=== PATIENT | female | born 1960 | race Caucasian/White ===

== ENCOUNTER 2017-10-09 10:52 | Inpatient (IN) | payer OTHER ==
[~2017-10-09] VITALS: Ht 165.1 cm; Wt 45.9 kg
[~2017-10-09 10:52] MED LIST: CHLO1CAP56 PO; DIAZ10TA4 PO; ESCI10TA PO; ESOM40CA PO; HYDR2TAB36 PO; ONDA4TAB35 PO; OXYC40TA26 PO; SUCR1TAB27 PO
[2017-10-09] MEDS: D5W-0.45 NACL + KCL 20 MEQ 1,000 ML IV SCH ×3 (13:36→23:56)
[2017-10-09] MEDS: HYDROmorphONE 1 MG/ML SYG IV PRN ×3 (13:44→21:00)
[2017-10-09 13:49] LABS: BASOPHILS % 0.4 % (0.0-2.0); HEMATOCRIT 26.7 % (37.0-47.0); HEMOGLOBIN 7.8 g/dl (12.0-16.0); LYMPHOCYTES # 0.9 10^3/ul (0.8-2.9); LYMPHOCYTES % 7.8 % (15.0-51.0); MEAN CORPUSCULAR HEMOGLOBIN 20.1 pg (29.0-33.0); MEAN CORPUSCULAR HGB CONC 29.2 g/dl (32.0-37.0); MEAN CORPUSCULAR VOLUME 68.6 fl (82.0-101.0); MEAN PLATELET VOLUME 9.1 fl (7.4-10.4); MONOCYTE # 0.5 10^3/ul (0.3-0.9); MONOCYTES % 4.7 % (0.0-11.0); NEUTROPHIL # 9.7 10^3/ul (1.6-7.5); NEUTROPHILS % 86.5 % (39.0-77.0); PLATELET COUNT 540 10^3/UL (140-415); RED BLOOD COUNT 3.89 10^6/ul (4.20-5.40); RED CELL DISTRIBUTION WIDTH 19.7 % (11.5-14.5); WHITE BLOOD COUNT 11.2 10^3/ul (4.8-10.8)
[2017-10-09 14:00] VITALS: Ht 165.1 cm; Wt 45.9 kg
[2017-10-09 14:08] LABS: ALBUMIN 4.8 g/dl (3.3-4.9); ALBUMIN/GLOBULIN RATIO 1.5; BILIRUBIN,INDIRECT 0.2 mg/dl (0-1.1); BILIRUBIN,TOTAL 0.2 mg/dl (0.2-1.3); CALCIUM 9.5 mg/dl (8.4-10.2); CREATININE 0.74 mg/dl (0.44-1.00); MAGNESIUM 1.9 mg/dl (1.7-2.5); POTASSIUM 4.1 mmol/L (3.5-5.1)
[2017-10-09] MEDS ORDERED: BARIUM SULF 2% 450 ML BTL (BERRY SMOOTHIE) PO ONE (15:00)
[2017-10-09] MEDS: ONDANSETRON 4 MG INJ IV PRN ×2 (15:24→23:53)
[2017-10-09] MEDS ORDERED: IOHEXOL 300MG/ML 150 ML BTL ONE (15:49)
[2017-10-09] MEDS ORDERED: SOD CHLORIDE 0.9% 100 ML ONE (15:49)
--- NOTE | 2017-10-09 16:17 | RADRPT ---
PROCEDURE: CT abdomen and pelvis with contrast. CLINICAL INDICATION: Severe abdominal pain. Nausea and vomiting. TECHNIQUE: CT scan of the abdomen and pelvis with contrast was performed after the uneventful intrav enous administration of 90 cc of Omnipaque-300. Coronal and sagittal reformatted images were obtaine d from the axial source images. The total exam CTDI equals 5.27 mGy and the total exam DLP equals 26 3.19 mGy-cm. One or more of the following dose reduction techniques were used: - Automated exposure control. - Adjustment of the mA and/or kV according to patient size. - Use of iterative reconstruction technique. COMPARISON: CT dated 09/06/2015. FINDINGS: Visualized lower thorax: The visualized lung bases are clear. The visualized heart is unremarkable. Bilateral breast implants are partially visualized. Hepatobiliary system and spleen: There sub-centimeter hypodensities scattered throughout the liver that are too small to further characterize. There is no intra or extrahepatic biliary ductal dilatat ion. The gallbladder is unremarkable. The spleen is unremarkable. The pancreas is unremarkable. Adrenal glands and genitourinary system: The adrenal glands are unremarkable. There sub-centimeter hypodensities in both kidneys are too small to further characterize. There is no hydronephrosis. The urinary bladder is unremarkable. The uterus is surgically absent. There are no adnexal masses. Gastrointestinal system: There is no bowel wall thickening or evidence of obstruction. The appendix is not identified, but there is no focal inflammatory process in the right lower quadrant. Peritoneum, vascular system, lymphatics: There is no free intraperitoneal air or free fluid. There is no mesenteric or retroperitoneal adenopathy. There are atherosclerotic changes of the aorta, whic h is nonaneurysmal. Musculoskeletal system and soft tissues: There is a moderate compression deformity of the T12 verte bral body, new when compared the prior, but age indeterminate, with associated 6 mm of retropulsion of the fracture fragments into the spinal canal. There is mild lumbar levoscoliosis and moderate to severe degenerative enthesopathy at L4-5, progressed when compared the prior. There are no concernin g osseous lesions. The soft tissues are unremarkable. IMPRESSION: 1. No acute abnormality or findings to suggest a source of the patient's symptoms. 2. Moderate compression deformity of the T12 vertebral body with associated 6 mm of retropulsion of fracture fragments into the spinal canal, new when compared with the exam from 09/06/2015, but age indeterminate. 3. Vascular calcifications consistent with atherosclerosis. RPTAT: HLBP .Carloz Méndez MD, MD Date Time Electronically viewed and signed by .Carloz Méndez MD, MD on 10/09/2017 16:17 .P/
[2017-10-09 17:17] VITALS: BP 186/91
[2017-10-09] MEDS: PANTOPRAZOLE 40 MG INJ IV SCH (17:17)
[2017-10-09 18:10] VITALS: BP 129/78
[2017-10-09 18:25] LABS: IRON 16 ug/dl (35-150)
[2017-10-09 18:35] LABS: TOTAL IRON BINDING CAPACITY 522 ug/dl (241-421)
[2017-10-09 20:25] VITALS: BP 123/79; RESP 21
[2017-10-09] MEDS: DIAZEPAM 5 MG TAB PO PRN (22:18)
--- NOTE | 2017-10-09 22:43 | CONS ---
DATE OF ADMISSION: 10/09/2017 DATE OF CONSULTATION: 10/09/2017 GASTROENTEROLOGY CONSULTATION Thank you for having me see this patient. HISTORY OF PRESENT ILLNESS: As you know, she is a 57-year-old woman who was admitted to the [facility] because of various complaints. She tells me she has had abdominal pain for 1 month. Apparently, she went to see Dr. Grimm today and was found to have high blood pressure and because of that, was a dmitted. Nonetheless, she describes epigastric burning abdominal pain, continually present for the past month. She denies any palliative or provocative factors. Tries with Pepcid and Prevacid have been unsuccessful. She does use Aleve alternate days for back pain. She has noted a heating pad he lps her abdominal pain. There is no history of peptic ulcer disease. Her last endoscopy in [address] Campuzano there was erosive gastritis and esophagitis. Nonetheless, she has not had any rectal bleeding, melena, fever or chills. She does use oxycodone on a routine basis for back pain. In add ition to these complaints, She also has had problems with vomiting. She states she has been unable to eat for 5 days. She also has had intermittent diarrhea. Monday she has normal bowel movements a nd other days she has vaibhav watery stools. PAST MEDICAL HISTORY: Significant for hospitalization for childbirth and ovarian cancer which led t o a hysterectomy at age 31. ADULT ILLNESSES: Significant for kidney stones and back pain. She denies any heart disease, hypert ension, tuberculosis, diabetes or hepatitis. CHILDHOOD: Denies rheumatic fever or scarlet fever. ALLERGIES: TORADOL CAUSED MILD SWELLING. INJURIES: None. MEDICATIONS: Currently include: 1. Pantoprazole. 2. Clonidine. 3. Zofran. 4. Dilaudid 5. Tylenol 6. Valium. SOCIAL HISTORY: The patient is on disability because of back pain. She smokes cigarettes, approxim ately 1 pack weekly. She does not drink alcohol. FAMILY HISTORY: Noncontributory. REVIEW OF SYSTEMS: Negative except as noted above. PHYSICAL EXAMINATION: GENERAL: Shows in general, the patient is a well-developed, thin white female who looks much older than her stated age. VITAL SIGNS: Blood pressure 186/91. Remainder of vital signs, as per nursing records. SKIN: Clear. HEENT: Negative. LUNGS: Clear to percussion and auscultation. CARDIAC: No murmurs, rubs or gallops. ABDOMEN: Soft, nontender, liver 8 cm, spleen not palpable, no masses, normal bowel sounds. RECTAL: Brown stool. LABORATORY DATA: Remarkable for white count of 11.2, hemoglobin 7.8, hematocrit 26.7, MCV 68.6, bridger telets 540. Chemistry showing normal liver tests except for an alkaline phosphatase of 124, amylase 86, lipase 63. CAT scan has been performed and shows no acute abnormality or findings in the abdom en. IMPRESSION: It is unclear as to the etiology of the patient's epigastric abdominal pain associated with vomiting. Certainly, given her Aleve usage, we may need to consider peptic ulcer disease. Giv en the severity of her symptoms, we will try to arrange for endoscopy. In terms of her diarrhea, I have obtained stool studies. In the interim, we will begin her on a course of proton pump inhibitor s. Further recommendations to follow above in clinical course. Thank you for having me see this patient. Dictated By: IRIS THOMAS/GLORIA Conf#: [id number] DID#: [id number] CC: PRICILA GRIMM MD;*EndCC*
[2017-10-10] VITALS (11 sets, daily range): BP systolic 106–204; BP diastolic 63–118; PULSE 76–98; RESP 16–28
[2017-10-10] MEDS: HYDROmorphONE 1 MG/ML SYG IV PRN ×7 (00:01→21:25)
--- NOTE | 2017-10-10 00:41 | HP ---
DATE OF ADMISSION: 10/09/2017 ADMITTING DIAGNOSES: Abdominal pain, nausea and vomiting. HISTORY OF PRESENT ILLNESS: The patient is a 57-year-old female with chronic back pain, h istory of gastritis, esophagitis, who presents to my office today with 1-week history of nausea, vom iting, abdominal pain and diarrhea. Patient was in her usual state of chronic pain last week when s he started to develop nausea, vomiting and abdominal pain. This was also in conjunction with freque nt loose bowel movements. The patient's daughter came back from [place] with an upper respiratory infe ction, but not a GI infection, and the patient thought she might have been exposed to this. Patient has been unable to tolerate much in the order of oral intake including liquids and food. The patie nt has been having some ice chips and water with some tolerability, but barely anything to eat. The patient denies any hematemesis. The patient reports that her emesis appears to be bilious without any blood or coffee-ground look to it. The patient also denies any black stool, but has had darkish stool, but no vaibhav blood noted. Patient has been having ongoing low back pain, as usual, but more so since she has not been able to tolerate as much of her oral pain medications during the past wee k. REVIEW OF SYSTEMS: Otherwise, unremarkable except for occasional palpitations and weakness. PAST MEDICAL HISTORY: Post-laminectomy syndrome, failed back surgery with lumbar radiculitis, chron ic osteoporosis, vertebral compression fractures, gastritis, esophagitis, history of uterine cancer, depression, and anxiety. PAST SURGICAL HISTORY: Lumbar laminectomy status post kyphoplasty to T7, radical hysterectomy with some chemotherapy. FAMILY HISTORY: Mother of a massive stroke. Mother also had a history of atrial fibrillation, hypertension and dermatomyositis. Sister with hypertension and diverticulitis. ALLERGIES: NONE. MEDICATIONS: 1. OxyContin 40 mg b.i.d. 2. Percocet 7.5/325 p.r.n. 3. Dilaudid 2 mg p.r.n. 4. Diazepam 10 mg at bedtime. 5. Lexapro 10 mg daily. SOCIAL HISTORY: The patient is a , currently on disability due to her back. No tobacco, no al cohol use. She is currently living with her daughter. PHYSICAL EXAMINATION: VITAL SIGNS: Afebrile, pulse 88 and regular, respirations 16, afebrile, blood pressure 129/78; the highest was 186/91. GENERAL: Cachectic female, ill appearing, lying in bed. SKIN: No rashes. There is moderate tenting with decreased turgor. HEENT: EOMI, PERRLA. Oropharynx with decreased mucous pooling. NECK: No jugular venous distention. Decreased range of motion in all directions, 2+ carotid upstro ke, no lymphadenopathy, no thyromegaly. CHEST: Clear to auscultation bilaterally. HEART: Regular rate and rhythm. No murmurs, gallops or rubs noted. ABDOMEN: Nondistended, soft, moderate to severe epigastric and upper abdominal tenderness to palpat ion. No masses noted. No hepatosplenomegaly noted. RECTAL: Deferred to gastroenterology. EXTREMITIES: No cyanosis, clubbing or edema. NEUROLOGIC: There is mild diffuse skeletal muscle atrophy left lower extremity greater than right l ower extremity with decreased pinprick, fine touch, and temperature in the left greater than right l ower extremity. Otherwise, nonfocal. LABORATORY EXAMINATION: White blood cell count 11.2, hematocrit of 26.7, hemoglobin of 7.8, platele t count 540. Sodium 139, potassium 4.1, chloride 100, bicarbonate 25, BUN of 13, creatinine 0.74. Blood glucose of 118, calcium 9.5, magnesium 1.9. Iron 16, TIBC 522, percent saturation 3. Ferriti n 6.1. Alkaline phosphatase 124, ALT of 25, AST of 22, total bilirubin 0.2, amylase 86, lipase of 6 3, albumin 4.8. Abdominal pelvic CT scan with contrast shows no acute abnormality. There is modera te compression deformity of T12 with associated 6 mm of retropulsion of fragments into the spinal ca nal, vascular calcifications consistent with atherosclerosis. IMPRESSION: 1. The patient is a 57-year-old female with history of gastritis, esophagitis, post-avery ectomy syndrome with chronic back pain who was admitted to med/surg for severe abdominal pain, nause a and vomiting. 2. Abdominal pain, nausea and vomiting. The patient with 1-week history of current symptoms. Fide ent with history of gastritis and esophagitis in the past. We will place the patient on clear liqui d diet. Will give IV Protonix. Will give p.r.n. Marvin. We will hydrate the patient with IV D5 n ormal saline. Appreciate Dr. Harding's input into this case. The patient is to undergo upper endoscop y tomorrow for further evaluation and treatment. The patient has iron deficiency anemia consistent with possible bleed. Will continue to monitor this and the patient will likely need transfusion onc e she is hydrated and a dilutional effect is apparent. 3. Post-laminectomy syndrome/lumbar radiculitis. The patient has chronic low back pain related to her failed back surgery. We will continue with Dilaudid p.r.n. with 1 mg every 3 hours as patient c annot tolerate oral medications and cannot receive her OxyContin at this time. 4. Anxiety, depression. We will continue the patient's Lexapro. 5. Iron deficiency anemia. As above, the patient has iron deficiency anemia and is likely related to possible upper intestinal bleed. We will follow her hematocrit and transfuse if necessary as nya l likely be happening tomorrow once the dilutional effect of her hydration it is apparent Dictated By: PRICILA BRONSON MD SR/NTS Conf#: [id number] DID#: [id number]
[2017-10-10] MEDS: ONDANSETRON 4 MG INJ IV PRN ×4 (04:36→22:22)
[2017-10-10] MEDS: PANTOPRAZOLE 40 MG INJ IV SCH ×2 (05:13→18:24)
[2017-10-10 06:26] LABS: ABNORMAL IP MESSAGE 1; BASOPHILS % 0.2 % (0.0-2.0); EOSINOPHILS % 0.1 % (0.0-7.0); HEMATOCRIT 22.3 % (37.0-47.0); LYMPHOCYTES # 2.5 10^3/ul (0.8-2.9); LYMPHOCYTES % 27.3 % (15.0-51.0); MEAN CORPUSCULAR HEMOGLOBIN 20.4 pg (29.0-33.0); MEAN CORPUSCULAR HGB CONC 29.1 g/dl (32.0-37.0); MEAN CORPUSCULAR VOLUME 69.9 fl (82.0-101.0); MEAN PLATELET VOLUME 9.2 fl (7.4-10.4); MONOCYTE # 0.7 10^3/ul (0.3-0.9); MONOCYTES % 7.2 % (0.0-11.0); NEUTROPHIL # 5.9 10^3/ul (1.6-7.5); NEUTROPHILS % 64.9 % (39.0-77.0); PLATELET COUNT 438 10^3/UL (140-415); RED BLOOD COUNT 3.19 10^6/ul (4.20-5.40); RED CELL DISTRIBUTION WIDTH 19.9 % (11.5-14.5)
[2017-10-10 06:49] LABS: POSITIVE DIFF @See below
[2017-10-10 06:51] LABS: HEMOGLOBIN 6.5 g/dl (12.0-16.0)
[2017-10-10 06:52] LABS: PATH REVIEW? YES
[2017-10-10 07:09] LABS: CALCIUM 8.7 mg/dl (8.4-10.2); CREATININE 0.76 mg/dl (0.44-1.00); MAGNESIUM 1.9 mg/dl (1.7-2.5); POTASSIUM 4.1 mmol/L (3.5-5.1)
[2017-10-10] MEDS ORDERED: ACETAMINOPHEN 325 MG TAB PO ONE (08:00)
[2017-10-10] MEDS ORDERED: DIPHENHYDRAMINE 50 MG INJ IV ONE (08:00)
[2017-10-10] MEDS: ESCITALOPRAM 10 MG TAB PO SCH (08:07)
[2017-10-10] MEDS: D5W-0.45 NACL + KCL 20 MEQ 1,000 ML IV SCH ×3 (08:10→20:19)
--- NOTE | 2017-10-10 08:22 | PN ---
DATE: 10/10/2017 SUBJECTIVE: The patient is feeling a little bit better, with less nausea, has not vomited since yes terday. The patient continues to have 8/10 back and abdominal pain as well as a headache. OBJECTIVE: VITAL SIGNS: Temperature 98.2, pulse 65, respirations 21, blood pressure 106/63, oxygen saturation 98% on room air. GENERAL: Well-developed, thin female in no acute distress, lying in bed. LUNGS: Clear to auscultation bilaterally. HEART: Regular rate and rhythm. ABDOMEN: Moderate epigastric tenderness to mild palpation, soft, nondistended, normoactive bowel so unds. LABORATORY DATA: Sodium 138, potassium 4.1, chloride 103, bicarbonate 26, BUN of 8, creatinine 0.76 , glucose 100, calcium 8.7, magnesium 1.9, hemoglobin of 6.5, hematocrit of 22.3, platelets of 438 w josue blood cell count 9.0. ASSESSMENT AND PLAN: 1. Abdominal pain, stable, but persists. Patient with probable acute gastritis with bleed. Patien t is to undergo endoscopy later today. Continue with intravenous Protonix, clear liquids and p.r.n. analgesics. 2. Anemia. The patient now with a hemoglobin of 6.5. Will type and cross 2 units of packed red bl ood cells and transfused 2 units. Will premedicate the first unit with Tylenol and Benadryl. We wi ll continue to follow the hematocrit. 3. Lumbar radiculopathy/back pain, stable, but persistent. Patient with probable new T12 compressi on fracture based on recent CAT scan results. We will continue with analgesia. Patient may need an MRI in the near future as an outpatient to evaluate this further, as there is a 6 mm retropulsion w ith a fragment. 4. Depression, anxiety. We will continue the patient's medication. Dictated By: PRICILA BRONSON MD SR/GLORIA Conf#: [id number] DID#: [id number]
[2017-10-10] MEDS ORDERED: PHENYLephrine (100 MCG/ML) 5ML SYG ONE (15:50)
[2017-10-10] MEDS ORDERED: LIDOCAINE 2% (SDV) 5 ML INJ ONE (15:50)
[2017-10-10] MEDS ORDERED: PROPOFOL 40 ML ONE (15:50)
[2017-10-10] MEDS ORDERED: hydrALAzine 20 MG INJ IV PRN (16:00)
[2017-10-10] MEDS ORDERED: OXYCODONE/ACETAMINOPHEN (5/325) TAB PO PRN ×2 (16:00)
[2017-10-10] MEDS ORDERED: morphine (1 MG/ML) 10ML SYRINGE IV PRN ×2 (16:00)
[2017-10-10] MEDS ORDERED: ONDANSETRON 4 MG INJ IV PRN (16:00)
[2017-10-10] MEDS ORDERED: EPHEDrine SULFATE 50 MG/5 ML SYG IV PRN (16:00)
[2017-10-10] MEDS ORDERED: TRIMETHOBENZAMIDE 100 MG/ML VIAL IM PRN (16:00)
[2017-10-10] MEDS ORDERED: METOCLOPRAMIDE 10 MG INJ IV PRN (16:00)
--- NOTE | 2017-10-10 16:32 | OPPN ---
Date/Time of Note Date/Time of Note DATE: 10/10/17 TIME: 16:26 Proc Note GI Procedure Date 10/10/17 Indication: diagnostic Pre-procedure Diagnosis anemia, pain, nausea and vomiting Post-procedure Diagnosis Diffuse Gastritis Procedure Performed: Endoscopy Surgeon see signature line Supervisor [place] none Anesthesia Type: MAC Tourniquet Time none EBL none Transfusion required none Biopsy 1: gastric Biopsy 2: duodenum Biopsy 3: ge Grafts/Implants none Tubes/Drains none Complication(s) none Procedure Description After informed consent, the patient was placed in left lateral position and sedated per anesthesia. The Olympus video endoscope was easily passed into the patient's esophagus. The instrument advanced to the stomach. The pylorus was seen. The duodenal bulb and second portion of the duodenum were examined. The duodenal bulb appeared normal. The second portion of duodenum appeared normal and vaccine customer representative biopsies were performed. There was no untoward bleeding sites. The instrument was removed the patient's stomach which was carefully examined including turnaround procedure. Diffuse gastric atrophy and erythema was noted. Ice Skating Coach biopsies were performed histologic examination. There is no intra-bleeding from any sites. The instrument was removed to the gastroesophageal junction were irregular Z line was noted. This was biopsied. There is no intra-bleeding from the site. Instrument was removed the proximal esophagus where an inlet patch was noted. The instrument removed and the canal prepared childbirth well. Complications: None Impression: 1. Diffuse gastritis 2. Irregular Z line 3. Inlet patch Plan: 1. Await biopsy results 2. Continue PPI therapy 3. Proceed with gastric emptying study 4. Will need colonoscopy when she is able to tolerate preparation for that. IRIS CHAMBERS MD Oct 10, 2017 16:32
[2017-10-10] MEDS: morphine (1 MG/ML) 10ML SYRINGE IV PRN ×2 (17:09→17:22)
[2017-10-10] MEDS: ACETAMINOPHEN 325 MG TAB PO PRN (20:20)
[2017-10-10] MEDS: DIAZEPAM 5 MG TAB PO PRN (22:20)
[2017-10-11] MEDS: HYDROmorphONE 1 MG/ML SYG IV PRN ×8 (00:25→23:16)
[2017-10-11 02:27] VITALS: BP 131/68; RESP 18
[2017-10-11] MEDS: D5W-0.45 NACL + KCL 20 MEQ 1,000 ML IV SCH ×4 (03:34→23:28)
[2017-10-11 06:18] LABS: BASOPHIL # 0.1 10^3/ul (0.0-0.1); BASOPHILS % 0.5 % (0.0-2.0); EOSINOPHILS # 0.1 10^3/ul (0.0-0.5); EOSINOPHILS % 0.6 % (0.0-7.0); HEMATOCRIT 32.2 % (37.0-47.0); HEMOGLOBIN 9.9 g/dl (12.0-16.0); LYMPHOCYTES # 1.8 10^3/ul (0.8-2.9); LYMPHOCYTES % 17.5 % (15.0-51.0); MEAN CORPUSCULAR HEMOGLOBIN 22.6 pg (29.0-33.0); MEAN CORPUSCULAR HGB CONC 30.7 g/dl (32.0-37.0); MEAN CORPUSCULAR VOLUME 73.3 fl (82.0-101.0); MEAN PLATELET VOLUME 9.2 fl (7.4-10.4); MONOCYTE # 0.7 10^3/ul (0.3-0.9); MONOCYTES % 6.5 % (0.0-11.0); NEUTROPHIL # 7.5 10^3/ul (1.6-7.5); NEUTROPHILS % 74.6 % (39.0-77.0); PLATELET COUNT 395 10^3/UL (140-415); RED BLOOD COUNT 4.39 10^6/ul (4.20-5.40); WHITE BLOOD COUNT 10.1 10^3/ul (4.8-10.8)
[2017-10-11] MEDS: PANTOPRAZOLE 40 MG INJ IV SCH (06:31)
[2017-10-11 06:46] LABS: CALCIUM 9.1 mg/dl (8.4-10.2); CREATININE 0.8 mg/dl (0.44-1.00); MAGNESIUM 1.8 mg/dl (1.7-2.5); POTASSIUM 4.1 mmol/L (3.5-5.1)
[2017-10-11 07:35] VITALS: BP 140/82; RESP 15
[2017-10-11] MEDS: ESCITALOPRAM 10 MG TAB PO SCH (08:10)
--- NOTE | 2017-10-11 09:18 | PN ---
DATE: 10/11/2017 SUBJECTIVE: Patient is feeling about the same; has significant abdominal pain, actually worse since yesterday. The patient also with headaches seems to get worse after Zofran. The patient continues to be nauseated. OBJECTIVE: VITAL SIGNS: Temperature 98.5, pulse of 75, respirations 18, blood pressure 131/68, oxygen saturati on 97% on room air. LUNGS: Clear to auscultation bilaterally. HEART: Regular rate and rhythm. ABDOMEN: Moderate to severe tenderness to mild palpation in the epigastric area, soft, nondistended . Decreased bowel sounds. EXTREMITIES: No cyanosis, clubbing or edema. LABORATORY DATA: Sodium 139, potassium 4.1, chloride 106, bicarbonate 28, BUN of 5, creatinine 0.8, blood sugar 104, calcium 9.1, magnesium 1.8. Hemoglobin of 9.9, hematocrit 32.2, platelets 395, wh ite blood cell count 10.1. ASSESSMENT AND PLAN: 1. Abdominal pain, nausea, vomiting. Patient remained stable. The patient had upper endoscopy yes terday showing a diffuse gastritis and some irregular Z-line and biopsies were obtained from the eso phagus and the stomach. The patient is on schedule for a gastric emptying study today. We will con tinue with current medications with proton pump inhibitor and antiemetics. After the gastric emptyi ng study, we will change patient over to Reglan to see if this improves her nausea and reduce headac he. 2. Anemia, improved after transfusion. We will continue to monitor. 3. Lumbar radiculopathy, post-laminectomy syndrome, stable, but persistent. We will continue with p.r.n. analgesics. Dictated By: PRICILA BRONSON MD, SR/NTS Conf#: [id number] DID#: [id number]
--- NOTE | 2017-10-11 12:50 | CONS ---
Date/Time of Note Date/Time of Note DATE: 10/11/17 TIME: 12:45 Consult Date/Type/Reason Admit Date/Time Oct 09, 2017 at 11:49 Initial Consult Date Type of Consultation: GI Subjective Still complains of abdominal pain and nausea No vomiting noted Only 1 bm recorded since admission Objective Vital Signs Date Time Temp Pulse Resp B/P Pulse Ox O2 Delivery O2 Flow Rate FiO2 10/11/17 07:35 98.6 75 15 140/82 97 10/10/17 17:16 Nasal Cannula 2.0 Abdomen: soft, non tender, + bs Intake and Output 10/10/17 10/10/17 10/11/17 15:00 23:00 07:00 Intake Total 375 ml 200 ml 1600 ml Output Total 1500 ml Balance 375 ml 200 ml 100 ml Results/Medications Result Diagram: 10/11/1751910/11/17 0520 Results 24 hrs Laboratory Tests Test 10/11/17 05:20 10/11/17 05:38 White Blood Count 10.1 Red Blood Count 4.39 # Hemoglobin 9.9 #L Hematocrit 32.2 #L Mean Corpuscular Volume 73.3 L Mean Corpuscular Hemoglobin 22.6 L Mean Corpuscular Hemoglobin Concent 30.7 L Red Cell Distribution Width 21.0 H Platelet Count 395 Mean Platelet Volume 9.2 Neutrophils % 74.6 Lymphocytes % 17.5 Monocytes % 6.5 Eosinophils % 0.6 Basophils % 0.5 Nucleated Red Blood Cells % 0.0 Neutrophils # 7.5 Lymphocytes # 1.8 Monocytes # 0.7 Eosinophils # 0.1 Basophils # 0.1 Nucleated Red Blood Cells # 0.0 Sodium Level 139 Potassium Level 4.1 Chloride Level 106 Carbon Dioxide Level 28 Anion Gap 9 Blood Urea Nitrogen 5 L Creatinine 0.80 Glucose Level 104 Calcium Level 9.1 Magnesium Level 1.8 Lab Scanned Report BLOOD TRANSFUSION Medications Current Medications Potassium Chloride/Dextrose/ Sod Cl (D5-1/2ns + KCl 20 Meq) 1,000 ml @ 125 mls/ hr Q8H IV Last administered on 10/11/17 12:31; Admin Dose 125 MLS/HR; Start 10/09/17 at 13:00 Pantoprazole (Protonix Iv) 40 mg BID@06,18 IV Last administered on 10/11/17 06:31; Admin Dose 40 MG; Start 10/09/17 at 18:00 Ondansetron HCl (Zofran Inj) 4 mg Q4H PRN IV NAUSEA AND/OR VOMITING Last administered on 10/10/17 22:22; Admin Dose 4 MG; Start 10/09/17 at 13:00 Acetaminophen (Tylenol Tab) 650 mg Q6H PRN PO PAIN AND OR ELEVATED TEMP Last administered on 10/10/17 20:20; Admin Dose 650 MG; Start 10/09/17 at 13:00 Diazepam (Valium) 10 mg HS PRN PO insomnia Last administered on 10/10/17 22: 20; Admin Dose 10 MG; Start 10/09/17 at 13:00 Clonidine (Catapres) 0.1 mg Q6H PRN PO ELEVATED BLOOD PRESSURE Last administered on 10/09/17 15:27; Admin Dose 0.1 MG; Start 10/09/17 at 15:30 Hydromorphone HCl (Dilaudid) 1 mg Q3H PRN IV PAIN LEVEL 6-10 Last administered on 10/11/17 12:32; Admin Dose 1 MG; Start 10/09/17 at 21:00 Escitalopram Oxalate (Lexapro) 10 mg DAILY PO ; Start 10/10/17 at 09:00 Metoclopramide HCl (Reglan) 5 mg Q6H PRN IV NAUSEA; Start 10/11/17 at 08:00 Assessment/Plan Chief Complaint/Hosp Course Impression: 1. Abdominal pain and nausea - suspect this may be related to narcotic usage, ? component of delayed gastric emptying from narcotics 2. Barretts Esophagus on bx of GE junction - short segment 3. Iron Deficiency anemia Plan: 1. Await gastric emptying study 2. Advance diet pending above 3. Continue ppi but switch to po 4. Will need elective colonoscopy re iron deficiency anemia 5. FU EGD for Barretts in 1 year Problems: IRIS CHAMBERS MD Oct 11, 2017 12:50
[2017-10-11 14:00] VITALS: BP 161/83; RESP 20
--- NOTE | 2017-10-11 16:50 | RADRPT ---
PROCEDURE: Gastric emptying scan CLINICAL INDICATION: 57 -year-old patient with abdominal pain, nausea and vomiting. TECHNIQUE: Following the oral administration of 1.0 mCi of Tc-99m sulfur colloid, labeled to a day id meal, gastric emptying study was obtained. COMPARISON: No prior studies. FINDINGS: The stomach is well visualized. The small intestines are identified. There is evidence of upper level normal gastric emptying rate from the start of the study with calcu lated T1/2 time of 90 minutes (normal range is 30 - 90 minutes). There is no evidence of increased activity in the chest to suggest the presence of gastroesophageal reflux. IMPRESSION: Upper level normal gastric emptying rate . RPTAT: HH .Andreea Coyne MD, Date Time Electronically viewed and signed by .Andreea Coyne MD, MD on 10/11/2017 16:50 .L/
[2017-10-11] MEDS: METOCLOPRAMIDE 10 MG INJ IV PRN (16:53)
[2017-10-11] MEDS: PANTOPRAZOLE (EC) 40 MG TAB PO SCH (17:30)
[2017-10-11] MEDS: DIAZEPAM 5 MG TAB PO PRN (21:02)
[2017-10-11 21:37] VITALS: BP 135/93; RESP 18
[2017-10-12] VITALS (7 sets, daily range): BP systolic 142–189; BP diastolic 81–97; PULSE 58–72; RESP 16–19
[2017-10-12] MEDS: HYDROmorphONE 1 MG/ML SYG IV PRN ×8 (02:14→22:34)
[2017-10-12] MEDS: PANTOPRAZOLE (EC) 40 MG TAB PO SCH ×2 (05:06→17:14)
[2017-10-12] MEDS: METOCLOPRAMIDE 10 MG INJ IV PRN ×3 (05:11→17:59)
[2017-10-12 05:38] LABS: BASOPHILS % 0.3 % (0.0-2.0); EOSINOPHILS % 0.4 % (0.0-7.0); HEMATOCRIT 31.7 % (37.0-47.0); HEMOGLOBIN 9.8 g/dl (12.0-16.0); LYMPHOCYTES # 2.3 10^3/ul (0.8-2.9); LYMPHOCYTES % 21.7 % (15.0-51.0); MEAN CORPUSCULAR HGB CONC 30.9 g/dl (32.0-37.0); MEAN CORPUSCULAR VOLUME 74.4 fl (82.0-101.0); MEAN PLATELET VOLUME 9.6 fl (7.4-10.4); MONOCYTE # 0.8 10^3/ul (0.3-0.9); MONOCYTES % 7.8 % (0.0-11.0); NEUTROPHIL # 7.5 10^3/ul (1.6-7.5); NEUTROPHILS % 69.3 % (39.0-77.0); PLATELET COUNT 413 10^3/UL (140-415); RED BLOOD COUNT 4.26 10^6/ul (4.20-5.40); RED CELL DISTRIBUTION WIDTH 21.4 % (11.5-14.5); WHITE BLOOD COUNT 10.8 10^3/ul (4.8-10.8)
[2017-10-12] MEDS: D5W-0.45 NACL + KCL 20 MEQ 1,000 ML IV SCH ×2 (06:11→17:54)
[2017-10-12] MEDS: ACETAMINOPHEN 325 MG TAB PO PRN (06:11)
[2017-10-12 06:43] LABS: CALCIUM 9.2 mg/dl (8.4-10.2); CREATININE 0.68 mg/dl (0.44-1.00); MAGNESIUM 1.7 mg/dl (1.7-2.5); POTASSIUM 3.6 mmol/L (3.5-5.1)
[2017-10-12] MEDS: SUCRALFATE 1 GM TAB PO SCH ×3 (08:10→17:14)
[2017-10-12] MEDS: ONDANSETRON 4 MG INJ IV PRN ×3 (08:10→20:13)
[2017-10-12] MEDS: ESCITALOPRAM 10 MG TAB PO SCH (08:10)
--- NOTE | 2017-10-12 08:15 | CONS ---
Date/Time of Note Date/Time of Note DATE: 10/12/17 TIME: 08:10 Consult Date/Type/Reason Admit Date/Time Oct 09, 2017 at 11:49 Type of Consultation: GI Subjective Still complaining of pain all over, back, abdomen Tolerating clear liquids No bm whatsoever Emptying study normal Objective Vital Signs Date Time Temp Pulse Resp B/P Pulse Ox O2 Delivery O2 Flow Rate FiO2 10/12/17 07:25 98.0 51 16 175/91 96 10/10/17 17:16 Nasal Cannula 2.0 Abdomen: soft, non tender Intake and Output 10/11/17 10/11/17 10/12/17 15:00 23:00 07:00 Intake Total 1000 ml 0 ml 2275 ml Balance 1000 ml 0 ml 2275 ml Results/Medications Result Diagram: 10/12/17 0440 10/12/17 0439 Results 24 hrs Laboratory Tests Test 10/12/17 04:39 10/12/17 04:40 Sodium Level 140 Potassium Level 3.6 Chloride Level 104 Carbon Dioxide Level 29 Anion Gap 11 Blood Urea Nitrogen 4 L Creatinine 0.68 Glucose Level 81 Calcium Level 9.2 Magnesium Level 1.7 White Blood Count 10.8 Red Blood Count 4.26 Hemoglobin 9.8 L Hematocrit 31.7 L Mean Corpuscular Volume 74.4 L Mean Corpuscular Hemoglobin 23.0 L Mean Corpuscular Hemoglobin Concent 30.9 L Red Cell Distribution Width 21.4 H Platelet Count 413 Mean Platelet Volume 9.6 Neutrophils % 69.3 Lymphocytes % 21.7 Monocytes % 7.8 Eosinophils % 0.4 Basophils % 0.3 Nucleated Red Blood Cells % 0.0 Neutrophils # 7.5 Lymphocytes # 2.3 Monocytes # 0.8 Eosinophils # 0.0 Basophils # 0.0 Nucleated Red Blood Cells # 0.0 Medications Current Medications Potassium Chloride/Dextrose/ Sod Cl (D5-1/2ns + KCl 20 Meq) 1,000 ml @ 125 mls/ hr Q8H IV Last administered on 10/12/17 06:11; Admin Dose 125 MLS/HR; Start 10/09/17 at 13:00 Ondansetron HCl (Zofran Inj) 4 mg Q4H PRN IV NAUSEA AND/OR VOMITING Last administered on 10/10/17 22:22; Admin Dose 4 MG; Start 10/09/17 at 13:00 Acetaminophen (Tylenol Tab) 650 mg Q6H PRN PO PAIN AND OR ELEVATED TEMP Last administered on 10/12/17 06:11; Admin Dose 650 MG; Start 10/09/17 at 13:00 Diazepam (Valium) 10 mg HS PRN PO insomnia Last administered on 10/11/17 21: 02; Admin Dose 10 MG; Start 10/09/17 at 13:00 Clonidine (Catapres) 0.1 mg Q6H PRN PO ELEVATED BLOOD PRESSURE Last administered on 10/12/17 05:07; Admin Dose 0.1 MG; Start 10/09/17 at 15:30 Hydromorphone HCl (Dilaudid) 1 mg Q3H PRN IV PAIN LEVEL 6-10 Last administered on 10/12/17 05:10; Admin Dose 1 MG; Start 10/09/17 at 21:00 Escitalopram Oxalate (Lexapro) 10 mg DAILY PO ; Start 10/10/17 at 09:00 Metoclopramide HCl (Reglan) 5 mg Q6H PRN IV NAUSEA Last administered on 05:11; Admin Dose 5 MG; Start 10/11/17 at 08:00 Pantoprazole 40 mg 40 mg BID@06,18 PO Last administered on 10/12/17 05:06; Admin Dose 40 MG; Start 10/11/17 at 18:00 Magnesium Sulfate (Magnesium Sulfate 2 Gm/50 ml) 50 ml @ 25 mls/hr ONCE ONCE IVPB ; Start 10/12/17 at 09:00; Stop 10/12/17 at 10:59 Sucralfate (Carafate) 1 gm QID PO ; Start 10/12/17 at 09:00 Assessment/Plan Chief Complaint/Hosp Course Impression: 1. Abdominal pain and nausea - no evidence of gastroparesis - suspect symptoms related to narcotics usage 2. Barretts Esophagus on bx of GE junction - short segment - need fu EGD in 1 year 3. Iron Deficiency anemia - will try to arrange colonoscopy for tomorrow Plan: Discussed colonoscopy including risk/benefit in depth with patient. Have tentatively scheduled for 730 am pending availability of anesthesia in as much it would be difficult to adequately sedate given her chronic narcotic usage Problems: IRIS CHAMBERS MD Oct 12, 2017 08:15
--- NOTE | 2017-10-12 08:25 | PN ---
DATE: 10/12/2017 SUBJECTIVE: The patient continues to have significant abdominal pain as well as back pain. The pat ient's nausea is a little bit better and patient has had no more vomiting and no diarrhea. PHYSICAL EXAMINATION VITAL SIGNS: Blood pressure maximum was 182/84 and 142/81, pulse of 58, temperature 98.6, oxygen sa turation 95% on room air. GENERAL: Well-developed, thin female in mild distress, lying in bed. LUNGS: Clear to auscultation bilaterally. HEART: Regular rate and rhythm. ABDOMEN: Moderate to severe tenderness to minimal palpation of the abdomen. It is soft, nondistend ed. Decreased bowel sounds. LABORATORY DATA: Sodium 140, potassium 3.6, chloride 104, bicarbonate 29, BUN 4, creatinine 0.68, b lood glucose 81, calcium 9.2, magnesium 1.7, hemoglobin 9.8, hematocrit 31.7, white blood cell count 10.8, platelets 413. Biopsy results shows Guajardo esophagus and moderate chronic gastritis with mo derate active inflammation, negative for celiac. Gastric emptying study was normal. ASSESSMENT AND PLAN: 1. Abdominal pain. The patient continues to have moderate to severe abdominal pain requiring signi ficant medications. We will continue with current medications, diet and add Carafate to patient's r egimen. Patient will need a colonoscopy and we will discuss with Dr. Harding whether or not this can b e done during this admission. This patient does have iron deficiency anemia and may not be fully ex plained by her gastritis. 2. Anemia, stable after receiving 2 units of packed red blood cells. We will continue to monitor. 3. Hypomagnesemia. Will give 2 grams of IV magnesium sulfate today. 4. Post-laminectomy syndrome, low back pain, stable but persistent. Continue with medications. Dictated By: PRICILA BRONSON MD SR/NTS Conf#: [id number] DID#: [id number]
[2017-10-12] MEDS ORDERED: MAGNESIUM SULFATE 2 GM/50 ML 50 ML IVPB ONE (09:00)
[2017-10-12] MEDS ORDERED: BISACODYL (EC) 5 MG TAB PO ONE ×2 (10:00→17:00)
[2017-10-12] MEDS ORDERED: MAGNESIUM CITRATE 300 ML BTL PO ONE (12:00)
[2017-10-12] MEDS ORDERED: POLYETHYLENE GLYCOL 3350 119 GM POWDER PO ONE ×2 (16:00→20:00)
--- NOTE | 2017-10-12 16:59 | RADRPT ---
PROCEDURE: Chest x-ray CLINICAL INDICATION: Abdominal pain TECHNIQUE: Chest single view COMPARISON: 09/07/2015 FINDINGS: The heart is normal in size. The pulmonary vessels are normal in caliber. The lungs are clear. Th e costophrenic angles are sharp. There post kyphoplasty changes in the thoracic spine. Bones are ost eopenic. IMPRESSION: No acute cardiopulmonary disease. No interval change RPTAT: HH .Antoine Albert MD, MD Date Time Electronically viewed and signed by .Antoine Albert MD, on 10/12/2017 16:58 .W/
[2017-10-12] MEDS: DIAZEPAM 5 MG TAB PO PRN (23:45)
[2017-10-13] VITALS (10 sets, daily range): BP systolic 128–162; BP diastolic 65–89; PULSE 55–83; RESP 16–19
[2017-10-13] MEDS: ONDANSETRON 4 MG INJ IV PRN ×5 (00:46→18:36)
[2017-10-13] MEDS: HYDROmorphONE 1 MG/ML SYG IV PRN ×11 (00:46→23:38)
[2017-10-13] MEDS: METOCLOPRAMIDE 10 MG INJ IV PRN ×4 (02:06→23:56)
[2017-10-13] MEDS: D5W-0.45 NACL + KCL 20 MEQ 1,000 ML IV SCH ×4 (03:22→23:57)
[2017-10-13] MEDS: PANTOPRAZOLE (EC) 40 MG TAB PO SCH ×3 (05:20→18:12)
[2017-10-13 05:59] LABS: ABNORMAL IP MESSAGE 1; BASOPHILS % 0.3 % (0.0-2.0); EOSINOPHILS # 0.1 10^3/ul (0.0-0.5); EOSINOPHILS % 0.9 % (0.0-7.0); HEMATOCRIT 33.3 % (37.0-47.0); HEMOGLOBIN 10.1 g/dl (12.0-16.0); LYMPHOCYTES # 2.7 10^3/ul (0.8-2.9); LYMPHOCYTES % 22.4 % (15.0-51.0); MEAN CORPUSCULAR HEMOGLOBIN 22.4 pg (29.0-33.0); MEAN CORPUSCULAR HGB CONC 30.3 g/dl (32.0-37.0); MEAN PLATELET VOLUME 9.4 fl (7.4-10.4); MONOCYTE # 0.9 10^3/ul (0.3-0.9); MONOCYTES % 7.5 % (0.0-11.0); NEUTROPHIL # 8.2 10^3/ul (1.6-7.5); NEUTROPHILS % 68.5 % (39.0-77.0); PLATELET COUNT 414 10^3/UL (140-415); RED CELL DISTRIBUTION WIDTH 22.6 % (11.5-14.5)
[2017-10-13 06:19] LABS: INR 1.03; PROTIME 13.5 Sec (12.2-14.2); PT RATIO 1.1
[2017-10-13 06:20] LABS: PARTIAL THROMBOPLASTIN TIME 27.2 Sec (25.0-35.0)
[2017-10-13 06:28] LABS: CALCIUM 9.5 mg/dl (8.4-10.2); CREATININE 0.68 mg/dl (0.44-1.00); MAGNESIUM 2.1 mg/dl (1.7-2.5); POTASSIUM 4.5 mmol/L (3.5-5.1)
[2017-10-13] MEDS ORDERED: PROPOFOL 60 ML ONE (06:56)
[2017-10-13] MEDS ORDERED: LIDOCAINE 2% (SDV) 5 ML INJ ONE (06:56)
[2017-10-13 06:59] LABS: POSITIVE DIFF @See below
--- NOTE | 2017-10-13 07:42 | OPPN ---
Date/Time of Note Date/Time of Note DATE: 10/13/17 TIME: 07:32 Proc Note GI Procedure Date 10/13/17 Indication: diagnostic Pre-procedure Diagnosis Iron Deficiency Anemia Post-procedure Diagnosis Colon Polyps, Diverticulosis Procedure Performed: Colonoscopy Surgeon see signature line Relief Driller none Anesthesia Type: MAC Anesthesiologist: SARY CONCEPCION MD Tourniquet Time none EBL none Transfusion required none Biopsy 1: R Colon Biopsy 2: L Colon Grafts/Implants none Tubes/Drains none Complication(s) none Disposition: PACU Procedure Description After informed consent, the patient was placed in the left lateral position and sedated per anesthesia. The Olympus video pediatric colonoscope was easily passed into the patient's rectum. The anus was advanced to the sigmoid descending transverse and descending colon to the cecum. The appendiceal orifice and ileocecal valve were identified. Ileocecal valve was traversed. Normal ileum was encountered. Attention was then removed to the cecum and ascending colon. Within the ascending colon an 8 mm sessile polypoid lesion was seen and removed in toto with cold snare technique. The instrument was then removed the remainder of the ascending colon were number of diverticuli were noted. The instrument was removed to the transverse colon which appeared normal. In the descending and sigmoid colon there was a 6 mm sessile polypoid lesion seen removed in toto with cold snare. In addition there were 3 polypoid lesions ranging from 2-4 mm removed in toto with cold biopsy technique. There was no untoward bleeding from any of the polypectomy or biopsy sites. The instrument was removed the patient's rectum. Turnaround procedure was within normal limits. Complications: None Withdrawal time: 15 minutes Preparation: Good Impression: 1. Multiple colon polyps removed by biopsy and snare technique 2. Diverticulosis 3. Above findings do not explain iron deficiency anemia which may very well be due to her previously diagnosed gastritis Plan: 1. Await biopsy results 2. I will sign off for now and leave further management to Dr. Grimm regarding discharge planning. I will be happy to see again at your request 3. Continue ppi and avoid nsaids 4. OP fu Dr Grimm re stools OB, Fe,IBC,Ferritin,CBC. IRIS CHAMBERS MD Oct 13, 2017 07:42
[2017-10-13] MEDS: ESCITALOPRAM 10 MG TAB PO SCH (08:27)
--- NOTE | 2017-10-13 09:17 | PN ---
DATE: 10/13/2017 SUBJECTIVE: Patient continues to have significant abdominal pain, no more vomiting, no diarrhea. OBJECTIVE: VITAL SIGNS: Blood pressure 162/86, pulse 55, respirations 18, temperature 97.2, oxygen saturation 99% on room air. GENERAL: Well-developed, thin female in no acute distress, lying in bed. CHEST: Clear to auscultation. HEART: Regular rhythm but bradycardic. ABDOMEN: Soft, nondistended, there is significant upper abdominal tenderness to mild palpation. No masses noted. EXTREMITIES: No cyanosis, clubbing or edema. LABORATORY DATA: Hemoglobin of 10.1, hematocrit of 33.3, white blood cell count 12.0, platelets of 414. Sodium 142, potassium 4.5, chloride 106, bicarbonate 27, BUN of 3, creatinine 0.68. Magnesium 2.1, calcium 9.5, glucose 96 colonoscopy multiple polyps, 5 removed, with some diverticula present, otherwise no active bleeding. ASSESSMENT AND PLAN: 1. Abdominal pain. Patient continues to have moderate to severe abdominal pain, unclear etiology. The patient does have gastritis, esophagitis and this is being treated. We will continue with prot on pump inhibitors as well as the Carafate, diet. The patient will remain here and will try some be tter pain control, but will adjust medications. 2. Anemia, remains stable after transfusion, no active bleeding per colonoscopy and upper endoscopy , but gastritis is the likely source for iron deficiency. 3. Back pain/post laminectomy, syndrome/compression fracture. This may be in part related to her a bdominal pain as she does have a T12 compression fracture which may be giving radicular pain radiati ng across the belly. We will refer patient for pain management after discharge to assist with pain control 4. Hypomagnesemia, improved after replacement. Will continue to monitor. Dictated By: PRICILA BRONSON MD, SR/GLORIA Conf#: [id number] DID#: [id number]
--- NOTE | 2017-10-13 13:19 | RADRPT ---
Vent Rate: 49 bpm RR Interval: 0 msec LA Interval: 138 msec QRS Duration: 86 msec QT Interval: 470 msec QTC Interval: 424 msec P-R-T [place]: 72 - 82 - 78 degrees Marked sinus bradycardia with premature atrial complexes Abnormal ECG Electronically Signed By: Kunal Burton [id number]
[2017-10-13] MEDS: DIAZEPAM 5 MG TAB PO PRN (21:45)
[2017-10-14] MEDS: HYDROmorphONE 1 MG/ML SYG IV PRN ×10 (01:40→22:01)
[2017-10-14] MEDS: ONDANSETRON 4 MG INJ IV PRN ×4 (01:43→19:53)
[2017-10-14 02:00] VITALS: BP 139/73; RESP 18
[2017-10-14] MEDS: D5W-0.45 NACL + KCL 20 MEQ 1,000 ML IV SCH ×3 (05:00→16:57)
[2017-10-14 05:16] LABS: ABNORMAL IP MESSAGE 1; BASOPHIL # 0.1 10^3/ul (0.0-0.1); BASOPHILS % 0.6 % (0.0-2.0); EOSINOPHILS # 0.1 10^3/ul (0.0-0.5); EOSINOPHILS % 1.4 % (0.0-7.0); HEMOGLOBIN 10.1 g/dl (12.0-16.0); LYMPHOCYTES # 2.8 10^3/ul (0.8-2.9); LYMPHOCYTES % 29.6 % (15.0-51.0); MEAN CORPUSCULAR HEMOGLOBIN 22.9 pg (29.0-33.0); MEAN CORPUSCULAR HGB CONC 30.6 g/dl (32.0-37.0); MEAN CORPUSCULAR VOLUME 74.7 fl (82.0-101.0); MONOCYTE # 0.8 10^3/ul (0.3-0.9); MONOCYTES % 8.2 % (0.0-11.0); NEUTROPHIL # 5.6 10^3/ul (1.6-7.5); NEUTROPHILS % 59.8 % (39.0-77.0); PLATELET COUNT 407 10^3/UL (140-415); RED BLOOD COUNT 4.42 10^6/ul (4.20-5.40); WHITE BLOOD COUNT 9.4 10^3/ul (4.8-10.8)
[2017-10-14 05:34] LABS: CALCIUM 9.5 mg/dl (8.4-10.2); CREATININE 0.85 mg/dl (0.44-1.00); MAGNESIUM 1.8 mg/dl (1.7-2.5); POTASSIUM 4.5 mmol/L (3.5-5.1)
[2017-10-14] MEDS: PANTOPRAZOLE (EC) 40 MG TAB PO SCH ×2 (05:37→17:00)
[2017-10-14 06:55] LABS: POSITIVE DIFF @See below
[2017-10-14] MEDS: METOCLOPRAMIDE 10 MG INJ IV PRN ×3 (07:03→22:58)
[2017-10-14 08:30] VITALS: BP 144/85; RESP 17
[2017-10-14] MEDS: ESCITALOPRAM 10 MG TAB PO SCH (08:31)
[2017-10-14 14:00] VITALS: BP_SYST 144; BP_SYST 150; BP_DIAS 85; RESP 17
[2017-10-14 21:04] VITALS: BP 121/87; RESP 18
[2017-10-14] MEDS: DIAZEPAM 5 MG TAB PO PRN (22:58)
--- NOTE | 2017-10-14 23:29 | PN ---
DATE: 10/14/2017 SUBJECTIVE: The patient continues to have significant abdominal pain, back pain and nausea. The pa ashli feels slightly worse after yesterday's procedure. OBJECTIVE: VITAL SIGNS: Temperature 99.0, pulse 80, respirations 18, blood pressure 121/87, oxygen saturation 98% on room air. GENERAL: Well-developed, thin female in no acute distress, lying in bed. CHEST: Clear to auscultation bilaterally. HEART: Regular rate and rhythm. ABDOMEN: Moderate tenderness to minimal palpation in the upper abdominal area. No rebound. Positi ve bowel sounds. Abdomen is soft, nondistended. LABORATORY DATA: White blood cell count 9.4, hemoglobin 10.1, hematocrit 33.0, platelets 407. Sodi um 142, potassium 4.5, chloride 101, bicarbonate 30, BUN of 4, creatinine 0.85, magnesium 1.8, calci um 9.5, glucose 97. ASSESSMENT AND PLAN: 1. Abdominal pain. Patient is status post upper endoscopy and findings of reflux esophagitis and c hronic gastritis with normal gastric emptying. The patient continues to have significant abdominal pain, nausea and decreased oral intake. We will continue with current medications and advance diet. 2. Post-laminectomy syndrome, vertebral compression fracture. Back pain is stable, but persistent. If the patient is able to tolerate p.o. better tomorrow, we will restart her OxyContin, which may improve her overall pain control. 3. Hypomagnesemia, improved. We will continue to monitor, especially in light of patient's poor ap petite and diet. 4. Anemia. Stable. Continue to monitor. Dictated By: PRICILA BRONSON MD, SR/GLORIA Conf#: [id number] DID#: [id number]
[2017-10-15] MEDS: HYDROmorphONE 1 MG/ML SYG IV PRN ×11 (00:43→21:55)
[2017-10-15] MEDS: ONDANSETRON 4 MG INJ IV PRN ×5 (00:47→23:21)
[2017-10-15] MEDS: D5W-0.45 NACL + KCL 20 MEQ 1,000 ML IV SCH ×3 (00:48→18:34)
[2017-10-15 03:04] VITALS: BP 136/71; RESP 16
[2017-10-15] MEDS: PANTOPRAZOLE (EC) 40 MG TAB PO SCH ×2 (07:01→17:31)
[2017-10-15] MEDS: METOCLOPRAMIDE 10 MG INJ IV PRN ×3 (07:07→19:37)
[2017-10-15 08:00] VITALS: BP 130/78; RESP 17
[2017-10-15] MEDS: ESCITALOPRAM 10 MG TAB PO SCH (09:21)
[2017-10-15 14:00] VITALS: BP 144/88; RESP 19
[2017-10-15 20:31] VITALS: BP 153/89; RESP 18
[2017-10-15] MEDS: DIAZEPAM 5 MG TAB PO PRN (21:18)
--- NOTE | 2017-10-16 00:18 | PN ---
DATE: 10/15/2017 MEDICAL PROGRESS NOTE SUBJECTIVE: The patient complains of significant nausea, vomiting and abdominal pain and no improve ment since yesterday. OBJECTIVE: VITAL SIGNS: Temperature 99.2 max, blood pressure 153/89, respirations 18, pulse is 84. Oxygen sat uration 97% on room air. LUNGS: Clear to auscultation bilaterally. HEART: Regular rate and rhythm. ABDOMEN: Soft, nondistended, moderate tenderness to mild palpation, especially in the epigastrium a nd upper abdominal area. EXTREMITIES: No cyanosis, clubbing or edema. ASSESSMENT AND PLAN: 1. Abdominal pain. Patient seems to be worse compared to yesterday with more nausea and vomiting a s compared to yesterday. We will change around the Reglan to q.a.c. and bedtime on a regular schedu led basis to see if this improves the patient's symptoms, and then we can advance her diet. We will continue with proton pump inhibitor as well as the Carafate. 2. Post-laminectomy, syndrome/vertebral compression fracture/back pain, stable, but persistent. Co ntinue with p.r.n. Dilaudid and hopefully tomorrow can restart her OxyContin. 3. Hypomagnesemia, stable. We will recheck in the morning and replace as needed. 4. Anemia. Stable. We will recheck in the morning to see if patient needs any further transfusion . Dictated By: PRICILA BRONSON MD, SR/GLORIA Conf#: [id number] DID#: [id number]
[2017-10-16] MEDS: HYDROmorphONE 1 MG/ML SYG IV PRN ×11 (02:21→22:58)
[2017-10-16] MEDS: METOCLOPRAMIDE 10 MG INJ IV PRN (02:21)
[2017-10-16] MEDS: D5W-0.45 NACL + KCL 20 MEQ 1,000 ML IV SCH ×3 (02:24→17:05)
[2017-10-16 02:39] VITALS: BP 132/78; RESP 16
[2017-10-16] MEDS: ONDANSETRON 4 MG INJ IV PRN ×2 (06:10→14:17)
[2017-10-16] MEDS: PANTOPRAZOLE (EC) 40 MG TAB PO SCH ×2 (06:29→17:05)
[2017-10-16 06:48] LABS: ABNORMAL IP MESSAGE 1; BASOPHILS % 0.4 % (0.0-2.0); EOSINOPHILS # 0.2 10^3/ul (0.0-0.5); EOSINOPHILS % 3.1 % (0.0-7.0); HEMATOCRIT 36.4 % (37.0-47.0); HEMOGLOBIN 10.9 g/dl (12.0-16.0); LYMPHOCYTES # 2.2 10^3/ul (0.8-2.9); LYMPHOCYTES % 30.7 % (15.0-51.0); MEAN CORPUSCULAR HGB CONC 29.9 g/dl (32.0-37.0); MEAN PLATELET VOLUME 9.4 fl (7.4-10.4); MONOCYTE # 0.7 10^3/ul (0.3-0.9); MONOCYTES % 9.8 % (0.0-11.0); NEUTROPHIL # 3.9 10^3/ul (1.6-7.5); NEUTROPHILS % 55.7 % (39.0-77.0); PLATELET COUNT 388 10^3/UL (140-415); RED BLOOD COUNT 4.73 10^6/ul (4.20-5.40); RED CELL DISTRIBUTION WIDTH 23.2 % (11.5-14.5)
[2017-10-16 06:57] LABS: POSITIVE DIFF @See below
[2017-10-16 07:32] VITALS: BP 113/70; RESP 18
[2017-10-16 08:04] LABS: CALCIUM 9.9 mg/dl (8.4-10.2); CREATININE 0.98 mg/dl (0.44-1.00); MAGNESIUM 1.8 mg/dl (1.7-2.5); POTASSIUM 5.2 mmol/L (3.5-5.1)
--- NOTE | 2017-10-16 08:10 | PN ---
DATE: 10/16/2017 SUBJECTIVE: The patient complains of moderate to severe abdominal pain as well as back pain with so me nausea this morning. The patient was vomiting small amounts over the last couple hours. OBJECTIVE: VITAL SIGNS: Temperature 98.4, blood pressure 113/70, respirations 18, pulse of 80, oxygen saturati on 99% on room air. GENERAL: Well-developed, thin female in no acute distress, lying in bed. CHEST: Clear to auscultation bilaterally. HEART: Regular rate and rhythm. ABDOMEN: Soft, nondistended, positive bowel sounds. Moderate tenderness in the upper abdomen to mi nimal palpation. EXTREMITIES: No cyanosis, clubbing or edema. NEUROLOGIC: Nonfocal. LABORATORY DATA: Chemistry is pending. Hemoglobin of 10.9, hematocrit of 36.4, platelets of 388, w josue blood cell count 7.0. ASSESSMENT AND PLAN: 1. Abdominal pain. The patient continues to have moderate to severe abdominal pain despite medicat ions. The patient with reflux esophagitis, gastritis on endoscopy. We will continue with current m edications. Patient will receive Reglan prior to meals today to see if it improves her nausea and a bility to tolerate p.o. We will advance diet if this is of benefit. 2. Anemia, stable after transfusion. Continue to monitor. 3. Hypomagnesemia. We will await results of blood test, but replace as needed. 4. Post-laminectomy syndrome, low back pain, vertebral fracture. Patient with moderate to severe b ack pain still. We will continue with p.r.n. medications and await the patient's ability to tolerat e oral medications better and restart her OxyContin when this is possible. Dictated By: PRICILA BRONSON MD, SR/GLORIA Conf#: [id number] DID#: [id number]
[2017-10-16] MEDS: ESCITALOPRAM 10 MG TAB PO SCH (08:19)
[2017-10-16] MEDS: METOCLOPRAMIDE 10 MG INJ IV SCH ×4 (08:19→20:30)
[2017-10-16 14:57] VITALS: BP 133/78; RESP 18
[2017-10-16] MEDS: DEXTROSE 5%-0.45% NACL 1,000 ML IV SCH (18:49)
[2017-10-16 20:00] VITALS: BP 159/94; RESP 19
[2017-10-17] MEDS: HYDROmorphONE 1 MG/ML SYG IV PRN ×11 (01:17→22:47)
[2017-10-17] MEDS: ONDANSETRON 4 MG INJ IV PRN ×2 (01:17→14:15)
[2017-10-17 02:00] VITALS: BP 137/84; RESP 18
[2017-10-17] MEDS: DIAZEPAM 5 MG TAB PO PRN ×2 (02:55→21:12)
[2017-10-17] MEDS: DEXTROSE 5%-0.45% NACL 1,000 ML IV SCH ×4 (02:58→19:59)
[2017-10-17] MEDS: PANTOPRAZOLE (EC) 40 MG TAB PO SCH ×2 (06:11→17:41)
[2017-10-17 06:44] LABS: ABNORMAL IP MESSAGE 1; BASOPHILS % 0.7 % (0.0-2.0); EOSINOPHILS # 0.2 10^3/ul (0.0-0.5); EOSINOPHILS % 3.4 % (0.0-7.0); HEMATOCRIT 34.2 % (37.0-47.0); HEMOGLOBIN 10.2 g/dl (12.0-16.0); LYMPHOCYTES # 1.8 10^3/ul (0.8-2.9); LYMPHOCYTES % 30.7 % (15.0-51.0); MEAN CORPUSCULAR HEMOGLOBIN 23.1 pg (29.0-33.0); MEAN CORPUSCULAR HGB CONC 29.8 g/dl (32.0-37.0); MEAN CORPUSCULAR VOLUME 77.4 fl (82.0-101.0); MONOCYTE # 0.6 10^3/ul (0.3-0.9); MONOCYTES % 9.5 % (0.0-11.0); NEUTROPHIL # 3.3 10^3/ul (1.6-7.5); NEUTROPHILS % 55.5 % (39.0-77.0); PLATELET COUNT 347 10^3/UL (140-415); RED BLOOD COUNT 4.42 10^6/ul (4.20-5.40); RED CELL DISTRIBUTION WIDTH 22.8 % (11.5-14.5); WHITE BLOOD COUNT 5.9 10^3/ul (4.8-10.8)
[2017-10-17 07:02] LABS: POSITIVE DIFF @See below
[2017-10-17 07:24] LABS: CALCIUM 9.3 mg/dl (8.4-10.2); CREATININE 0.88 mg/dl (0.44-1.00); MAGNESIUM 1.8 mg/dl (1.7-2.5)
[2017-10-17] MEDS: METOCLOPRAMIDE 10 MG INJ IV SCH ×4 (08:06→20:02)
[2017-10-17 08:15] VITALS: BP 128/71; PULSE 80; RESP 18
--- NOTE | 2017-10-17 08:21 | PN ---
DATE: 10/17/2017 SUBJECTIVE: The patient continues to have significant nausea and abdominal pain as well as back chan n. Difficulty tolerating oral nutrition. OBJECTIVE: VITAL SIGNS: Temperature 98.2, pulse 71, respirations 18, blood pressure 137/84. Oxygen saturation 97% on room air. GENERAL: Well-developed, thin female in mild distress, lying in bed. LUNGS: Clear to auscultation bilaterally. HEART: Regular rate and rhythm. ABDOMEN: Soft, nondistended, moderate epigastric and upper abdominal tenderness to mild palpation. Normoactive bowel sounds. NEUROLOGIC: Nonfocal. LABORATORY DATA: Sodium 142, potassium 4.0, chloride 101, bicarbonate 34, BUN of 8, creatinine 0.88 , blood sugar 86, calcium 9.3. Magnesium 1.8. Hemoglobin of 10.2, hematocrit of 34.2, white blood cell count 5.9, platelets 347. ASSESSMENT AND PLAN: 1. Abdominal pain. Patient continues to have moderate to severe abdominal pain with nausea and dif ficulty tolerating advancing diet. Unclear to exact etiology of her pain. This pain seems to be ou t of proportion to findings on colonoscopy and upper endoscopy. Patient did have gastritis and esop hagitis and we will continue to advance medications as well as diet in hopes to improve her conditio n. We will continue with p.r.n. analgesics as well. 2. Post-laminectomy, syndrome/vertebral compression fracture/back pain. Continuing moderate to sev ere back pain. Patient has a new compression fracture at T12, likely contributing to her pain and w hether or not it is contributing to some of her abdominal pain as well. We will continue with curre nt medications and we will add Gabapentin as well to see if things improve 3. Anemia. Stable after transfusion, no need for further transfusion. 4. Anxiety and depression, stable. Continue with patient's medications. Dictated By: PRICILA BRONSON MD, SR/GLORIA Conf#: [id number] DID#: [id number]
[2017-10-17] MEDS: ESCITALOPRAM 10 MG TAB PO SCH (08:42)
[2017-10-17] MEDS: GABAPENTIN 100 MG CAP PO SCH ×4 (08:43→20:01)
[2017-10-17 20:29] VITALS: BP 132/80; RESP 18
[2017-10-18] MEDS: HYDROmorphONE 1 MG/ML SYG IV PRN ×11 (00:59→23:47)
[2017-10-18 02:08] VITALS: BP 122/56; RESP 18
[2017-10-18] MEDS: PANTOPRAZOLE (EC) 40 MG TAB PO SCH ×2 (05:22→18:46)
[2017-10-18] MEDS: ONDANSETRON 4 MG INJ IV PRN ×3 (05:27→14:15)
[2017-10-18] MEDS: DEXTROSE 5%-0.45% NACL 1,000 ML IV SCH ×2 (05:27→14:27)
[2017-10-18 05:55] LABS: CALCIUM 9.1 mg/dl (8.4-10.2); CREATININE 0.88 mg/dl (0.44-1.00); MAGNESIUM 1.8 mg/dl (1.7-2.5); POTASSIUM 4.6 mmol/L (3.5-5.1)
[2017-10-18 07:35] VITALS: BP 136/92; RESP 18
[2017-10-18] MEDS: METOCLOPRAMIDE 10 MG INJ IV SCH ×4 (07:49→20:22)
--- NOTE | 2017-10-18 09:01 | PN ---
DATE: 10/18/2017 SUBJECTIVE: The patient continues to have moderate to severe abdominal pain and back pain. The pat ient did report that the Neurontin helped her leg pain though. The patient continues to have nausea and vomiting. OBJECTIVE: VITAL SIGNS: Temperature 97.4, pulse 59, respirations 18, blood pressure 122/56, oxygen saturation 95% on room air. GENERAL: Well-developed, thin female in mild distress secondary to pain, lying in bed. LUNGS: Clear to auscultation bilaterally. HEART: Regular rate and rhythm. ABDOMEN: Moderate epigastric upper abdominal tenderness to mild palpation. Normoactive bowel sound s, nondistended, soft. NEUROLOGIC: Nonfocal. LABORATORY DATA: Sodium 142, potassium 4.6, chloride 101, bicarbonate 33, BUN of 6, creatinine 0.88 , blood sugar of 104, calcium 9.1, magnesium 1.8. ASSESSMENT AND PLAN: 1. Abdominal pain. Patient with gastritis, reflux esophagitis but continues to have ongoing signif icant abdominal pain as well as nausea and vomiting and minimally response to medications. The jessica ent has improved since admission, but continues to have significant nausea and vomiting with intoler ance to oral nutrition. We will add Zantac to patient's current regimen and see if this can help al zev with the Carafate and the Protonix. Hopefully we can advance diet. 2. Post-laminectomy syndrome/vertebral compression fracture/back pain, improved slightly with admit ting the gabapentin. We will continue with this as well as p.r.n. Dilaudid. 3. Anemia, stable. There is no need for further transfusion. We will continue to monitor periodic ally. Dictated By: PRICILA BRONSON MD, SR/NTS Conf#: [id number] DID#: [id number]
[2017-10-18] MEDS: GABAPENTIN 100 MG CAP PO SCH ×3 (09:43→20:22)
[2017-10-18] MEDS: RANITIDINE 150 MG TAB PO SCH ×2 (09:43→20:22)
[2017-10-18] MEDS: ESCITALOPRAM 10 MG TAB PO SCH (09:43)
[2017-10-18 15:14] VITALS: BP 119/69; RESP 18
[2017-10-18 20:42] VITALS: BP 129/85; RESP 19
[2017-10-18] MEDS: DIAZEPAM 5 MG TAB PO PRN (22:03)
[2017-10-19] MEDS: ONDANSETRON 4 MG INJ IV PRN ×4 (00:08→19:27)
[2017-10-19] MEDS: DEXTROSE 5%-0.45% NACL 1,000 ML IV SCH ×3 (01:05→19:27)
[2017-10-19 02:06] VITALS: BP 123/72; RESP 18
[2017-10-19] MEDS: HYDROmorphONE 1 MG/ML SYG IV PRN ×10 (02:18→21:46)
[2017-10-19] MEDS: PANTOPRAZOLE (EC) 40 MG TAB PO SCH ×2 (05:14→17:08)
[2017-10-19 06:11] LABS: CALCIUM 8.8 mg/dl (8.4-10.2); CREATININE 0.81 mg/dl (0.44-1.00); MAGNESIUM 1.7 mg/dl (1.7-2.5); POTASSIUM 3.7 mmol/L (3.5-5.1)
[2017-10-19 07:29] VITALS: BP 124/66; RESP 18
[2017-10-19] MEDS: ESCITALOPRAM 10 MG TAB PO SCH (08:02)
[2017-10-19] MEDS: GABAPENTIN 100 MG CAP PO SCH ×3 (08:02→20:21)
[2017-10-19] MEDS: METOCLOPRAMIDE 10 MG INJ IV SCH ×4 (08:02→20:20)
[2017-10-19] MEDS: RANITIDINE 150 MG TAB PO SCH ×2 (08:02→20:21)
--- NOTE | 2017-10-19 12:56 | PN ---
Date/Time of Note Date/Time of Note DATE: 10/19/17 TIME: 12:51 Assessment/Plan VTE Prophylaxis VTE Prophylaxis Intervention: contraindicated Lines/Catheters IV Catheter Type (from Nrs): Peripheral IV Urinary Cath still in place: No Assessment/Plan Problems: (1) Abdominal pain Status: Acute Comment: Gastritis already treated with Zantac and protonix . Will try librax for possible IBS. (2) Anemia, iron deficiency Status: Acute Comment: improved after transfusion. Patient told to stay away from Advil and Aleve and NSAIDS. Use Tylenol for back pain. (3) Gastritis Status: Acute Comment: on PPI and ranitidine. (4) Diverticula of colon Status: Chronic (5) Colon polyp Status: Chronic (6) Depression Status: Chronic (7) Compression fracture of body of thoracic vertebra Status: Acute Comment: previous history of T7, T8 fracture . Will discuss with Dr. Grimm regarding osteoporosis treatment. Subjective 24 Hr Interval Summary Free Text/Dictation Patient still has abdominal pain and poor appetite. Exam/Review of Systems Vital Signs Vitals Vital Signs Date Time Temp Pulse Resp B/P Pulse Ox O2 Delivery O2 Flow Rate FiO2 10/19/17 07:29 97.9 73 18 124/66 98 10/17/17 08:15 Room Air Intake and Output 10/18/17 10/18/17 10/19/17 15:00 23:00 07:00 Intake Total 1000 ml 1540 ml 1400 ml Output Total 2000 ml 1200 ml Balance 1000 ml -460 ml 200 ml Exam Constitutional: alert, oriented Head: atraumatic, normocephalic Neck: non-tender, supple Respiratory: clear to auscultation Cardiovascular: regular rate and rhythm Gastrointestinal: soft, tender Results Result Diagram: 10/17/17 0555 10/19/17 0458 Results 24 hrs Laboratory Tests Test 10/19/17 04:58 Sodium Level 144 Potassium Level 3.7 Chloride Level 102 Carbon Dioxide Level 33 H Anion Gap 13 Blood Urea Nitrogen 4 L Creatinine 0.81 Glucose Level 97 Calcium Level 8.8 Magnesium Level 1.7 Medications Medications Current Medications Ondansetron HCl (Zofran Inj) 4 mg Q4H PRN IV NAUSEA AND/OR VOMITING Last administered on 10/19/17t 05:04; Admin Dose 4 MG; Start 10/09/17 at 13:00 Acetaminophen (Tylenol Tab) 650 mg Q6H PRN PO PAIN AND OR ELEVATED TEMP Last administered on 10/12/17 06:11; Admin Dose 650 MG; Start 10/09/17 at 13:00 Diazepam (Valium) 10 mg HS PRN PO insomnia Last administered on 10/18/17 22: 03; Admin Dose 10 MG; Start 10/09/17 at 13:00 Clonidine (Catapres) 0.1 mg Q6H PRN PO ELEVATED BLOOD PRESSURE Last administered on 10/12/17 05:07; Admin Dose 0.1 MG; Start 10/09/17 at 15:30 Escitalopram Oxalate (Lexapro) 10 mg DAILY PO Last administered on 10/19/17 08:02; Admin Dose 10 MG; Start 10/10/17 at 09:00 Pantoprazole (Protonix Tab) 40 mg BID@06,18 PO Last administered on 10/19/17 05:14; Admin Dose 40 MG; Start 10/11/17 at 18:00 Hydromorphone HCl 1 mg 1 mg Q2 PRN IV PAIN LEVEL 6-10 Last administered on 10:57; Admin Dose 1 MG; Start 10/12/17 at 21:00 Dextrose/Sodium Chloride (D5-1/2ns) 1,000 ml @ 125 mls/hr Q8H IV Last administered on 10/19/17 10:19; Admin Dose 125 MLS/HR; Start 10/16/17 at 18: 30 Gabapentin (Neurontin) 200 mg TID PO Last administered on 10/19/17 12:01; Admin Dose 200 MG; Start 10/17/17 at 09:00 Ranitidine HCl (Zantac) 150 mg BID PO Last administered on 10/19/17 08:02; Admin Dose 150 MG; Start 10/18/17 at 09:00 BEAU HAMILTON MD Oct 19, 2017 12:56
[2017-10-19 14:25] VITALS: BP 112/72; RESP 18
[2017-10-19] MEDS: CHLORDIAZEPOXIDE/CLIDINIUM CAP PO SCH ×2 (17:55→20:25)
[2017-10-19 20:00] VITALS: BP 127/74; RESP 19
[2017-10-19] MEDS: DIAZEPAM 5 MG TAB PO PRN (22:56)
[2017-10-20] MEDS: HYDROmorphONE 1 MG/ML SYG IV PRN ×11 (00:46→22:16)
[2017-10-20] MEDS: ONDANSETRON 4 MG INJ IV PRN ×3 (00:50→20:11)
[2017-10-20 02:00] VITALS: BP 125/76; RESP 17
[2017-10-20] MEDS: DEXTROSE 5%-0.45% NACL 1,000 ML IV SCH ×4 (05:54→22:16)
[2017-10-20] MEDS: PANTOPRAZOLE (EC) 40 MG TAB PO SCH ×2 (05:55→17:08)
[2017-10-20] MEDS: CHLORDIAZEPOXIDE/CLIDINIUM CAP PO SCH ×4 (07:57→20:12)
[2017-10-20] MEDS: METOCLOPRAMIDE 10 MG INJ IV SCH ×2 (07:57→11:49)
[2017-10-20] MEDS: GABAPENTIN 100 MG CAP PO SCH ×3 (08:03→20:12)
[2017-10-20] MEDS: RANITIDINE 150 MG TAB PO SCH ×2 (08:03→20:12)
[2017-10-20] MEDS: ESCITALOPRAM 10 MG TAB PO SCH (08:03)
[2017-10-20 08:13] VITALS: BP 136/77; RESP 18
--- NOTE | 2017-10-20 12:42 | PN ---
Date/Time of Note Date/Time of Note DATE: 10/20/17 TIME: 12:42 Assessment/Plan VTE Prophylaxis VTE Prophylaxis Intervention: contraindicated Lines/Catheters IV Catheter Type (from Nrs): Peripheral IV Urinary Cath still in place: No Assessment/Plan Assessment/Plan (1) Abdominal pain Status: Acute Comment: Gastritis already treated with Zantac and protonix . Still has pain despite librax requiring dilaudid q 2hr. Will try tomorrow if pain persist. (2) Nausea/ vomiting Status: Acute Comment: may be due to gastritis or IBS . Already on reglan but at 5mg , will increase to 10mg. (3) Gastritis Status: Acute Comment: on PPI and ranitidine but still has pain. Add carafate for 1 month. (4) Diverticula of colon Status: Chronic (5) Colon polyp Status: Chronic (6) Depression Status: Chronic (7) Thoracic and lumbar degenerative disc disease. Status: Acute on Chronic Continue pain meds for now. Subjective 24 Hr Interval Summary Free Text/Dictation Patient still has persistent abd pain. Vomits during or after meals. Has only received 2 doses of librax. Exam/Review of Systems Vital Signs Vitals Vital Signs Date Time Temp Pulse Resp B/P Pulse Ox O2 Delivery O2 Flow Rate FiO2 10/20/17 08:13 98.3 71 18 136/77 94 10/17/17 08:15 Room Air Intake and Output 10/19/17 10/19/17 10/20/17 15:00 23:00 07:00 Intake Total 2760 ml 1240 ml Output Total 3000 ml Balance -240 ml 1240 ml Exam Constitutional: alert, oriented Head: atraumatic, normocephalic Eyes: nl conjunctiva, nl sclera ENMT: nl external ears & nose Respiratory: clear to auscultation, normal air movement Cardiovascular: regular rate and rhythm Gastrointestinal: soft, tender Musculoskeletal: nl extremities to inspection Results Result Diagram: 10/17/17 0555 10/19/17 0458 Medications Medications Current Medications Ondansetron HCl (Zofran Inj) 4 mg Q4H PRN IV NAUSEA AND/OR VOMITING Last administered on 10/20/17t 00:50; Admin Dose 4 MG; Start 10/09/17 at 13:00 Acetaminophen (Tylenol Tab) 650 mg Q6H PRN PO PAIN AND OR ELEVATED TEMP Last administered on 10/12/17 06:11; Admin Dose 650 MG; Start 10/09/17 at 13:00 Diazepam (Valium) 10 mg HS PRN PO insomnia Last administered on 10/19/17 22: 56; Admin Dose 10 MG; Start 10/09/17 at 13:00 Clonidine (Catapres) 0.1 mg Q6H PRN PO ELEVATED BLOOD PRESSURE Last administered on 10/12/17 05:07; Admin Dose 0.1 MG; Start 10/09/17 at 15:30 Escitalopram Oxalate (Lexapro) 10 mg DAILY PO Last administered on 10/20/17 08:03; Admin Dose 10 MG; Start 10/10/17 at 09:00 Pantoprazole (Protonix Tab) 40 mg BID@06,18 PO Last administered on 10/20/17 05:55; Admin Dose 40 MG; Start 10/11/17 at 18:00 Hydromorphone HCl 1 mg 1 mg Q2 PRN IV PAIN LEVEL 6-10 Last administered on 11:49; Admin Dose 1 MG; Start 10/12/17 at 21:00 Dextrose/Sodium Chloride (D5-1/2ns) 1,000 ml @ 125 mls/hr Q8H IV Last administered on 10/20/17 05:54; Admin Dose 125 MLS/HR; Start 10/16/17 at 18: 30 Gabapentin (Neurontin) 200 mg TID PO Last administered on 10/20/17 08:03; Admin Dose 200 MG; Start 10/17/17 at 09:00 Ranitidine HCl (Zantac) 150 mg BID PO Last administered on 10/20/17 08:03; Admin Dose 150 MG; Start 10/18/17 at 09:00 BEAU HAMILTON MD Oct 20, 2017 12:42
[2017-10-20 14:54] VITALS: BP 125/75; RESP 18
[2017-10-20] MEDS: METOCLOPRAMIDE 10 MG TAB PO SCH (17:08)
[2017-10-20] MEDS: SUCRALFATE 1 GM TAB PO SCH ×2 (17:08→20:12)
[2017-10-20 20:32] VITALS: BP 123/74; RESP 19
[2017-10-20] MEDS: DIAZEPAM 5 MG TAB PO PRN (22:55)
[2017-10-21] MEDS: HYDROmorphONE 1 MG/ML SYG IV PRN ×10 (02:10→20:30)
[2017-10-21] MEDS: ONDANSETRON 4 MG INJ IV PRN ×4 (02:13→18:33)
[2017-10-21] MEDS: ACETAMINOPHEN 325 MG TAB PO PRN ×2 (02:17→13:31)
[2017-10-21 02:26] VITALS: BP 120/66; RESP 18
[2017-10-21 05:41] LABS: ABNORMAL IP MESSAGE 1; HEMATOCRIT 32.5 % (37.0-47.0); HEMOGLOBIN 9.4 g/dl (12.0-16.0); MEAN CORPUSCULAR HGB CONC 28.9 g/dl (32.0-37.0); MEAN CORPUSCULAR VOLUME 79.5 fl (82.0-101.0); PLATELET COUNT 310 10^3/UL (140-415); RED BLOOD COUNT 4.09 10^6/ul (4.20-5.40); RED CELL DISTRIBUTION WIDTH 23.2 % (11.5-14.5); WHITE BLOOD COUNT 6.6 10^3/ul (4.8-10.8)
[2017-10-21 05:44] LABS: POSITIVE DIFF @See below
[2017-10-21 05:58] LABS: ALBUMIN 3.4 g/dl (3.3-4.9); ALBUMIN/GLOBULIN RATIO 1.13; BILIRUBIN,INDIRECT 0.1 mg/dl (0-1.1); BILIRUBIN,TOTAL 0.1 mg/dl (0.2-1.3); CALCIUM 9.2 mg/dl (8.4-10.2); CREATININE 0.9 mg/dl (0.44-1.00); POTASSIUM 3.9 mmol/L (3.5-5.1); TOTAL PROTEIN 6.4 g/dl (6.1-8.1)
[2017-10-21] MEDS: PANTOPRAZOLE (EC) 40 MG TAB PO SCH ×2 (06:34→17:04)
[2017-10-21] MEDS: DEXTROSE 5%-0.45% NACL 1,000 ML IV SCH ×2 (06:42→18:28)
[2017-10-21 08:00] VITALS: BP 131/82; RESP 16
[2017-10-21] MEDS: SUCRALFATE 1 GM TAB PO SCH ×4 (08:29→20:29)
[2017-10-21] MEDS: CHLORDIAZEPOXIDE/CLIDINIUM CAP PO SCH ×4 (08:29→20:29)
[2017-10-21] MEDS: ESCITALOPRAM 10 MG TAB PO SCH (08:30)
[2017-10-21] MEDS: GABAPENTIN 100 MG CAP PO SCH ×3 (08:30→20:29)
[2017-10-21] MEDS: RANITIDINE 150 MG TAB PO SCH ×2 (08:30→20:29)
[2017-10-21] MEDS: METOCLOPRAMIDE 10 MG TAB PO SCH ×3 (08:37→17:04)
[2017-10-21 09:18] LABS: ANISOCYTOSIS 2+ (0-0); EOSINOPHILS % (M) 5 % (0-7); GIANT THROMBO% (M) 1 % (0-0); HYPOCHROMASIA 2+ (0-0); MICROCYTOSIS 1+ (0-0); MONOCYTES % (M) 4 % (0-11); PLATELET ESTIMATE NORMAL; POLYCHROMASIA 3+ (0-0)
--- NOTE | 2017-10-21 13:32 | PN ---
Date/Time of Note Date/Time of Note DATE: 10/21/17 TIME: 13:30 Assessment/Plan VTE Prophylaxis VTE Prophylaxis Intervention: contraindicated Lines/Catheters IV Catheter Type (from Nrs): Peripheral IV Urinary Cath still in place: No Assessment/Plan Problems: (1) Constipation Status: Acute Comment: May be due to dilaudid or to low oral intake but she normally does not have constipation on oxycodone. Patient agreeable to one dose of ducolax and then regular stool softener. (2) Back pain Status: Chronic Comment: Plan to change dilaudid IV to oral oxycodone once GI symptoms improve and patient can tolerate po meds better. (3) Nausea & vomiting Status: Acute Comment: improving on higher dose of reglan. (4) Abdominal pain Status: Acute Comment: improving on carafate , protonix, zantac, and librax. (5) Gastritis Status: Acute Comment: Continue carafate , protonix, zantac. (6) Anemia Status: Acute Comment: Probably due to gastritis. Since her iron was very low and she has trouble tolerate po intake. Will give IV iron to replenish iron storage. Qualifiers: Anemia type: iron deficiency Subjective 24 Hr Interval Summary Free Text/Dictation Patient reports that she was able to tolerate and keep down breakfast this morning but the lunch was 2 ascitic with tomato sauce and pineapple and she could not keep that. Has not had bowel movement for several days but does not feel particularly constipated. Abdominal pain and back pain is controlled on Dilaudid. Exam/Review of Systems Vital Signs Vitals Vital Signs Date Time Temp Pulse Resp B/P Pulse Ox O2 Delivery O2 Flow Rate FiO2 10/21/17 08:00 98.2 68 16 131/82 97 10/17/17 08:15 Room Air Intake and Output 10/20/17 10/20/17 10/21/17 15:00 23:00 07:00 Intake Total 1000 ml 1680 ml 1450 ml Output Total 2000 ml 900 ml Balance 1000 ml -320 ml 550 ml Exam Constitutional: alert, oriented Head: atraumatic, normocephalic Respiratory: clear to auscultation, normal air movement Cardiovascular: nl pulses, regular rate and rhythm Gastrointestinal: soft, tender (in the epigastric and left side of abdomen) Musculoskeletal: nl extremities to inspection Extremities: normal pulses Results Result Diagram: 10/21/17 0443 10/21/17 0443 Results 24 hrs Laboratory Tests Test 10/21/17 04:43 White Blood Count 6.6 Red Blood Count 4.09 L Hemoglobin 9.4 L Hematocrit 32.5 L Mean Corpuscular Volume 79.5 L Mean Corpuscular Hemoglobin 23.0 L Mean Corpuscular Hemoglobin Concent 28.9 L Red Cell Distribution Width 23.2 H Platelet Count 310 Mean Platelet Volume 10.0 Neutrophils % Segmented Neutrophils % (Manual) 57 Band Neutrophils % (Manual) 1 Lymphocytes % Lymphocytes % (Manual) 33 Monocytes % Monocytes % (Manual) 4 Eosinophils % Eosinophils % (Manual) 5 Basophils % Nucleated Red Blood Cells % 0.0 Neutrophils # Neutrophils # (Manual) 3.8 Band Neutrophils # 0.0 Absolute Lymphocytes (Manual) 2.1 Lymphocytes # Monocytes # Absolute Monocytes (Manual) 0.2 L Eosinophils # Basophils # Nucleated Red Blood Cells # Platelet Estimate NORMAL Giant Platelets 1 H Polychromasia 3+ Hypochromasia 2+ Anisocytosis 2+ Microcytosis 1+ Macrocytosis 1+ Sodium Level 146 H Potassium Level 3.9 Chloride Level 102 Carbon Dioxide Level 35 H Anion Gap 13 Blood Urea Nitrogen 3 L Creatinine 0.90 Glucose Level 90 Calcium Level 9.2 Total Bilirubin 0.1 L Direct Bilirubin 0.00 Indirect Bilirubin 0.1 Aspartate Amino Transf (AST/SGOT) 27 Alanine Aminotransferase (ALT/SGPT) 34 Alkaline Phosphatase 66 Total Protein 6.4 Albumin 3.4 Globulin 3.00 Albumin/Globulin Ratio 1.13 Amylase Level 55 Lipase 27 Medications Medications Current Medications Ondansetron HCl (Zofran Inj) 4 mg Q4H PRN IV NAUSEA AND/OR VOMITING Last administered on 10/21/17 06:34; Admin Dose 4 MG; Start 10/09/17 at 13:00 Acetaminophen (Tylenol Tab) 650 mg Q6H PRN PO PAIN AND OR ELEVATED TEMP Last administered on 10/21/17 02:17; Admin Dose 650 MG; Start 10/09/17 at 13:00 Diazepam (Valium) 10 mg HS PRN PO insomnia Last administered on 10/20/17 22: 55; Admin Dose 10 MG; Start 10/09/17 at 13:00 Clonidine (Catapres) 0.1 mg Q6H PRN PO ELEVATED BLOOD PRESSURE Last administered on 10/12/17 05:07; Admin Dose 0.1 MG; Start 10/09/17 at 15:30 Escitalopram Oxalate (Lexapro) 10 mg DAILY PO Last administered on 10/21/17 08:30; Admin Dose 10 MG; Start 10/10/17 at 09:00 Pantoprazole (Protonix Tab) 40 mg BID@06,18 PO Last administered on 10/21/17 06:34; Admin Dose 40 MG; Start 10/11/17 at 18:00 Hydromorphone HCl 1 mg 1 mg Q2 PRN IV PAIN LEVEL 6-10 Last administered on 12:26; Admin Dose 1 MG; Start 10/12/17 at 21:00 Dextrose/Sodium Chloride (D5-1/2ns) 1,000 ml @ 125 mls/hr Q8H IV Last administered on 10/21/17 06:42; Admin Dose 125 MLS/HR; Start 10/16/17 at 18: 30 Gabapentin (Neurontin) 200 mg TID PO Last administered on 10/21/17 12:26; Admin Dose 200 MG; Start 10/17/17 at 09:00 Ranitidine HCl (Zantac) 150 mg BID PO Last administered on 10/21/17 08:30; Admin Dose 150 MG; Start 10/18/17 at 09:00 Sucralfate (Carafate) 1 gm QID PO Last administered on 10/21/17 12:26; Admin Dose 1 GM; Start 10/20/17 at 17:00 BEAU HAMILTON MD Oct 21, 2017 13:32
[2017-10-21 14:00] VITALS: BP 140/76; RESP 16
[2017-10-21] MEDS ORDERED: BISACODYL (EC) 5 MG TAB PO ONE (15:00)
[2017-10-21] MEDS: SOD FERRIC GLUC COMPLX 125 MG in SOD CHLORIDE 0.9% 100 ML IVPB SCH (16:34)
[2017-10-21 20:00] VITALS: BP 135/80; RESP 20
[2017-10-21] MEDS: DOCUSATE SODIUM 100 MG CAP PO SCH (20:29)
[2017-10-21] MEDS: DIAZEPAM 5 MG TAB PO PRN (21:36)
[2017-10-22] MEDS: HYDROmorphONE 1 MG/ML SYG IV PRN ×11 (01:03→22:44)
[2017-10-22] MEDS: ONDANSETRON 4 MG INJ IV PRN ×6 (01:04→22:44)
[2017-10-22 02:00] VITALS: BP 125/79; RESP 20
[2017-10-22] MEDS: DEXTROSE 5%-0.45% NACL 1,000 ML IV SCH ×4 (02:30→23:29)
[2017-10-22] MEDS: PANTOPRAZOLE (EC) 40 MG TAB PO SCH ×2 (05:35→17:29)
[2017-10-22] MEDS: METOCLOPRAMIDE 10 MG TAB PO SCH ×3 (07:44→16:31)
[2017-10-22] MEDS: CHLORDIAZEPOXIDE/CLIDINIUM CAP PO SCH ×2 (07:44→11:02)
[2017-10-22 07:50] VITALS: BP 122/69; RESP 16
[2017-10-22] MEDS: ESCITALOPRAM 10 MG TAB PO SCH (08:32)
[2017-10-22] MEDS: RANITIDINE 150 MG TAB PO SCH ×2 (08:32→20:37)
[2017-10-22] MEDS: GABAPENTIN 100 MG CAP PO SCH ×3 (08:32→20:36)
[2017-10-22] MEDS: SUCRALFATE 1 GM TAB PO SCH ×4 (08:32→20:37)
[2017-10-22] MEDS: ACETAMINOPHEN 325 MG TAB PO PRN (09:23)
[2017-10-22 14:00] VITALS: BP 138/68; RESP 18
[2017-10-22] MEDS ORDERED: MAGNESIUM HYDROXIDE 30ML CUP PO ONE (15:00)
--- NOTE | 2017-10-22 15:24 | PN ---
Date/Time of Note Date/Time of Note DATE: 10/22/17 TIME: 15:13 Assessment/Plan VTE Prophylaxis VTE Prophylaxis Intervention: contraindicated Lines/Catheters IV Catheter Type (from Nrs): Peripheral IV Urinary Cath still in place: No Assessment/Plan Problems: (1) Constipation Status: Acute Comment: May be due to dilaudid since patient did not have history of constipation on oxycodone. Trial of milk of mag today. May need mag citrate if no bm tomorrow. (2) Abdominal pain Status: Acute Comment: on multiple meds for gastritis. Will also treat for possible ibs. Change librax to today. Resume oxycontin for pain control since dilaudid not adequate and may be causing constipation. (3) Gastritis Status: Acute Comment: On multiple meds . 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 Will give one GI cocktail today. (4) Back pain Status: Chronic (5) Nausea & vomiting Status: Acute Comment: has not been able to get reglan before meals due to scheduling issues. (6) Compression fracture of body of thoracic vertebra Status: Acute Comment: May be contributing to the abd pain. Resume oxycontin for chronic pain control. Subjective 24 Hr Interval Summary Free Text/Dictation Still has abdominal pain constantly , dilaudid wears off after 1 hour and a half. Still has no bm after dulcolax and stool softener. Back pain only bad when she gets out of bed. Still vomits after breakfast but has not been able to get reglan before meals due to scheduling issues. Exam/Review of Systems Vital Signs Vitals Vital Signs Date Time Temp Pulse Resp B/P Pulse Ox O2 Delivery O2 Flow Rate FiO2 10/22/17 14:00 98.2 92 18 138/68 96 Intake and Output 10/21/17 10/21/17 10/22/17 15:00 23:00 07:00 Intake Total 2310 ml 2310 ml Output Total 1600 ml 2200 ml Balance 710 ml 110 ml Exam Lying in bed, arousable. Constitutional: alert, oriented Head: atraumatic, normocephalic Respiratory: clear to auscultation, normal air movement Cardiovascular: regular rate and rhythm Gastrointestinal: nl liver, spleen, soft Extremities: normal pulses Results Result Diagram: 10/21/17 0443 10/21/17 044 Medications Medications Current Medications Ondansetron HCl (Zofran Inj) 4 mg Q4H PRN IV NAUSEA AND/OR VOMITING Last administered on 10/22/17 13:13; Admin Dose 4 MG; Start 10/09/17 at 13:00 Acetaminophen (Tylenol Tab) 650 mg Q6H PRN PO PAIN AND OR ELEVATED TEMP Last administered on 10/22/17 09:23; Admin Dose 650 MG; Start 10/09/17 at 13:00 Diazepam (Valium) 10 mg HS PRN PO insomnia Last administered on 10/21/17 21: 36; Admin Dose 10 MG; Start 10/09/17 at 13:00 Clonidine (Catapres) 0.1 mg Q6H PRN PO ELEVATED BLOOD PRESSURE Last administered on 10/12/17 05:07; Admin Dose 0.1 MG; Start 10/09/17 at 15:30 Escitalopram Oxalate (Lexapro) 10 mg DAILY PO Last administered on 10/22/17 08:32; Admin Dose 10 MG; Start 10/10/17 at 09:00 Pantoprazole (Protonix Tab) 40 mg BID@06,18 PO Last administered on 10/22/17 05:35; Admin Dose 40 MG; Start 10/11/17 at 18:00 Hydromorphone HCl 1 mg 1 mg Q2 PRN IV PAIN LEVEL 6-10 Last administered on 15:11; Admin Dose 1 MG; Start 10/12/17 at 21:00 Dextrose/Sodium Chloride (D5-1/2ns) 1,000 ml @ 125 mls/hr Q8H IV Last administered on 10/22/17 13:19; Admin Dose 125 MLS/HR; Start 10/16/17 at 18: 30 Gabapentin (Neurontin) 200 mg TID PO Last administered on 10/22/17 12:17; Admin Dose 200 MG; Start 10/17/17 at 09:00 Ranitidine HCl (Zantac) 150 mg BID PO Last administered on 10/22/17 08:32; Admin Dose 150 MG; Start 10/18/17 at 09:00 Sucralfate (Carafate) 1 gm QID PO Last administered on 10/22/17 12:17; Admin Dose 1 GM; Start 10/20/17 at 17:00 Docusate Sodium 200 mg 200 mg HS PO Last administered on 10/21/17 20:29; Admin Dose 200 MG; Start 10/21/17 at 21:00 Ferric Sodium Gluconate Complex/ Sodium Chloride (Ferrlecit/NS) 110 ml @ 100 mls/hr Q24H IVPB Last administered on 10/21/17 16:34; Admin Dose 100 MLS/HR; Start 10/21/17 at 17:00; Stop 10/23/17 at 18:05 BEAU HAMILTON MD Oct 22, 2017 15:24
[2017-10-22] MEDS ORDERED: LIDOCAINE/MYLANTA 40 ML BTL PO ONE (15:30)
[2017-10-22] MEDS: SOD FERRIC GLUC COMPLX 125 MG in SOD CHLORIDE 0.9% 100 ML IVPB SCH (16:31)
[2017-10-22] MEDS: BELLADONNA/PHENOBARBITAL TAB PO SCH ×2 (17:29→20:37)
[2017-10-22 19:36] VITALS: BP 128/90; RESP 16
[2017-10-22] MEDS: DOCUSATE SODIUM 100 MG CAP PO SCH (20:37)
[2017-10-22] MEDS: oxyCODONE (CR) 40 MG TAB [oxyCONTIN] PO SCH (20:37)
[2017-10-23] MEDS: HYDROmorphONE 1 MG/ML SYG IV PRN ×8 (00:53→19:15)
[2017-10-23 02:00] VITALS: BP 102/55; RESP 16
[2017-10-23] MEDS: DIAZEPAM 5 MG TAB PO PRN (02:00)
[2017-10-23] MEDS: ONDANSETRON 4 MG INJ IV PRN ×4 (04:54→16:58)
[2017-10-23] MEDS: PANTOPRAZOLE (EC) 40 MG TAB PO SCH ×2 (06:25→18:10)
[2017-10-23] MEDS: METOCLOPRAMIDE 10 MG TAB PO SCH ×3 (06:25→16:58)
[2017-10-23 06:42] LABS: ABNORMAL IP MESSAGE 1; BASOPHILS % 0.3 % (0.0-2.0); EOSINOPHILS # 0.2 10^3/ul (0.0-0.5); EOSINOPHILS % 2.6 % (0.0-7.0); HEMATOCRIT 29.5 % (37.0-47.0); HEMOGLOBIN 8.8 g/dl (12.0-16.0); LYMPHOCYTES # 1.4 10^3/ul (0.8-2.9); LYMPHOCYTES % 21.8 % (15.0-51.0); MEAN CORPUSCULAR HEMOGLOBIN 23.7 pg (29.0-33.0); MEAN CORPUSCULAR HGB CONC 29.8 g/dl (32.0-37.0); MEAN CORPUSCULAR VOLUME 79.3 fl (82.0-101.0); MEAN PLATELET VOLUME 9.9 fl (7.4-10.4); MONOCYTE # 0.5 10^3/ul (0.3-0.9); MONOCYTES % 8.7 % (0.0-11.0); NEUTROPHIL # 4.2 10^3/ul (1.6-7.5); NEUTROPHILS % 66.4 % (39.0-77.0); PLATELET COUNT 289 10^3/UL (140-415); RED BLOOD COUNT 3.72 10^6/ul (4.20-5.40); RED CELL DISTRIBUTION WIDTH 23.6 % (11.5-14.5); WHITE BLOOD COUNT 6.2 10^3/ul (4.8-10.8)
[2017-10-23 06:54] LABS: POSITIVE DIFF @See below
[2017-10-23 07:01] LABS: ALBUMIN 3.4 g/dl (3.3-4.9); ALBUMIN/GLOBULIN RATIO 1.3; CALCIUM 8.8 mg/dl (8.4-10.2); CREATININE 1.02 mg/dl (0.44-1.00); POTASSIUM 4.5 mmol/L (3.5-5.1)
[2017-10-23 08:04] VITALS: BP 102/61; RESP 18
--- NOTE | 2017-10-23 08:28 | PN ---
DATE: 10/23/2017 SUBJECTIVE: The patient continues to have significant nausea but did have a bowel movement last nig ht, still having significant back pain and abdominal pain and trouble tolerating her food. OBJECTIVE: VITAL SIGNS: Temperature 98.6, pulse of 77, blood pressure 102/55, respirations 16, oxygen saturati on 92% on room air. GENERAL: Well-developed, thin female in no acute distress, lying in bed. LUNGS: Clear to auscultation bilaterally. HEART: Regular rate and rhythm. ABDOMEN: Moderate tenderness in the epigastrium and upper abdominal area to mild palpation, nondist ended, soft. Normoactive bowel sounds. LABORATORY DATA: White blood cell count 6.2, hemoglobin 8.8, hematocrit 29.5, platelets 289. Sodiu m 145, potassium 4.5, chloride 100, bicarbonate 35, BUN of 5, creatinine 1.02, blood sugar 76, lipas e 17, amylase 45. ASSESSMENT AND PLAN: 1. Abdominal pain, nausea, vomiting, somewhat improved, but patient continues to have significant a bdominal pain tolerating very little oral intake. We will continue with current medications, but co nsider alternatives. We will try to advance diet and adjust regimen. 2. Post-laminectomy syndrome/vertebral compression fracture/back pain. The patient continues to alonso ve moderate to severe pain. OxyContin was re-added yesterday. We will continue to monitor this and see if pain control becomes better while on this. 3. Anemia remains stable. Continue to monitor. 4. Constipation, improved. We will continue to monitor and adjust medications. Dictated By: PRICILA BRONSON MD, SR/GLORIA Conf#: [id number] DID#: [id number]
[2017-10-23] MEDS: SUCRALFATE 1 GM TAB PO SCH ×4 (08:48→21:55)
[2017-10-23] MEDS: ESCITALOPRAM 10 MG TAB PO SCH (08:48)
[2017-10-23] MEDS: BELLADONNA/PHENOBARBITAL TAB PO SCH ×4 (08:48→21:54)
[2017-10-23] MEDS: oxyCODONE (CR) 40 MG TAB [oxyCONTIN] PO SCH ×2 (08:49→21:55)
[2017-10-23] MEDS: RANITIDINE 150 MG TAB PO SCH ×2 (08:49→21:55)
[2017-10-23] MEDS: GABAPENTIN 100 MG CAP PO SCH ×3 (08:49→21:55)
[2017-10-23] MEDS: DEXTROSE 5%-0.45% NACL 1,000 ML IV SCH ×3 (12:39→22:04)
[2017-10-23 14:00] VITALS: BP 110/64; RESP 18
[2017-10-23] MEDS: SOD FERRIC GLUC COMPLX 125 MG in SOD CHLORIDE 0.9% 100 ML IVPB SCH (16:57)
[2017-10-23 20:14] VITALS: BP 102/70; RESP 17
[2017-10-23] MEDS: DOCUSATE SODIUM 100 MG CAP PO SCH (21:54)
[2017-10-24] MEDS: ONDANSETRON 4 MG INJ IV PRN ×5 (02:39→22:11)
[2017-10-24] MEDS: HYDROmorphONE 1 MG/ML SYG IV PRN ×8 (02:39→22:11)
[2017-10-24 02:45] VITALS: BP 116/66; RESP 17
[2017-10-24 05:47] LABS: ABNORMAL IP MESSAGE 1; BASOPHILS % 0.3 % (0.0-2.0); EOSINOPHILS # 0.2 10^3/ul (0.0-0.5); EOSINOPHILS % 3.7 % (0.0-7.0); HEMATOCRIT 27.2 % (37.0-47.0); LYMPHOCYTES % 15.2 % (15.0-51.0); MEAN CORPUSCULAR HEMOGLOBIN 23.6 pg (29.0-33.0); MEAN CORPUSCULAR HGB CONC 29.4 g/dl (32.0-37.0); MEAN CORPUSCULAR VOLUME 80.2 fl (82.0-101.0); MEAN PLATELET VOLUME 9.8 fl (7.4-10.4); MONOCYTE # 0.6 10^3/ul (0.3-0.9); MONOCYTES % 9.3 % (0.0-11.0); NEUTROPHIL # 4.5 10^3/ul (1.6-7.5); NEUTROPHILS % 71.2 % (39.0-77.0); PLATELET COUNT 254 10^3/UL (140-415); RED BLOOD COUNT 3.39 10^6/ul (4.20-5.40); RED CELL DISTRIBUTION WIDTH 23.9 % (11.5-14.5); WHITE BLOOD COUNT 6.3 10^3/ul (4.8-10.8)
[2017-10-24 06:06] LABS: POSITIVE DIFF @See below
[2017-10-24] MEDS: DEXTROSE 5%-0.45% NACL 1,000 ML IV SCH ×2 (06:14→17:42)
[2017-10-24 06:16] LABS: CALCIUM 8.5 mg/dl (8.4-10.2); CREATININE 0.86 mg/dl (0.44-1.00); MAGNESIUM 1.7 mg/dl (1.7-2.5); POTASSIUM 3.7 mmol/L (3.5-5.1)
[2017-10-24] MEDS: METOCLOPRAMIDE 10 MG TAB PO SCH ×3 (06:36→17:42)
[2017-10-24] MEDS: PANTOPRAZOLE (EC) 40 MG TAB PO SCH ×2 (06:36→17:13)
[2017-10-24 07:30] VITALS: BP 16/93; RESP 16
--- NOTE | 2017-10-24 08:16 | PN ---
DATE: 10/24/2017 SUBJECTIVE: The patient is feeling slightly better with the OxyContin, but still has significant ab dominal and back pain but less nausea. OBJECTIVE: VITAL SIGNS: Temperature 97.9, pulse 84, respirations 17, blood pressure 116/66, oxygen saturation 91% on room air. GENERAL: Well-developed, thin female in no acute distress, lying in bed. LUNGS: Clear to auscultation bilaterally. HEART: Regular rate and rhythm. ABDOMEN: Moderate epigastric and upper abdominal tenderness to mild palpation, soft, nondistended, normoactive bowel sounds. LABORATORY DATA: Sodium 140, potassium is 3.7, chloride 100, bicarbonate 32, BUN of 6, creatinine 0 .86, blood sugar 102, calcium 8.5, magnesium 1.7, hemoglobin of 8.0, hematocrit of 27.2. White bloo d cell count 6.3, platelets 254. ASSESSMENT AND PLAN: 1. Abdominal pain. Patient continues to have significant abdominal pain despite sucralfate, Reglan , Protonix and Zantac for her gastritis and reflux esophagitis. I will continue with current medica tions and encourage advancing diet. 2. Anemia is worse. We will continue to follow but patient does not require transfusion at this ti me. 3. Post-laminectomy syndrome/vertebra compression fracture/back pain, stable, but still with signif icant pain. We will continue with analgesics and hope we get some improvement in overall control. Dictated By: PRICILA BRONSON MD, SR/GLORIA Conf#: [id number] DID#: [id number]
[2017-10-24] MEDS ORDERED: MAGNESIUM SULFATE 2 GM/50 ML 50 ML IVPB ONE (09:00)
[2017-10-24] MEDS: SUCRALFATE 1 GM TAB PO SCH ×4 (09:08→21:00)
[2017-10-24] MEDS: ESCITALOPRAM 10 MG TAB PO SCH (09:08)
[2017-10-24] MEDS: GABAPENTIN 400 MG CAP PO SCH ×3 (09:08→21:00)
[2017-10-24] MEDS: RANITIDINE 150 MG TAB PO SCH ×2 (09:08→21:00)
[2017-10-24] MEDS: BELLADONNA/PHENOBARBITAL TAB PO SCH ×4 (09:08→20:59)
[2017-10-24] MEDS: oxyCODONE (CR) 40 MG TAB [oxyCONTIN] PO SCH ×2 (09:08→21:00)
[2017-10-24 14:10] VITALS: BP 118/63; RESP 16
[2017-10-24 20:36] VITALS: BP 127/60; RESP 18
[2017-10-24] MEDS: DOCUSATE SODIUM 100 MG CAP PO SCH (20:59)
[2017-10-24] MEDS: DIAZEPAM 5 MG TAB PO PRN (21:07)
[2017-10-25 02:09] VITALS: BP 104/68; RESP 17
[2017-10-25] MEDS: DEXTROSE 5%-0.45% NACL 1,000 ML IV SCH ×3 (02:30→20:18)
[2017-10-25] MEDS: HYDROmorphONE 1 MG/ML SYG IV PRN ×6 (04:56→20:14)
[2017-10-25] MEDS: PANTOPRAZOLE (EC) 40 MG TAB PO SCH ×2 (05:07→18:07)
[2017-10-25] MEDS: METOCLOPRAMIDE 10 MG TAB PO SCH ×3 (05:07→16:52)
[2017-10-25] MEDS: ONDANSETRON 4 MG INJ IV PRN (05:07)
[2017-10-25 05:34] VITALS: BP 185/82; PULSE 95; RESP 21
[2017-10-25 05:51] LABS: ABNORMAL IP MESSAGE 1; BASOPHILS % 0.4 % (0.0-2.0); EOSINOPHILS # 0.2 10^3/ul (0.0-0.5); EOSINOPHILS % 3.3 % (0.0-7.0); HEMATOCRIT 28.8 % (37.0-47.0); HEMOGLOBIN 8.5 g/dl (12.0-16.0); LYMPHOCYTES # 1.1 10^3/ul (0.8-2.9); LYMPHOCYTES % 20.8 % (15.0-51.0); MEAN CORPUSCULAR HEMOGLOBIN 23.5 pg (29.0-33.0); MEAN CORPUSCULAR HGB CONC 29.5 g/dl (32.0-37.0); MEAN CORPUSCULAR VOLUME 79.6 fl (82.0-101.0); MEAN PLATELET VOLUME 9.5 fl (7.4-10.4); MONOCYTE # 0.7 10^3/ul (0.3-0.9); MONOCYTES % 12.5 % (0.0-11.0); NEUTROPHIL # 3.4 10^3/ul (1.6-7.5); NEUTROPHILS % 62.6 % (39.0-77.0); PLATELET COUNT 260 10^3/UL (140-415); RED BLOOD COUNT 3.62 10^6/ul (4.20-5.40); RED CELL DISTRIBUTION WIDTH 23.8 % (11.5-14.5); WHITE BLOOD COUNT 5.4 10^3/ul (4.8-10.8)
[2017-10-25 06:09] LABS: POSITIVE DIFF @See below
[2017-10-25 06:45] LABS: CALCIUM 8.7 mg/dl (8.4-10.2); CREATININE 0.88 mg/dl (0.44-1.00); MAGNESIUM 1.6 mg/dl (1.7-2.5); POTASSIUM 3.9 mmol/L (3.5-5.1)
--- NOTE | 2017-10-25 08:03 | PN ---
DATE: 10/25/2017 SUBJECTIVE: The patient continues to have severe back pain and abdominal pain and nausea. OBJECTIVE: VITAL SIGNS: Temperature 98.5, pulse 79, respirations 17, blood pressure 104/68, oxygen saturation 97% on room air. GENERAL: Well-developed, thin female in mild distress secondary to pain, lying in bed. CHEST: Clear to auscultation bilaterally. HEART: Regular rate and rhythm. ABDOMEN: Moderate to severe tenderness to mild palpation in the epigastric and upper abdominal area , normoactive bowel sounds. NEUROLOGIC: Decreased pinprick, fine touch temperature in the upper abdominal area, otherwise nonfo david. LABORATORY DATA: Magnesium 1.6, calcium 8.7, potassium 3.9, sodium 141, chloride 100, bicarbonate 35, BUN 5, creatinine 0.88. Hemoglobin of 8.5, hematocrit 28.8, white blood cell count 5.4, platele ts 260. ASSESSMENT AND PLAN: 1. Abdominal pain. Patient continues to have severe abdominal pain with no real improving with all measures. Patient did have a new compression fracture of the thoracic spine and this may be causin g referred pain. Will order an MRI of the thoracic spine to evaluate for cord compression. This pa tient does have sensory deficit over the abdominal wall area. We will continue with analgesics and treat her gastritis and esophagitis as well. 2. Post-laminectomy, syndrome/vertebral compression fracture/back pain, stable, but persistent. We will order MRI of the thoracic spine today to evaluate for significant nerve root compression or co rd compression. 3. Anemia, improved. We will continue to monitor. 4. Hypomagnesemia. Worse despite replacement. We will continue to monitor and will give 2 grams o f magnesium sulfate today. Dictated By: PRICILA BRONSON MD, SR/NTS Conf#: [id number] DID#: [id number]
[2017-10-25 08:19] VITALS: BP 115/68; RESP 16
[2017-10-25] MEDS: BELLADONNA/PHENOBARBITAL TAB PO SCH ×4 (08:43→21:00)
[2017-10-25] MEDS: ESCITALOPRAM 10 MG TAB PO SCH (08:43)
[2017-10-25] MEDS: oxyCODONE (CR) 40 MG TAB [oxyCONTIN] PO SCH ×2 (08:43→20:14)
[2017-10-25] MEDS: SUCRALFATE 1 GM TAB PO SCH ×4 (08:43→20:14)
[2017-10-25] MEDS: RANITIDINE 150 MG TAB PO SCH ×2 (08:43→20:14)
[2017-10-25] MEDS: GABAPENTIN 400 MG CAP PO SCH ×3 (08:43→20:14)
[2017-10-25] MEDS ORDERED: MAGNESIUM SULFATE 2 GM/50 ML 50 ML IVPB ONE (09:00)
--- NOTE | 2017-10-25 11:48 | RADRPT ---
PROCEDURE: MRI thoracic spine without contrast CLINICAL INDICATION: Compression fracture. Evaluate cord compression. Breast cancer TECHNIQUE: Multiplanar MRI of the thoracic spine without contrast was performed on a 3.0 T scanner utilizing the following sequences: T1-weighted, T2-weighted, GRE. COMPARISON: Chest radiograph 10/12/2017, CT abdomen pelvis 10/09/2017 FINDINGS: There is mild dextroconvex thoracic scoliosis with preservation of the thoracic kyphosis. There is a mild chronic T7 compression fracture with areas of decreased signal intensity compatible with verte bral augmentation cement. There is a moderate to severe chronic T12 compression fracture with associ ated retropulsion deformity of the upper posterior cortex measuring up to approximately 5 mm and mil d central canal narrowing without cord compression. The rest of the vertebral bodies are grossly scooter ntained in height. No suspicious osseous lesion is seen. The thoracic cord is within normal limits for signal intensity in caliber. There are multilevel anterior osteophytes. There is disc space narr owing at multiple levels in the upper through lower thoracic spine which appear most pronounced, sev ere at T6-7 and T7-8, moderate to severe at T9-10 and T10-11. No significant disc bulge or herniatio n is identified. Facet arthropathy is seen at several levels in the upper and lower thoracic spine. Otherwise no significant central canal stenosis is identified. No high-grade foraminal narrowing is seen. IMPRESSION: 1. Moderate to severe chronic T12 compression fracture with retropulsion measuring up to 5 mm with mild central canal narrowing but no cord compression. 2. Mild chronic T7 compression fracture post vertebral augmentation. 3. Thoracic spondylosis/degenerative enthesopathy. 4. Mild dextroconvex thoracic scoliosis. RPTAT: GG .Arnav Sullivan MD, Date Time Electronically viewed and signed by .Arnav Sullivan MD, on 10/25/2017 11:47 .O/
[2017-10-25 14:30] VITALS: BP 101/59; RESP 16
[2017-10-25 19:29] VITALS: BP 104/71; RESP 18
[2017-10-25] MEDS: DOCUSATE SODIUM 100 MG CAP PO SCH (20:14)
[2017-10-26] MEDS: HYDROmorphONE 1 MG/ML SYG IV PRN ×7 (01:17→23:03)
[2017-10-26 02:26] VITALS: BP 100/108; RESP 20
[2017-10-26 05:32] LABS: ABNORMAL IP MESSAGE 1; BASOPHILS % 0.3 % (0.0-2.0); EOSINOPHILS # 0.2 10^3/ul (0.0-0.5); EOSINOPHILS % 3.5 % (0.0-7.0); HEMATOCRIT 27.6 % (37.0-47.0); HEMOGLOBIN 8.1 g/dl (12.0-16.0); LYMPHOCYTES # 1.4 10^3/ul (0.8-2.9); LYMPHOCYTES % 22.1 % (15.0-51.0); MEAN CORPUSCULAR HEMOGLOBIN 23.8 pg (29.0-33.0); MEAN CORPUSCULAR HGB CONC 29.3 g/dl (32.0-37.0); MEAN CORPUSCULAR VOLUME 80.9 fl (82.0-101.0); MEAN PLATELET VOLUME 9.2 fl (7.4-10.4); MONOCYTE # 0.7 10^3/ul (0.3-0.9); MONOCYTES % 11.7 % (0.0-11.0); NEUTROPHIL # 3.9 10^3/ul (1.6-7.5); NEUTROPHILS % 62.2 % (39.0-77.0); PLATELET COUNT 260 10^3/UL (140-415); RED BLOOD COUNT 3.41 10^6/ul (4.20-5.40); RED CELL DISTRIBUTION WIDTH 24.4 % (11.5-14.5); WHITE BLOOD COUNT 6.3 10^3/ul (4.8-10.8)
[2017-10-26 05:39] LABS: POSITIVE DIFF @See below
[2017-10-26] MEDS: PANTOPRAZOLE (EC) 40 MG TAB PO SCH ×2 (06:06→17:22)
[2017-10-26] MEDS: DEXTROSE 5%-0.45% NACL 1,000 ML IV SCH ×3 (06:06→17:23)
[2017-10-26 06:14] LABS: CALCIUM 8.7 mg/dl (8.4-10.2); CREATININE 0.81 mg/dl (0.44-1.00); MAGNESIUM 1.6 mg/dl (1.7-2.5); POTASSIUM 3.9 mmol/L (3.5-5.1)
[2017-10-26 07:55] VITALS: BP 93/55; RESP 16
[2017-10-26] MEDS ORDERED: MAGNESIUM SULFATE 2 GM/50 ML 50 ML IVPB ONE (08:00)
[2017-10-26] MEDS: METOCLOPRAMIDE 10 MG TAB PO SCH ×3 (08:17→17:22)
[2017-10-26] MEDS: GABAPENTIN 400 MG CAP PO SCH ×3 (08:17→20:24)
[2017-10-26] MEDS: BELLADONNA/PHENOBARBITAL TAB PO SCH ×5 (08:17→23:03)
[2017-10-26] MEDS: ESCITALOPRAM 10 MG TAB PO SCH (08:17)
[2017-10-26] MEDS: SUCRALFATE 1 GM TAB PO SCH ×4 (08:17→20:24)
[2017-10-26] MEDS: RANITIDINE 150 MG TAB PO SCH ×2 (08:17→20:24)
[2017-10-26] MEDS: oxyCODONE (CR) 40 MG TAB [oxyCONTIN] PO SCH ×3 (09:00→20:24)
--- NOTE | 2017-10-26 11:48 | PN ---
DATE: 10/26/2017 SUBJECTIVE: The patient continues to have significant nausea, vomiting and abdominal and back pain. OBJECTIVE: VITAL SIGNS: Temperature T-max 99.6, now 98.3, pulse 68, respirations 20, blood pressure 104/71, ox ygen saturation 97% on room air. GENERAL: Well-developed, thin female in mild distress, lying in bed. LUNGS: Clear to auscultation bilaterally. HEART: Regular rate and rhythm. ABDOMEN: Moderate to severe tenderness to mild palpation in the upper abdomen. Normoactive bowel s ounds. EXTREMITIES: No cyanosis, clubbing or edema. LABORATORY DATA: Sodium 141, potassium 3.9, chloride 98, bicarbonate 36, BUN of 5, creatinine 0.81, blood sugar of 80, calcium 8.7, magnesium was 1.6. Hemoglobin of 8.1, hematocrit 27.6, platelets 2 60, white blood cell count 6.3. Thoracic spine MRI shows moderate to severe chronic T12 compression fracture with retropulsion measuring up to 5 mm with mild central canal narrowing, but no cords com pression. Mild chronic T7 compression fracture, post-vertebral augmentation. There is mild dextroc onvex thoracic scoliosis. ASSESSMENT AND PLAN: 1. Abdominal pain, nausea, vomiting. Patient had upper endoscopy, lower endoscopy and the patient had gastritis and esophagitis, but patient is not responding to medications. It is possible the pat ient may have some mesenteric ischemia as a possible as the patient did have vascular calcifications per her abdominal CT scan. We will do an MR angiogram to evaluate further to see if this may be a cause of her ongoing symptoms despite reasonable medications. 2. Back pain/post laminectomy syndrome/vertebral compression fracture. The patient with some retro pulsion and pressure and mild canal stenosis but does not explain her abdominal pain, but some of he r back pain. Will continue with p.r.n. analgesics and OxyContin. 3. Anemia, worse. Will continue to monitor but no need for transfusion. 4. Hypomagnesemia persists, will give 2 grams of IV magnesium today. Dictated By: PRICILA BRONSON MD SR/NTS Conf#: [id number] DID#: [id number] CC: PRICILA BRONSON MD;*EndCC*
--- NOTE | 2017-10-26 13:46 | RADRPT ---
PROCEDURE: MRA Abdomen without and with contrast. CLINICAL INDICATION: Abdominal pain. Evaluate for mesenteric arterial stenosis. TECHNIQUE: MRA of the abdomen before and after the uneventful intravenous administration of 20 cc of Magnevist on a high Jo MRI scanner. 3-D/multiplanar reformations were performed by the technol ogist and an independent workstation. Images were reviewed on a high-resolution PACS workstation. 3- D [id number] images were also obtained. COMPARISON: CT abdomen and pelvis 10/09/2017. FINDINGS: Vascular findings: The abdominal aorta is normal in caliber with mild atherosclerotic changes. Celiac, SMA, and bilateral single renal arteries are patent with no significant ostial stenosis. The origin of the MICHAELLE is not well visualized. The remainder of the vessel is patent with no signific ant stenosis. IMPRESSION: 1. Patent celiac and SMA with no significant ostial stenosis. 2. Unable to visualize the origin of the inferior mesenteric artery. The remainder of vessel is pat ent. 3. Single bilateral renal arteries with no significant ostial stenosis. RPTAT: BB .Tierney Hilton MD, Date Time Electronically viewed and signed by .Tierney Hilton MD, on 10/26/2017 13:46 .O/
[2017-10-26 15:14] VITALS: BP 114/69; RESP 18
[2017-10-26 20:00] VITALS: BP 100/60; RESP 16
[2017-10-26] MEDS: DOCUSATE SODIUM 100 MG CAP PO SCH (20:24)
[2017-10-27] VITALS (12 sets, daily range): BP systolic 84–109; BP diastolic 52–69; PULSE 68–78; RESP 16–18
[2017-10-27] MEDS: DEXTROSE 5%-0.45% NACL 1,000 ML IV SCH ×3 (02:30→15:32)
[2017-10-27 03:41] LABS: Arterial COHb 0.7 % (0.0-3.0); Arterial Fraction of Oxyhgb 93.5 % (93.0-99.0); Arterial HCO3 32.1 mmol/L (22.0-26.0); Arterial MetHb 0.1 % (0.0-1.5); Arterial Total Hemglobin 8.8 g/dl (12.0-18.0); MODE NASAL CANNULA
--- NOTE | 2017-10-27 03:58 | RADRPT ---
PROCEDURE: XR Chest. CLINICAL INDICATION: low pulse ox TECHNIQUE: Single frontal view of the chest was obtained COMPARISON: CR CHEST 09/07/2015 FINDINGS: The patient is rotated. Low lung volumes with associated pulmonary vascular crowding. The cardiomedi astinal silhouette is normal in size. Increased left retrocardiac opacification may be secondary to patient rotation. Superimposed small infiltrates or atelectasis cannot be excluded. There is mild pu lmonary vascular engorgement. There is no evidence of overt vaibhav pulmonary edema or consolidation.T 7 kyphoplasty changes are present. IMPRESSION: 1. Increased left retrocardiac opacification which may be secondary to patient rotation. Small infil trates or atelectasis cannot be excluded. 2. Mild pulmonary vascular engorgement without overt vaibhav pulmonary edema. 3. T7 kyphoplasty. RPTAT: HRSR Physician Katherine Date Time Electronically viewed and signed by Physician Katherine on 10/27/2017 03:58 RR/
[2017-10-27] MEDS: PANTOPRAZOLE (EC) 40 MG TAB PO SCH ×2 (05:32→17:35)
[2017-10-27] MEDS: METOCLOPRAMIDE 10 MG TAB PO SCH ×3 (05:32→17:35)
[2017-10-27 06:05] LABS: ABNORMAL IP MESSAGE 1; BASOPHILS % 0.3 % (0.0-2.0); EOSINOPHILS # 0.2 10^3/ul (0.0-0.5); EOSINOPHILS % 3.8 % (0.0-7.0); HEMATOCRIT 28.7 % (37.0-47.0); HEMOGLOBIN 8.3 g/dl (12.0-16.0); LYMPHOCYTES # 1.4 10^3/ul (0.8-2.9); LYMPHOCYTES % 24.6 % (15.0-51.0); MEAN CORPUSCULAR HEMOGLOBIN 23.7 pg (29.0-33.0); MEAN CORPUSCULAR HGB CONC 28.9 g/dl (32.0-37.0); MEAN PLATELET VOLUME 10.7 fl (7.4-10.4); MONOCYTE # 0.7 10^3/ul (0.3-0.9); MONOCYTES % 12.1 % (0.0-11.0); NEUTROPHIL # 3.4 10^3/ul (1.6-7.5); NEUTROPHILS % 58.9 % (39.0-77.0); PLATELET COUNT 246 10^3/UL (140-415); RED CELL DISTRIBUTION WIDTH 24.7 % (11.5-14.5); WHITE BLOOD COUNT 5.8 10^3/ul (4.8-10.8)
[2017-10-27 06:25] LABS: POSITIVE DIFF @See below
[2017-10-27 06:33] LABS: CALCIUM 8.2 mg/dl (8.4-10.2); CREATININE 0.72 mg/dl (0.44-1.00); MAGNESIUM 1.5 mg/dl (1.7-2.5); POTASSIUM 4.1 mmol/L (3.5-5.1)
[2017-10-27] MEDS ORDERED: MAGNESIUM SULFATE 3 GM in DEXTROSE 5% 100 ML IVPB ONE (08:00)
[2017-10-27] MEDS: ESCITALOPRAM 10 MG TAB PO SCH (08:15)
[2017-10-27] MEDS: RANITIDINE 150 MG TAB PO SCH ×2 (08:15→21:03)
[2017-10-27] MEDS: BELLADONNA/PHENOBARBITAL TAB PO SCH ×4 (08:15→21:03)
[2017-10-27] MEDS: GABAPENTIN 400 MG CAP PO SCH ×3 (08:15→21:03)
[2017-10-27] MEDS: SUCRALFATE 1 GM TAB PO SCH ×4 (08:15→21:03)
[2017-10-27] MEDS: HYDROmorphONE 1 MG/ML SYG IV PRN ×5 (08:16→23:24)
--- NOTE | 2017-10-27 10:52 | PN ---
DATE: 10/27/2017 SUBJECTIVE: The patient complains of headache intermittently. The patient still with moderate naus ea, vomiting and significant abdominal and back pain. OBJECTIVE: VITAL SIGNS: Temperature is 98.1, pulse 69, respirations 16, blood pressure 98/53, oxygen saturatio n 94% on 2 liter nasal cannula oxygen, was as low as 91% on room air. GENERAL: Well-developed, thin female in no acute distress, lying in bed. CHEST: Clear to auscultation bilaterally. HEART: Regular rate and rhythm. ABDOMEN: Moderate to severe tenderness to minimal palpation, especially in the epigastric area, dec reased bowel sounds. NEUROLOGIC: Nonfocal. LABORATORY DATA: Arterial blood gas analysis shows a pH of 7.32, pCO2 of 63.1, pO2 of 79.9. Oxygen saturation 94.3%; this on 2 liter nasal cannula oxygen. Sodium is 141, potassium 4.1, chloride 100 , bicarbonate 36, BUN of 5, creatinine 0.72, glucose of 99, calcium 8.2. Magnesium was 1.5. Hemogl obin of 8.3, hematocrit 28.7, platelets 246. White blood cell count 5.8. Chest x-ray shows increased left retrocardiac opacification, which may secondary to patient rotation , infiltrates or atelectasis cannot be excluded, mild pulmonary vascular engorgement without overt f rank pulmonary edema, T7 kyphoplasty. MR angiogram of the abdomen showing patent celiac and SMA wit h no significant ostial stenosis. IMPRESSION: 1. Hypercapnia/hypoxemia. This is new and could be related to patient's hypoventilation related to her abdominal pain. We will keep on 2 liter nasal cannula oxygen. We will repeat blood gas later today and have pulmonology evaluate the patient to assist. 2. Headache. The patient has been having ongoing intermittent headaches throughout the admission. The patient with associated nausea at times as well and will look at the brain as a possible source . We will do a CT scan of the brain today to evaluate further. 3. Abdominal pain/nausea, vomiting, ongoing without any improvement. The patient with gastritis an d esophagitis based on endoscopy, but not responding to medications. We will look for other sources of possible nausea and abdominal pain. 4. Anemia, stable. Continue to monitor. 5. Hypomagnesemia, worse despite replacement. We will give 3 grams of magnesium sulfate today. 6. Post-laminectomy, syndrome/low back pain/vertebral compression fracture, ongoing. We will bulmaro nue with OxyContin and pdemetrius Dilaudid. Dictated By: PRICILA BRONSON MD SR/NTS Conf#: [id number] DID#: [id number]
--- NOTE | 2017-10-27 11:16 | RADRPT ---
PROCEDURE: CT Brain without contrast. CLINICAL INDICATION: Pain, headache TECHNIQUE: Routine CT scan of the brain was performed on a high resolution multi detector scanner without intravenous contrast. One or more of the following dose reduction techniques were used: Auto mated exposure control; Adjustment of the mA and/or kV according to patient size; Use of iterative r econstruction technique. CTDI = 45 mGy. DLP = 720 mGy-cm. DICOM images are available. COMPARISON: No prior relevant examinations are available for comparison. FINDINGS: Hemorrhage: No evidence of intracranial hemorrhage. Acute ischemic changes: No evidence of acute ischemic changes. Mass effect: None. Parenchymal volume: Within normal limits for age. Ventricular system: Concordant with parenchymal volume. Chronic changes: Parenchymal attenuation is within normal limits. Extracranial soft tissues: Unremarkable. Calvarium: No fractures. Paranasal sinuses: Visualized paranasal sinuses are clear. Mastoid air cells: Visualized mastoid air cells are clear. IMPRESSION: No acute intracranial abnormalities. Normal appearance of the brain parenchyma. RPTAT: AADD .Ciro Mcintosh MD, MD Date Time Electronically viewed and signed by .Ciro Mcintosh MD, on 10/27/2017 11:16 .B/
[2017-10-27] MEDS: oxyCODONE (CR) 40 MG TAB [oxyCONTIN] PO SCH ×2 (12:59→21:59)
[2017-10-27 13:18] LABS: AADO2 Arterial 56.4 mmHg (7.0-24.0); Allen Test ACCEPTAB; Arterial COHb 0.6 % (0.0-3.0); Arterial Fraction of Oxyhgb 94.4 % (93.0-99.0); Arterial HCO3 28.9 mmol/L (22.0-26.0); Arterial MetHb 0.3 % (0.0-1.5); Arterial Total Hemglobin 10.1 g/dl (12.0-18.0); MODE NASAL CANNULA
[2017-10-27] MEDS: ONDANSETRON 4 MG INJ IV PRN (17:35)
[2017-10-27] MEDS: DOCUSATE SODIUM 100 MG CAP PO SCH (21:03)
[2017-10-28 00:36] VITALS: BP 100/64; PULSE 68
[2017-10-28] MEDS: DIAZEPAM 5 MG TAB PO PRN (00:39)
[2017-10-28] MEDS: DEXTROSE 5%-0.45% NACL 1,000 ML IV SCH ×4 (00:46→17:38)
[2017-10-28 03:09] VITALS: BP 114/72; RESP 16
[2017-10-28 04:35] VITALS: BP 118/62; PULSE 61
[2017-10-28] MEDS: HYDROmorphONE 1 MG/ML SYG IV PRN ×4 (04:40→16:03)
[2017-10-28 05:15] LABS: ABNORMAL IP MESSAGE 1; BASOPHILS % 0.4 % (0.0-2.0); EOSINOPHILS # 0.2 10^3/ul (0.0-0.5); EOSINOPHILS % 4.3 % (0.0-7.0); HEMATOCRIT 28.8 % (37.0-47.0); HEMOGLOBIN 8.3 g/dl (12.0-16.0); LYMPHOCYTES % 36.3 % (15.0-51.0); MEAN CORPUSCULAR HEMOGLOBIN 23.6 pg (29.0-33.0); MEAN CORPUSCULAR HGB CONC 28.8 g/dl (32.0-37.0); MEAN CORPUSCULAR VOLUME 81.8 fl (82.0-101.0); MEAN PLATELET VOLUME 9.2 fl (7.4-10.4); MONOCYTE # 0.5 10^3/ul (0.3-0.9); MONOCYTES % 9.8 % (0.0-11.0); NEUTROPHIL # 2.7 10^3/ul (1.6-7.5); NEUTROPHILS % 48.7 % (39.0-77.0); PLATELET COUNT 280 10^3/UL (140-415); RED BLOOD COUNT 3.52 10^6/ul (4.20-5.40); RED CELL DISTRIBUTION WIDTH 24.3 % (11.5-14.5); WHITE BLOOD COUNT 5.5 10^3/ul (4.8-10.8)
[2017-10-28 05:41] LABS: POSITIVE DIFF @See below
[2017-10-28] MEDS: PANTOPRAZOLE (EC) 40 MG TAB PO SCH ×2 (05:49→17:37)
[2017-10-28 06:02] LABS: CALCIUM 8.5 mg/dl (8.4-10.2); CREATININE 0.67 mg/dl (0.44-1.00); MAGNESIUM 1.6 mg/dl (1.7-2.5); POTASSIUM 4.6 mmol/L (3.5-5.1)
[2017-10-28 08:00] VITALS: BP 101/63; RESP 18
[2017-10-28] MEDS: SUCRALFATE 1 GM TAB PO SCH ×4 (08:34→22:16)
[2017-10-28] MEDS: ESCITALOPRAM 10 MG TAB PO SCH (08:34)
[2017-10-28] MEDS: RANITIDINE 150 MG TAB PO SCH ×2 (08:34→22:16)
[2017-10-28] MEDS: GABAPENTIN 400 MG CAP PO SCH ×3 (08:34→22:16)
[2017-10-28] MEDS: BELLADONNA/PHENOBARBITAL TAB PO SCH ×4 (08:34→22:16)
[2017-10-28] MEDS: METOCLOPRAMIDE 10 MG TAB PO SCH ×3 (08:34→17:37)
[2017-10-28] MEDS: oxyCODONE (CR) 40 MG TAB [oxyCONTIN] PO SCH ×2 (08:35→22:16)
[2017-10-28 09:15] LABS: AADO2 Arterial 15.5 mmHg (7.0-24.0); Allen Test ACCEPTAB; Arterial COHb 0.8 % (0.0-3.0); Arterial Fraction of Oxyhgb 94.2 % (93.0-99.0); Arterial HCO3 29.9 mmol/L (22.0-26.0); Arterial MetHb 0.3 % (0.0-1.5); Arterial Total Hemglobin 9.5 g/dl (12.0-18.0); MODE NASAL CANNULA
--- NOTE | 2017-10-28 12:05 | PN ---
Date/Time of Note Date/Time of Note DATE: 10/28/17 TIME: 11:56 Assessment/Plan VTE Prophylaxis VTE Prophylaxis Intervention: other Lines/Catheters IV [facility] Type (from [facility] Peripheral IV Urinary Cath still in place: No Assessment/Plan Assessment/Plan 1. Hypercapnia/hypoxemia. This is new and could be related to patient's hypoventilation related to her abdominal pain. We will keep on 2 liter nasal cannula oxygen. pulmonology evaluate the patient to assist. 2. Headache. The patient has been having ongoing intermittent headaches throughout the admission. The patient with associated nausea at times as well and will look at the brain as a possible source. We will do a CT scan of the brain today to evaluate further. 3. Abdominal pain/nausea, vomiting, ongoing without any improvement. The patient with gastritis and esophagitis based on endoscopy, but not responding to medications. We will look for other sources of possible nausea and abdominal pain. 4. Anemia, stable. Continue to monitor. stable but low. h/o fe sat 3%. 2 weeks ago. will recheck fe and b12 folate levels. 5. Hypomagnesemia, worse despite replacement. We will give 3 grams of magnesium sulfate today. 6. Post-laminectomy, syndrome/low back pain/vertebral compression fracture, ongoing. We will continue with OxyContin and p.r.n. Dilaudid. Subjective 24 Hr Interval Summary Free Text/Dictation sedated but arousible. no acute distress. Exam/Review of Systems Vital Signs Vitals Vital Signs Date Time Temp Pulse Resp B/P Pulse Ox O2 Delivery O2 Flow Rate FiO2 10/28/17 08:00 97.9 59 18 101/63 95 10/27/17 05:31 Nasal Cannula 2.0 Intake and Output 10/27/17 10/27/17 10/28/17 15:00 23:00 07:00 Intake Total 106 ml 1755 ml 2305 ml Balance 106 ml 1755 ml 2305 ml Results Result Diagram: 10/28/17 0457 10/28/17 0457 Results 24 hrs Laboratory Tests Test 10/27/17 13:00 10/28/17 04:57 10/28/17 08:00 Blood Gas Specimen Source Blood arterial Blood arterial Arterial Blood Date Drawn 10/27/2017 1:10:48 PM 10/28/2017 9:12:33 AM Arterial Blood pH (Temp corrected) 7.375 7.322 L Arterial Blood pCO2 (Temp correct) 50.5 H 59.1 H Arterial Blood pO2 (Temp corrected) 76.4 L 85.3 Arterial Blood HCO3 28.9 H 29.9 H Arterial Blood Base Excess 3.0 3.0 Arterial Blood Oxygen Saturation 95.3 95.2 Jorge Test ACCEPTAB ACCEPTAB Arterial Blood Gas Puncture Site Left Radial Right Radial Arterial Blood Carboxyhemoglobin 0.6 0.8 Arterial Blood Methemoglobin 0.3 0.3 Blood Gas A-a O2 Differential 56.4 H 15.5 Oxyhemoglobin Percent 94.4 94.2 Total Hemoglobin 10.1 L 9.5 L Blood Gas Temperature 37.0 37.0 Blood Gas Modality NASAL CANNULA NASAL CANNULA FiO2 27.0 24.0 Blood Gas Notified Whom DANICA WALSH Blood Gas Notified Time 10/27/2017 1:18:31 PM 10/28/2017 9:15:14 AM White Blood Count 5.5 Red Blood Count 3.52 L Hemoglobin 8.3 L Hematocrit 28.8 L Mean Corpuscular Volume 81.8 L Mean Corpuscular Hemoglobin 23.6 L Mean Corpuscular Hemoglobin Concent 28.8 L Red Cell Distribution Width 24.3 H Platelet Count 280 Mean Platelet Volume 9.2 Neutrophils % 48.7 Lymphocytes % 36.3 Monocytes % 9.8 Eosinophils % 4.3 Basophils % 0.4 Nucleated Red Blood Cells % 0.0 Neutrophils # 2.7 Lymphocytes # 2.0 Monocytes # 0.5 Eosinophils # 0.2 Basophils # 0.0 Nucleated Red Blood Cells # 0.0 Sodium Level 142 Potassium Level 4.6 Chloride Level 98 Carbon Dioxide Level 38 H Anion Gap 11 Blood Urea Nitrogen 3 L Creatinine 0.67 Glucose Level 85 Calcium Level 8.5 Magnesium Level 1.6 L Medications Medications Current Medications Ondansetron HCl (Zofran Inj) 4 mg Q4H PRN IV NAUSEA AND/OR VOMITING Last administered on 10/27/17 17:35; Admin Dose 4 MG; Start 10/09/17 at 13:00 Acetaminophen (Tylenol Tab) 650 mg Q6H PRN PO PAIN AND OR ELEVATED TEMP Last administered on 10/22/17 09:23; Admin Dose 650 MG; Start 10/09/17 at 13:00 Diazepam (Valium) 10 mg HS PRN PO insomnia Last administered on 10/28/17 00:39 ; Admin Dose 10 MG; Start 10/09/17 at 13:00 Clonidine (Catapres) 0.1 mg Q6H PRN PO ELEVATED BLOOD PRESSURE Last administered on 10/12/17 05:07; Admin Dose 0.1 MG; Start 10/09/17 at 15:30 Escitalopram Oxalate (Lexapro) 10 mg DAILY PO Last administered on 10/28/17 08 :34; Admin Dose 10 MG; Start 10/10/17 at 09:00 Pantoprazole (Protonix Tab) 40 mg BID@06,18 PO Last administered on 10/28/17 05:49; Admin Dose 40 MG; Start 10/11/17 at 18:00 Hydromorphone HCl 1 mg 1 mg Q2 PRN IV PAIN LEVEL 6-10 Last administered on 10/28 10:25; Admin Dose 1 MG; Start 10/12/17 at 21:00 Dextrose/Sodium Chloride (D5-1/2ns) 1,000 ml @ 125 mls/hr Q8H IV Last administered on 10/28/17 08:37; Admin Dose 125 MLS/HR; Start 10/16/17 at 18:30 Ranitidine HCl (Zantac) 150 mg BID PO Last administered on 10/28/17 08:34; Admin Dose 150 MG; Start 10/18/17 at 09:00 Sucralfate (Carafate) 1 gm QID PO Last administered on 10/28/17 08:34; Admin Dose 1 GM; Start 10/20/17 at 17:00 Docusate Sodium (Colace) 200 mg HS PO Last administered on 10/27/17 21:03; Admin Dose 200 MG; Start 10/21/17 at 21:00 Oxycodone HCl (Oxycontin) 40 mg BID PO Last administered on 10/28/17 08:35; Admin Dose 40 MG; Start 10/22/17 at 21:00 Gabapentin (Neurontin) 400 mg TID PO Last administered on 10/28/17 08:34; Admin Dose 400 MG; Start 10/24/17 at 09:00 KENDRA RUBY MD Oct 28, 2017 12:05
[2017-10-28 14:00] VITALS: BP 110/70; RESP 18
[2017-10-28 20:00] VITALS: BP 118/60; RESP 18
[2017-10-28] MEDS: DOCUSATE SODIUM 100 MG CAP PO SCH (22:16)
[2017-10-29] MEDS: HYDROmorphONE 1 MG/ML SYG IV PRN ×4 (00:10→16:32)
[2017-10-29 02:00] VITALS: BP 109/53; RESP 19
[2017-10-29] MEDS: DEXTROSE 5%-0.45% NACL 1,000 ML IV SCH ×4 (02:48→20:29)
[2017-10-29] MEDS: PANTOPRAZOLE (EC) 40 MG TAB PO SCH ×2 (05:28→17:55)
[2017-10-29 05:40] LABS: ABNORMAL IP MESSAGE 1; BASOPHILS % 0.2 % (0.0-2.0); EOSINOPHILS # 0.2 10^3/ul (0.0-0.5); EOSINOPHILS % 2.3 % (0.0-7.0); HEMATOCRIT 26.9 % (37.0-47.0); LYMPHOCYTES # 1.5 10^3/ul (0.8-2.9); LYMPHOCYTES % 18.3 % (15.0-51.0); MEAN CORPUSCULAR HGB CONC 29.7 g/dl (32.0-37.0); MEAN CORPUSCULAR VOLUME 80.8 fl (82.0-101.0); MEAN PLATELET VOLUME 9.5 fl (7.4-10.4); MONOCYTE # 0.7 10^3/ul (0.3-0.9); MONOCYTES % 8.6 % (0.0-11.0); NEUTROPHIL # 5.9 10^3/ul (1.6-7.5); NEUTROPHILS % 70.1 % (39.0-77.0); PLATELET COUNT 310 10^3/UL (140-415); RED BLOOD COUNT 3.33 10^6/ul (4.20-5.40); RED CELL DISTRIBUTION WIDTH 24.7 % (11.5-14.5); WHITE BLOOD COUNT 8.4 10^3/ul (4.8-10.8)
[2017-10-29 05:47] LABS: POSITIVE DIFF @See below
[2017-10-29 06:06] LABS: IRON 27 ug/dl (35-150)
[2017-10-29 06:15] LABS: TOTAL IRON BINDING CAPACITY 295 ug/dl (241-421)
[2017-10-29 07:31] LABS: FOLATE 4.4 ng/ml (2.8-20.0)
[2017-10-29 07:33] VITALS: BP 92/56; RESP 16
[2017-10-29] MEDS: METOCLOPRAMIDE 10 MG TAB PO SCH ×3 (07:56→17:58)
[2017-10-29] MEDS: BELLADONNA/PHENOBARBITAL TAB PO SCH ×4 (07:57→20:20)
[2017-10-29] MEDS: ESCITALOPRAM 10 MG TAB PO SCH (09:13)
[2017-10-29] MEDS: RANITIDINE 150 MG TAB PO SCH ×2 (09:13→20:21)
[2017-10-29] MEDS: SUCRALFATE 1 GM TAB PO SCH ×4 (09:13→20:20)
[2017-10-29] MEDS: GABAPENTIN 400 MG CAP PO SCH ×3 (09:13→20:20)
[2017-10-29] MEDS: oxyCODONE (CR) 40 MG TAB [oxyCONTIN] PO SCH ×2 (09:20→20:21)
--- NOTE | 2017-10-29 09:29 | RADRPT ---
PROCEDURE: Chest radiograph CLINICAL INDICATION: Hypoxemia. COMPARISON: Radiograph 09/07/2015. TECHNIQUE: Single frontal chest radiograph. FINDINGS: No pleural effusion or focal parenchymal opacity. The heart is not enlarged. Aortic atherosclerosis. No suspicious bone lesion. Old T7 vertebral body fracture treated with methyl methacrylate vertebroplasty. Old T12 compression fracture. IMPRESSION: 1. No acute cardiopulmonary abnormality. 2. Old compression fractures of the thoracic spine. RPTAT: PP Physician Manjit Date Time Electronically viewed and signed by Tenisha Godoy Physician on 10/29/2017 09:29 LG/
[2017-10-29 10:00] VITALS: BP 100/53; PULSE 70
[2017-10-29] MEDS: ACETAMINOPHEN 325 MG TAB PO PRN (10:42)
--- NOTE | 2017-10-29 11:55 | PN ---
Date/Time of Note Date/Time of Note DATE: 10/29/17 TIME: 11:54 Assessment/Plan VTE Prophylaxis VTE Prophylaxis Intervention: other Lines/Catheters IV C[facility]ter Type (from [facility]): Peripheral IV Urinary Cath still in place: No Assessment/Plan Assessment/Plan 1. Hypercapnia/hypoxemia. This is new and could be related to patient's hypoventilation related to her abdominal pain. We will keep on 2 liter nasal cannula oxygen. pulmonology evaluate the patient to assist. 2. Headache. The patient has been having ongoing intermittent headaches throughout the admission. The patient with associated nausea at times as well and will look at the brain as a possible source. We will do a CT scan of the brain today to evaluate further. 3. Abdominal pain/nausea, vomiting, ongoing without any improvement. The patient with gastritis and esophagitis based on endoscopy, but not responding to medications. We will look for other sources of possible nausea and abdominal pain. better for today. 4. Anemia, stable. Continue to monitor. stable but low. h/o fe sat 3%. 2 weeks ago. will recheck fe and b12 folate level. fe still low. unclear if pt not absorb. will start daily fe oral 5. Hypomagnesemia, worse despite replacement. We will give 3 grams of magnesium sulfate today. 6. Post-laminectomy, syndrome/low back pain/vertebral compression fracture, ongoing. We will continue with OxyContin and p.r.n. Dilaudid. Subjective 24 Hr Interval Summary Free Text/Dictation reports better today. less with any pain or nausea. pt sitting up talking to quest Exam/Review of Systems Vital Signs Vitals Vital Signs Date Time Temp Pulse Resp B/P Pulse Ox O2 Delivery O2 Flow Rate FiO2 10/29/17 10:00 70 100/53 10/29/17 07:33 98.2 16 96 10/27/17 05:31 Nasal Cannula 2.0 Intake and Output 10/28/17 10/28/17 10/29/17 15:00 23:00 07:00 Intake Total 330 ml 2720 ml 1875 ml Balance 330 ml 2720 ml 1875 ml Results Result Diagram: 10/29/17 4600 10/28/17 8107 Results 24 hrs Laboratory Tests Test 10/29/17 04:30 White Blood Count 8.4 # Red Blood Count 3.33 L Hemoglobin 8.0 L Hematocrit 26.9 L Mean Corpuscular Volume 80.8 L Mean Corpuscular Hemoglobin 24.0 L Mean Corpuscular Hemoglobin Concent 29.7 L Red Cell Distribution Width 24.7 H Platelet Count 310 Mean Platelet Volume 9.5 Neutrophils % 70.1 Lymphocytes % 18.3 Monocytes % 8.6 Eosinophils % 2.3 Basophils % 0.2 Nucleated Red Blood Cells % 0.0 Neutrophils # 5.9 Lymphocytes # 1.5 Monocytes # 0.7 Eosinophils # 0.2 Basophils # 0.0 Nucleated Red Blood Cells # 0.0 Iron Level 27 L Total Iron Binding Capacity 295 Percent Iron Saturation 9 L Vitamin B12 Level 499 Folate 4.4 Medications Medications Current Medications Ondansetron HCl (Zofran Inj) 4 mg Q4H PRN IV NAUSEA AND/OR VOMITING Last administered on 10/27/17 17:35; Admin Dose 4 MG; Start 10/09/17 at 13:00 Acetaminophen (Tylenol Tab) 650 mg Q6H PRN PO PAIN AND OR ELEVATED TEMP Last administered on 10/29/17 10:42; Admin Dose 650 MG; Start 10/09/17 at 13:00 Diazepam (Valium) 10 mg HS PRN PO insomnia Last administered on 10/28/17 00:39 ; Admin Dose 10 MG; Start 10/09/17 at 13:00 Clonidine (Catapres) 0.1 mg Q6H PRN PO ELEVATED BLOOD PRESSURE Last administered on 10/12/17 05:07; Admin Dose 0.1 MG; Start 10/09/17 at 15:30 Escitalopram Oxalate (Lexapro) 10 mg DAILY PO Last administered on 10/29/17 09 :13; Admin Dose 10 MG; Start 10/10/17 at 09:00 Pantoprazole (Protonix Tab) 40 mg BID@06,18 PO Last administered on 10/29/17 05:28; Admin Dose 40 MG; Start 10/11/17 at 18:00 Hydromorphone HCl 1 mg 1 mg Q2 PRN IV PAIN LEVEL 6-10 Last administered on 10/29 11:25; Admin Dose 1 MG; Start 10/12/17 at 21:00 Dextrose/Sodium Chloride (D5-1/2ns) 1,000 ml @ 125 mls/hr Q8H IV Last administered on 10/29/17 11:25; Admin Dose 125 MLS/HR; Start 10/16/17 at 18:30 Ranitidine HCl (Zantac) 150 mg BID PO Last administered on 10/29/17 09:13; Admin Dose 150 MG; Start 10/18/17 at 09:00 Sucralfate (Carafate) 1 gm QID PO Last administered on 10/29/17 09:13; Admin Dose 1 GM; Start 10/20/17 at 17:00 Docusate Sodium (Colace) 200 mg HS PO Last administered on 10/28/17 22:16; Admin Dose 200 MG; Start 10/21/17 at 21:00 Oxycodone HCl (Oxycontin) 40 mg BID PO Last administered on 10/29/17 09:20; Admin Dose 40 MG; Start 10/22/17 at 21:00 Gabapentin (Neurontin) 400 mg TID PO Last administered on 10/29/17 09:13; Admin Dose 400 MG; Start 10/24/17 at 09:00 KENDRA RUBY MD Oct 29, 2017 11:55
[2017-10-29] MEDS: FERROUS SULFATE (EC) 325 MG TAB PO SCH (12:47)
[2017-10-29 14:00] VITALS: BP 115/75; RESP 19
[2017-10-29] MEDS: DOCUSATE SODIUM 100 MG CAP PO SCH (20:21)
[2017-10-29 21:02] VITALS: BP 110/70; RESP 18
[2017-10-30 02:25] VITALS: BP 110/64; RESP 18
[2017-10-30] MEDS: HYDROmorphONE 1 MG/ML SYG IV PRN ×7 (04:40→19:36)
[2017-10-30] MEDS: DEXTROSE 5%-0.45% NACL 1,000 ML IV SCH ×3 (04:56→21:57)
[2017-10-30] MEDS: PANTOPRAZOLE (EC) 40 MG TAB PO SCH ×2 (05:00→17:21)
[2017-10-30 05:35] LABS: ABNORMAL IP MESSAGE 1; BASOPHILS % 0.4 % (0.0-2.0); EOSINOPHILS # 0.2 10^3/ul (0.0-0.5); EOSINOPHILS % 4.3 % (0.0-7.0); HEMOGLOBIN 7.8 g/dl (12.0-16.0); LYMPHOCYTES # 1.6 10^3/ul (0.8-2.9); LYMPHOCYTES % 31.3 % (15.0-51.0); MEAN CORPUSCULAR HEMOGLOBIN 24.2 pg (29.0-33.0); MEAN CORPUSCULAR VOLUME 80.7 fl (82.0-101.0); MEAN PLATELET VOLUME 9.5 fl (7.4-10.4); MONOCYTE # 0.5 10^3/ul (0.3-0.9); MONOCYTES % 10.4 % (0.0-11.0); NEUTROPHIL # 2.7 10^3/ul (1.6-7.5); PLATELET COUNT 325 10^3/UL (140-415); RED BLOOD COUNT 3.22 10^6/ul (4.20-5.40); WHITE BLOOD COUNT 5.1 10^3/ul (4.8-10.8)
[2017-10-30 05:45] LABS: POSITIVE DIFF @See below
[2017-10-30] MEDS: METOCLOPRAMIDE 10 MG TAB PO SCH ×3 (07:32→17:21)
[2017-10-30 07:56] VITALS: BP 132/79; RESP 16
[2017-10-30] MEDS ORDERED: MAGNESIUM SULFATE 3 GM in DEXTROSE 5% 100 ML IVPB ONE (08:00)
[2017-10-30] MEDS: RANITIDINE 150 MG TAB PO SCH ×2 (08:06→21:57)
[2017-10-30] MEDS: GABAPENTIN 400 MG CAP PO SCH ×3 (08:06→21:57)
[2017-10-30] MEDS: SUCRALFATE 1 GM TAB PO SCH ×4 (08:06→21:56)
[2017-10-30] MEDS: ESCITALOPRAM 10 MG TAB PO SCH (08:06)
[2017-10-30] MEDS: FERROUS SULFATE (EC) 325 MG TAB PO SCH (08:07)
[2017-10-30] MEDS: BELLADONNA/PHENOBARBITAL TAB PO SCH ×4 (08:07→21:56)
[2017-10-30 08:08] LABS: AADO2 Arterial 25.9 mmHg (7.0-24.0); Allen Test ACCEPTAB; Arterial Base Excess 4.1 mmol/L (-3.0-3); Arterial COHb 0.3 % (0.0-3.0); Arterial Fraction of Oxyhgb 90.1 % (93.0-99.0); Arterial MetHb 0.3 % (0.0-1.5); Arterial Total Hemglobin 8.8 g/dl (12.0-18.0); MODE ROOM AIR
[2017-10-30] MEDS: oxyCODONE (CR) 40 MG TAB [oxyCONTIN] PO SCH ×2 (08:08→21:56)
[2017-10-30] MEDS: ONDANSETRON 4 MG INJ IV PRN ×2 (10:06→19:06)
[2017-10-30 14:53] VITALS: BP 112/71; RESP 16
[2017-10-30 20:31] VITALS: BP 95/54; RESP 19
[2017-10-30] MEDS: DOCUSATE SODIUM 100 MG CAP PO SCH (21:56)
[2017-10-31] MEDS: HYDROmorphONE 1 MG/ML SYG IV PRN ×4 (02:34→20:25)
[2017-10-31 03:02] VITALS: BP 129/73; RESP 18
[2017-10-31] MEDS: PANTOPRAZOLE (EC) 40 MG TAB PO SCH ×2 (05:11→17:25)
[2017-10-31 05:13] LABS: ABNORMAL IP MESSAGE 1; BASOPHILS % 0.4 % (0.0-2.0); EOSINOPHILS # 0.2 10^3/ul (0.0-0.5); EOSINOPHILS % 4.4 % (0.0-7.0); HEMATOCRIT 27.7 % (37.0-47.0); HEMOGLOBIN 8.2 g/dl (12.0-16.0); MEAN CORPUSCULAR HEMOGLOBIN 23.9 pg (29.0-33.0); MEAN CORPUSCULAR HGB CONC 29.6 g/dl (32.0-37.0); MEAN CORPUSCULAR VOLUME 80.8 fl (82.0-101.0); MEAN PLATELET VOLUME 9.2 fl (7.4-10.4); MONOCYTE # 0.5 10^3/ul (0.3-0.9); MONOCYTES % 9.2 % (0.0-11.0); NEUTROPHIL # 2.7 10^3/ul (1.6-7.5); NEUTROPHILS % 49.3 % (39.0-77.0); PLATELET COUNT 316 10^3/UL (140-415); RED BLOOD COUNT 3.43 10^6/ul (4.20-5.40); RED CELL DISTRIBUTION WIDTH 25.2 % (11.5-14.5); WHITE BLOOD COUNT 5.4 10^3/ul (4.8-10.8)
[2017-10-31 05:23] LABS: POSITIVE DIFF @See below
[2017-10-31 05:48] LABS: CALCIUM 8.8 mg/dl (8.4-10.2); CREATININE 0.77 mg/dl (0.44-1.00); MAGNESIUM 1.6 mg/dl (1.7-2.5); POTASSIUM 3.9 mmol/L (3.5-5.1)
[2017-10-31] MEDS: DEXTROSE 5%-0.45% NACL 1,000 ML IV SCH (07:29)
[2017-10-31] MEDS: METOCLOPRAMIDE 10 MG TAB PO SCH ×3 (07:49→17:25)
[2017-10-31] MEDS: BELLADONNA/PHENOBARBITAL TAB PO SCH ×4 (07:49→20:26)
[2017-10-31] MEDS ORDERED: MAGNESIUM SULFATE 3 GM in DEXTROSE 5% 100 ML IVPB ONE (08:00)
--- NOTE | 2017-10-31 08:04 | PN ---
DATE: 10/30/2017 SUBJECTIVE: The patient comes in with worse back pain and abdominal pain worse than before and more nausea and vomiting. OBJECTIVE: VITAL SIGNS: Temperature 98.2, respirations 18, pulse 72, blood pressure 110/64, oxygen saturation 92% on 2 L nasal cannula. GENERAL: Well-developed, ill-appearing female in no acute distress, lying in bed. LUNGS: Clear to auscultation bilaterally. HEART: Regular rate and rhythm. ABDOMEN: Moderate to severe tenderness to minimal palpation in the upper abdominal area, decreased bowel sounds, nondistended. NEUROLOGIC: Nonfocal. LABORATORY DATA: Magnesium was 1.5, hemoglobin of 7.8, hematocrit 26.0, platelets 325, white blood cell count 5.1. IMPRESSION: 1. Abdominal pain, nausea, vomiting, unclear etiology. The patient was found to have gastritis and esophagitis, but has not responded to routine medications. Will have Dr. Harding reinvestigate the pa tient in order to assist with possible causes and treatment for patient's ongoing symptoms. 2. Back pain/vertebral compression fractures/post laminectomy syndrome. The patient continued to h ave moderate to severe pain unresponsive to moderate medication. We will have palliative care evalu ate the patient to assist. 3. Anemia. This remains stable. Continue to monitor, but no need for transfusion. 4. Hypomagnesemia persists and probably related to patient's intake. Will give 3 g of magnesium españa lfate today. Dictated By: PRICILA BRONSON MD, SR/GLORIA Conf#: [id number] DID#: [id number]
[2017-10-31] MEDS: GABAPENTIN 400 MG CAP PO SCH ×3 (08:28→20:26)
[2017-10-31] MEDS: SUCRALFATE 1 GM TAB PO SCH ×4 (08:28→20:26)
[2017-10-31] MEDS: FERROUS SULFATE (EC) 325 MG TAB PO SCH (08:28)
[2017-10-31] MEDS: oxyCODONE (CR) 40 MG TAB [oxyCONTIN] PO SCH ×2 (08:29→22:33)
[2017-10-31] MEDS: RANITIDINE 150 MG TAB PO SCH ×2 (08:29→20:26)
[2017-10-31 08:30] VITALS: BP 112/67; RESP 18
[2017-10-31 08:38] LABS: AADO2 Arterial 7.4 mmHg (7.0-24.0); Allen Test ACCEPTAB; Arterial Base Excess 4.7 mmol/L (-3.0-3); Arterial COHb 0.1 % (0.0-3.0); Arterial HCO3 31.4 mmol/L (22.0-26.0); Arterial MetHb 0.3 % (0.0-1.5); Arterial Total Hemglobin 9.9 g/dl (12.0-18.0); MODE ROOM AIR
--- NOTE | 2017-10-31 08:48 | PN ---
DATE: 10/31/2017 SUBJECTIVE: The patient continues to have significant abdominal pain, nausea and back pain. OBJECTIVE: VITAL SIGNS: Temperature 98.2, pulse of 74, respirations 18, blood pressure 129/73, oxygen saturati on 92% on room air. GENERAL: Well-developed, ill-appearing female in no acute distress, lying in bed. LUNGS: Clear to auscultation bilaterally. HEART: Regular rate and rhythm. ABDOMEN: Moderate to severe tenderness to minimal palpation, decreased bowel sounds. Mild distenti on. LABORATORY DATA: Arterial blood gas on room air done 10/30/2017 shows a pH of 7.37, pCO2 of 52.6, p O2 of 60.8, oxygen saturation of 90.6%. CBC shows a white blood cell count of 5.4, hemoglobin of 8. 2, hematocrit 27.7, platelets 316. Sodium 143, potassium 3.9, chloride 100, bicarbonate 39, BUN of 8, creatinine 0.77, magnesium 1.66. ASSESSMENT AND PLAN: 1. Abdominal pain/nausea and vomiting, still unclear etiology. Upper endoscopy, lower endoscopy re vealed esophagitis and gastritis. The patient is not responding to medications and continues to hav e moderate to severe symptoms. We will hold her escitalopram as this may be a cause of her nausea, but unclear as to her back pain issues and abdominal pain with current medications. We will have Dr Jase Harding reevaluate the patient to assist and will have Dr. Obando from palliative care assist with pain control. 2. Hypercapnia improved but continues. The patient likely with hypoventilation due to her abdomina l pain and splinting. We will continue with incentive spirometry and repeat gas in the morning. 3. Back pain/post laminectomy syndrome/vertebral compression fracture, ongoing with moderate to sev ere daily pain. Will have palliative care consultation today to assist with pain control. 4. Anemia, stable. Continue to monitor. 5. Hypomagnesemia, ongoing. We will continue to replace and will give 3 grams today of magnesium s ulfate. Dictated By: PRICILA BRONSON MD SR/NTS Conf#: [id number] DID#: [id number]
[2017-10-31 14:41] VITALS: BP 113/71; RESP 17
--- NOTE | 2017-10-31 15:40 | CONS ---
Date/Time of Note Date/Time of Note DATE: 10/31/17 TIME: 15:29 Consult Date/Type/Reason Admit Date/Time Oct 09, 2017 at 11:49 Type of Consultation: GI Subjective I was asked to see the patient again because of persistent pain complaints. I have spoken with the patient's nurses who tells me that she gets narcotic injections routinely. She is having bowel movements regularly. She is not having any vomiting. On asking the patient about her pain complaints, she is so sleepy that she falls asleep before she is able to complete a sentence. Nonetheless I have reviewed the workup to date. She was noted to have iron deficiency anemia although her stool for occult blood was negative. Her endoscopy showed gastritis and biopsies were nonspecific. She had a colonoscopy at which time a number of adenoma was removed and diverticulosis was found. Because of her complaints a CAT scan was performed which was negative. In addition she had an emptying study which was normal and an MRA which was normal as well. Objective Vital Signs Date Time Temp Pulse Resp B/P Pulse Ox O2 Delivery O2 Flow Rate FiO2 10/31/17 14:41 97.5 69 17 113/71 92 Chest: clear to P and A Cardiac: No m, r, g Abdomen: soft, non tender, + bs Intake and Output 10/30/17 10/30/17 10/31/17 15:00 23:00 07:00 Intake Total 1106 ml 1960 ml 1565 ml Balance 1106 ml 1960 ml 1565 ml Results/Medications Result Diagram: 10/31/17 0423 10/31/17 0423 Results 24 hrs Laboratory Tests Test 10/31/17 04:23 White Blood Count 5.4 Red Blood Count 3.43 L Hemoglobin 8.2 L Hematocrit 27.7 L Mean Corpuscular Volume 80.8 L Mean Corpuscular Hemoglobin 23.9 L Mean Corpuscular Hemoglobin Concent 29.6 L Red Cell Distribution Width 25.2 H Platelet Count 316 Mean Platelet Volume 9.2 Neutrophils % 49.3 Lymphocytes % 36.0 Monocytes % 9.2 Eosinophils % 4.4 Basophils % 0.4 Nucleated Red Blood Cells % 0.0 Neutrophils # 2.7 Lymphocytes # 2.0 Monocytes # 0.5 Eosinophils # 0.2 Basophils # 0.0 Nucleated Red Blood Cells # 0.0 Sodium Level 143 Potassium Level 3.9 Chloride Level 100 Carbon Dioxide Level 39 H Anion Gap 8 Blood Urea Nitrogen 5 L Creatinine 0.77 Glucose Level 92 Calcium Level 8.8 Magnesium Level 1.6 L Medications Current Medications Ondansetron HCl (Zofran Inj) 4 mg Q4H PRN IV NAUSEA AND/OR VOMITING Last administered on 10/30/17 19:06; Admin Dose 4 MG; Start 10/09/17 at 13:00 Acetaminophen (Tylenol Tab) 650 mg Q6H PRN PO PAIN AND OR ELEVATED TEMP Last administered on 10/29/17 10:42; Admin Dose 650 MG; Start 10/09/17 at 13:00 Diazepam (Valium) 10 mg HS PRN PO insomnia Last administered on 10/28/17 00:39 ; Admin Dose 10 MG; Start 10/09/17 at 13:00 Clonidine (Catapres) 0.1 mg Q6H PRN PO ELEVATED BLOOD PRESSURE Last administered on 10/12/17 05:07; Admin Dose 0.1 MG; Start 10/09/17 at 15:30 Pantoprazole (Protonix Tab) 40 mg BID@06,18 PO Last administered on 10/31/17 05:11; Admin Dose 40 MG; Start 10/11/17 at 18:00 Hydromorphone HCl 1 mg 1 mg Q2 PRN IV PAIN LEVEL 6-10 Last administered on 10/31 07:50; Admin Dose 1 MG; Start 10/12/17 at 21:00 Dextrose/Sodium Chloride (D5-1/2ns) 1,000 ml @ 125 mls/hr Q8H IV Last administered on 10/31/17 07:29; Admin Dose 125 MLS/HR; Start 10/16/17 at 18:30 Ranitidine HCl (Zantac) 150 mg BID PO Last administered on 10/31/17 08:29; Admin Dose 150 MG; Start 10/18/17 at 09:00 Sucralfate (Carafate) 1 gm QID PO Last administered on 10/31/17 12:13; Admin Dose 1 GM; Start 10/20/17 at 17:00 Docusate Sodium (Colace) 200 mg HS PO Last administered on 10/30/17 21:56; Admin Dose 200 MG; Start 10/21/17 at 21:00 Oxycodone HCl (Oxycontin) 40 mg BID PO Last administered on 10/31/17 08:29; Admin Dose 40 MG; Start 10/22/17 at 21:00 Gabapentin (Neurontin) 400 mg TID PO Last administered on 10/31/17 12:13; Admin Dose 400 MG; Start 10/24/17 at 09:00 Ferrous Sulfate (Ferrous Sulfate (Ec)) 325 mg DAILY PO Last administered on 08:28; Admin Dose 325 MG; Start 10/29/17 at 12:00 Assessment/Plan Chief Complaint/Hosp Course Impression: 1. Abdominal pain - extensive negative evaluation - suspect symptoms related to narcotics usage 2. Barretts Esophagus on bx of GE junction - short segment - need fu EGD in 1 year 3. Iron Deficiency anemia - if it persists would arrange small intestinal capsule study as outpatient since it is not available in hospital, although suspect iron deficiency from gastric irritation and I do note stool OB negative Plan: Discussed with Dr Grimm Await input of pain management If sucralfate, ranitidine and reglan have not helped symptoms, would consider discontinuing them Please have her contact me as outpatient once she is discharged to arrange small bowel capsule study Problems: IRIS CHAMBERS MD Oct 31, 2017 15:39
[2017-10-31] MEDS: DOCUSATE SODIUM 100 MG CAP PO SCH (20:26)
[2017-10-31 20:30] VITALS: BP 126/77; RESP 18
[2017-11-01] MEDS: HYDROmorphONE 1 MG/ML SYG IV PRN ×8 (00:35→20:27)
[2017-11-01] MEDS: DEXTROSE 5%-0.45% NACL 1,000 ML IV SCH ×4 (02:30→17:03)
[2017-11-01 02:35] VITALS: BP 105/60; RESP 18
[2017-11-01] MEDS: PANTOPRAZOLE (EC) 40 MG TAB PO SCH ×2 (05:07→17:03)
[2017-11-01 07:16] LABS: ABNORMAL IP MESSAGE 1; BASOPHILS % 0.2 % (0.0-2.0); EOSINOPHILS # 0.2 10^3/ul (0.0-0.5); EOSINOPHILS % 4.5 % (0.0-7.0); HEMOGLOBIN 8.3 g/dl (12.0-16.0); LYMPHOCYTES # 1.8 10^3/ul (0.8-2.9); LYMPHOCYTES % 36.3 % (15.0-51.0); MEAN CORPUSCULAR HEMOGLOBIN 24.1 pg (29.0-33.0); MEAN CORPUSCULAR HGB CONC 29.6 g/dl (32.0-37.0); MEAN CORPUSCULAR VOLUME 81.4 fl (82.0-101.0); MONOCYTE # 0.5 10^3/ul (0.3-0.9); MONOCYTES % 9.7 % (0.0-11.0); NEUTROPHIL # 2.5 10^3/ul (1.6-7.5); NEUTROPHILS % 48.7 % (39.0-77.0); PLATELET COUNT 341 10^3/UL (140-415); RED BLOOD COUNT 3.44 10^6/ul (4.20-5.40); RED CELL DISTRIBUTION WIDTH 25.6 % (11.5-14.5); WHITE BLOOD COUNT 5.1 10^3/ul (4.8-10.8)
[2017-11-01 07:18] LABS: POSITIVE DIFF @See below
[2017-11-01] MEDS: BELLADONNA/PHENOBARBITAL TAB PO SCH ×4 (07:35→21:00)
[2017-11-01 07:52] LABS: CALCIUM 8.5 mg/dl (8.4-10.2); CREATININE 0.7 mg/dl (0.44-1.00); MAGNESIUM 1.6 mg/dl (1.7-2.5); POTASSIUM 3.4 mmol/L (3.5-5.1)
[2017-11-01 08:04] VITALS: BP 133/78; RESP 19
[2017-11-01] MEDS: GABAPENTIN 400 MG CAP PO SCH ×3 (09:27→21:09)
[2017-11-01] MEDS: oxyCODONE (CR) 40 MG TAB [oxyCONTIN] PO SCH ×2 (09:27→21:09)
[2017-11-01] MEDS: FERROUS SULFATE (EC) 325 MG TAB PO SCH (09:27)
--- NOTE | 2017-11-01 09:51 | PN ---
DATE: 11/01/2017 SUBJECTIVE: Patient continues to have moderate to severe abdominal pain as well as back pain and si gnificant nausea and vomiting. OBJECTIVE: VITAL SIGNS: Temperature 98.3, pulse 68, respirations 18, blood pressure 105/60, oxygen saturation 92% on room air. GENERAL: Well-developed, ill-appearing female in no acute distress, lying in bed. LUNGS: Clear to auscultation bilaterally. HEART: Regular rate and rhythm. ABDOMEN: Moderate to severe tenderness to minimal palpation in the epigastric abdominal area. Norm oactive bowel sounds. No masses. LABORATORY DATA: Pending at the time of this dictation. IMPRESSION: 1. Abdominal pain/nausea and vomiting continues to despite medications. Appreciate Dr. Harding's revi siting the patient. We will discontinue Reglan, ranitidine, and sucralfate as there has been no derick arent benefit while she has been on these medications. We will continue proton pump inhibitor and d iet. 2. Back pain/post laminectomy syndrome/vertebral compression fracture. The patient continues to alonso ve moderate to severe back pain and we will continue to adjust medications. Await palliative care c bogdan with Dr. Obando to make recommendations on pain control. 3. Hypercapnia. We will await blood gas analysis and continue to have patient use incentive spirom eter. 4. Hypomagnesemia. The patient received 3 grams yesterday and await results of today's magnesium i n the labs and we will replace as needed. Dictated By: PRICILA BRONSON MD, SR/GLORIA Conf#: [id number] DID#: [id number]
[2017-11-01] MEDS ORDERED: POTASSIUM CHLORIDE 250 ML IVPB ONE (13:30)
[2017-11-01] MEDS ORDERED: MAGNESIUM SULFATE 3 GM in DEXTROSE 5% 100 ML IVPB ONE (13:30)
[2017-11-01 20:00] VITALS: BP 123/67; RESP 20
[2017-11-01] MEDS: DOCUSATE SODIUM 100 MG CAP PO SCH (21:10)
[2017-11-02] MEDS: HYDROmorphONE 1 MG/ML SYG IV PRN ×3 (01:33→07:02)
[2017-11-02] MEDS: DIAZEPAM 5 MG TAB PO PRN ×2 (01:55→22:24)
[2017-11-02 02:00] VITALS: BP 96/54; RESP 20
[2017-11-02] MEDS: DEXTROSE 5%-0.45% NACL 1,000 ML IV SCH ×5 (02:30→20:59)
[2017-11-02] MEDS: PANTOPRAZOLE (EC) 40 MG TAB PO SCH ×2 (05:58→17:35)
[2017-11-02 06:24] LABS: ABNORMAL IP MESSAGE 1; BASOPHILS % 0.4 % (0.0-2.0); EOSINOPHILS # 0.3 10^3/ul (0.0-0.5); EOSINOPHILS % 3.8 % (0.0-7.0); HEMATOCRIT 29.6 % (37.0-47.0); HEMOGLOBIN 8.8 g/dl (12.0-16.0); LYMPHOCYTES # 2.7 10^3/ul (0.8-2.9); LYMPHOCYTES % 38.8 % (15.0-51.0); MEAN CORPUSCULAR HGB CONC 29.7 g/dl (32.0-37.0); MEAN CORPUSCULAR VOLUME 80.9 fl (82.0-101.0); MEAN PLATELET VOLUME 8.7 fl (7.4-10.4); MONOCYTE # 0.7 10^3/ul (0.3-0.9); MONOCYTES % 9.4 % (0.0-11.0); NEUTROPHIL # 3.2 10^3/ul (1.6-7.5); NEUTROPHILS % 46.6 % (39.0-77.0); PLATELET COUNT 361 10^3/UL (140-415); RED BLOOD COUNT 3.66 10^6/ul (4.20-5.40); RED CELL DISTRIBUTION WIDTH 25.7 % (11.5-14.5); WHITE BLOOD COUNT 6.9 10^3/ul (4.8-10.8)
[2017-11-02 06:47] LABS: CALCIUM 8.9 mg/dl (8.4-10.2); CREATININE 0.72 mg/dl (0.44-1.00); MAGNESIUM 1.8 mg/dl (1.7-2.5); POTASSIUM 4.7 mmol/L (3.5-5.1)
[2017-11-02 06:54] LABS: POSITIVE DIFF @See below
[2017-11-02 07:50] VITALS: BP 118/76; RESP 16
--- NOTE | 2017-11-02 08:38 | CONS ---
Date/Time of Note Date/Time of Note DATE: 11/02/17 TIME: 08:29 Assessment/Plan Assessment/Plan Additional Assessment/Plan Acute on chronic back pain History of compression fractures Protracted nausea vomiting From the pain management standpoint I do believe this is a strong possibility that her protracted nausea vomiting could be related to her opioids especially oxycodone class of medications the possibility is marijuana . Unfortunately are choices of alternative medication or limited especially in the hospital setting. I do not believe she should receive fentanyl ,morphine. or nycinta and opana has been taken off the market. She has no focal neurological findings on exam I had a long conversation with her insofar as options and we have decided to switch her to methadone and discontinue the codeine based medications. Will follow daily. Consultation Date/Type/Reason Admit Date/Time Oct 09, 2017 at 11:49 Hx of Present Illness His lady is 57-year-old female with a history of chronic pain syndrome. She has had 2 compression fractures of her lumbosacral spine the first was approximately 1 year ago and a second was within this recent preadmission. She states she had a non-syncopal fall, mechanical without other neurological complaints prior to this hospitalization. This admission was prompted by chronic nausea vomiting workup included only gastritis colonoscopy fairly unremarkable except for polyps patient is status post laminectomy, kyphoplasty, other unknown lumbar sacral surgical intervention in the past. Pain is described as 10/10 with current pain control medication she has some relief but not considerable. She states her pain is 5/10 with current doses of Dilaudid. Additionally she is receiving OxyContin and oxycodone and at home she takes Percocet and Dilaudid on particularly bad days. Pain is affecting her physical function mood sleeping patterns. She describes nausea vomiting so much so she is unable to function she throws up continually throughout the day denies itching mental cloudiness sweating fatigue drowsiness there is no past medical history of purposeful oversedation. 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 She still smokes marijuana at least 4 times a week she is a smoker ,nondrinker. She has no past medical history of loss or stolen medications attempts to obtain higher dosages throughout this hospitalization I do not get the impression that she is taking pain medications and response to situational stressors. Past Surgical History Past Surgical Hx: other (Refer to HPI) Social History Alcohol Use: none Smoking Status: Current every day smoker Drug Use: marijuana Exam/Review of Systems Vital Signs Vitals Vital Signs Date Time Temp Pulse Resp B/P Pulse Ox O2 Delivery O2 Flow Rate FiO2 11/02/17 02:00 98.1 67 20 96/54 97 Intake and Output 11/01/17 11/01/17 11/02/17 15:00 23:00 07:00 Intake Total 1274 ml 1725 ml Balance 1274 ml 1725 ml Exam Constitutional: alert, oriented, well developed Psych: anxiety, other (Depressed mood) Respiratory: clear to auscultation, normal air movement Cardiovascular: nl pulses, regular rate and rhythm Gastrointestinal: nl liver, spleen, non-tender, soft Neurological: [employer] II-XII intact, nl mental status, nl speech, nl strength Results Result Diagram: 11/02/17 0553 11/02/17 0553 Results 24 hrs Laboratory Tests Test 11/02/17 05:53 White Blood Count 6.9 # Red Blood Count 3.66 L Hemoglobin 8.8 L Hematocrit 29.6 L Mean Corpuscular Volume 80.9 L Mean Corpuscular Hemoglobin 24.0 L Mean Corpuscular Hemoglobin Concent 29.7 L Red Cell Distribution Width 25.7 H Platelet Count 361 Mean Platelet Volume 8.7 Neutrophils % 46.6 Lymphocytes % 38.8 Monocytes % 9.4 Eosinophils % 3.8 Basophils % 0.4 Nucleated Red Blood Cells % 0.0 Neutrophils # 3.2 Lymphocytes # 2.7 Monocytes # 0.7 Eosinophils # 0.3 Basophils # 0.0 Nucleated Red Blood Cells # 0.0 Sodium Level 143 Potassium Level 4.7 Chloride Level 102 Carbon Dioxide Level 35 H Anion Gap 11 Blood Urea Nitrogen 5 L Creatinine 0.72 Glucose Level 88 Calcium Level 8.9 Magnesium Level 1.8 Medications Medications Current Medications Ondansetron HCl (Zofran Inj) 4 mg Q4H PRN IV NAUSEA AND/OR VOMITING Last administered on 10/30/17 19:06; Admin Dose 4 MG; Start 10/09/17 at 13:00 Acetaminophen (Tylenol Tab) 650 mg Q6H PRN PO PAIN AND OR ELEVATED TEMP Last administered on 10/29/17 10:42; Admin Dose 650 MG; Start 10/09/17 at 13:00 Diazepam (Valium) 10 mg HS PRN PO insomnia Last administered on 11/02/17 01:55 ; Admin Dose 10 MG; Start 10/09/17 at 13:00 Clonidine (Catapres) 0.1 mg Q6H PRN PO ELEVATED BLOOD PRESSURE Last administered on 10/12/17 05:07; Admin Dose 0.1 MG; Start 10/09/17 at 15:30 Pantoprazole (Protonix Tab) 40 mg BID@06,18 PO Last administered on 11/02/17 05:58; Admin Dose 40 MG; Start 10/11/17 at 18:00 Hydromorphone HCl 1 mg 1 mg Q2 PRN IV PAIN LEVEL 6-10 Last administered on 11/02 07:02; Admin Dose 1 MG; Start 10/12/17 at 21:00 Dextrose/Sodium Chloride (D5-1/2ns) 1,000 ml @ 125 mls/hr Q8H IV Last administered on 11/01/17 17:03; Admin Dose 125 MLS/HR; Start 10/16/17 at 18:30 Docusate Sodium (Colace) 200 mg HS PO Last administered on 11/01/17 21:10; Admin Dose 200 MG; Start 10/21/17 at 21:00 Oxycodone HCl (Oxycontin) 40 mg BID PO Last administered on 11/01/17 21:09; Admin Dose 40 MG; Start 10/22/17 at 21:00 Gabapentin (Neurontin) 400 mg TID PO Last administered on 11/01/17 21:09; Admin Dose 400 MG; Start 10/24/17 at 09:00 Ferrous Sulfate (Ferrous Sulfate (Ec)) 325 mg DAILY PO Last administered on 09:27; Admin Dose 325 MG; Start 10/29/17 at 12:00 AMY POON Nov 02, 2017 08:38
--- NOTE | 2017-11-02 09:06 | PN ---
DATE: 11/02/2017 SUBJECTIVE: The patient continues to have moderate to severe back pain and abdominal pain, less trudy sea and vomiting yesterday. OBJECTIVE: VITAL SIGNS: Temperature 98.1, pulse 67, respirations 20, blood pressure 96/54. Oxygen saturation 97% on room air. GENERAL: Well-developed, thin, ill-appearing female in bed in no acute distress. LUNGS: Clear to auscultation bilaterally. HEART: Regular rate and rhythm. ABDOMEN: Soft, moderate to severe tenderness to minimal palpation, decreased bowel sounds, no en s. LABORATORY DATA: White blood cell count 6.9, hemoglobin 8.8, hematocrit 29.6, platelets 361. Sodiu m 143, potassium 4.7, chloride 102, bicarbonate 35, BUN of 5, creatinine 0.78. Magnesium was 1.8, c alcium 8.9, glucose 88. IMPRESSION: 1. Abdominal pain/nausea, vomiting, no real improvement in overall symptoms. The patient with slig ht decrease nausea and vomiting yesterday and there was a discontinuation of Reglan, ranitidine and sucralfate yesterday. We will continue with the proton pump inhibitor and p.r.n. finn lgesics. 2. Post-laminectomy syndrome/vertebral compression fracture/low back pain ongoing with moderate to severe daily pain. Will have pain management, palliative care evaluate the patient to assist with p ain control. 3. Hypomagnesemia, improved with replacement. 4. Hypopotassemia improved with replacement. Will continue to monitor. 5. Anemia. Stable. Continue with medications. 6. Hypercapnia continue to encourage deep breathing and recheck a blood gas tomorrow. Dictated By: PRICILA BRONSON MD, SR/NTS Conf#: [id number] DID#: [id number]
[2017-11-02] MEDS: BELLADONNA/PHENOBARBITAL TAB PO SCH ×4 (09:07→21:00)
[2017-11-02] MEDS: FERROUS SULFATE (EC) 325 MG TAB PO SCH (09:07)
[2017-11-02] MEDS: GABAPENTIN 400 MG CAP PO SCH ×3 (09:07→21:03)
[2017-11-02] MEDS: HYDROmorphONE 2 MG TAB PO PRN ×3 (09:51→15:59)
[2017-11-02] MEDS: ONDANSETRON 4 MG INJ IV PRN ×4 (10:45→20:59)
[2017-11-02] MEDS: METHADONE 10 MG TAB PO SCH ×2 (11:19→21:03)
[2017-11-02 14:16] VITALS: BP 129/87; RESP 16
[2017-11-02 20:00] VITALS: BP 107/56; RESP 20
[2017-11-02] MEDS: DOCUSATE SODIUM 100 MG CAP PO SCH (21:03)
[2017-11-03 02:00] VITALS: BP 118/55; RESP 20
[2017-11-03] MEDS: DEXTROSE 5%-0.45% NACL 1,000 ML IV SCH ×4 (02:30→17:52)
[2017-11-03] MEDS: PANTOPRAZOLE (EC) 40 MG TAB PO SCH ×2 (05:09→17:51)
[2017-11-03 06:38] LABS: CALCIUM 8.6 mg/dl (8.4-10.2); CREATININE 0.73 mg/dl (0.44-1.00); MAGNESIUM 1.5 mg/dl (1.7-2.5); POTASSIUM 3.9 mmol/L (3.5-5.1)
[2017-11-03 07:50] VITALS: BP 124/84; RESP 16
[2017-11-03] MEDS: GABAPENTIN 400 MG CAP PO SCH ×3 (08:42→21:31)
[2017-11-03] MEDS: FERROUS SULFATE (EC) 325 MG TAB PO SCH (08:42)
[2017-11-03] MEDS: BELLADONNA/PHENOBARBITAL TAB PO SCH ×4 (08:42→21:00)
[2017-11-03] MEDS: METHADONE 10 MG TAB PO SCH ×2 (08:43→21:31)
[2017-11-03] MEDS ORDERED: MAGNESIUM SULFATE 3 GM in DEXTROSE 5% 100 ML IVPB ONE (10:00)
[2017-11-03] MEDS: DULOXETINE 20 MG CAP DR PO SCH (10:02)
[2017-11-03 10:03] LABS: AADO2 Arterial 18.1 mmHg (7.0-24.0); Allen Test ACCEPTAB; Arterial Base Excess 2.3 mmol/L (-3.0-3); Arterial COHb 0.3 % (0.0-3.0); Arterial Fraction of Oxyhgb 94.6 % (93.0-99.0); Arterial HCO3 27.6 mmol/L (22.0-26.0); Arterial MetHb 0.3 % (0.0-1.5); Arterial Total Hemglobin 10.5 g/dl (12.0-18.0); MODE ROOM AIR
[2017-11-03] MEDS: HYDROmorphONE 2 MG TAB PO PRN ×3 (10:13→22:35)
--- NOTE | 2017-11-03 11:21 | PN ---
DATE: 11/03/2017 SUBJECTIVE: The patient continues to have severe back pain and abdominal pain and continues to have nausea and vomiting. OBJECTIVE: VITAL SIGNS: Temperature 98.4, blood pressure 124/84, pulse 82, respirations 16, oxygen saturation 97%. GENERAL: Well-developed, ill-appearing female in no acute distress, sitting up in bed. CHEST: Clear to auscultation bilaterally. HEART: Regular rate and rhythm. ABDOMEN: Moderate to severe upper abdominal tenderness to minimal palpation, decreased bowel sounds , nondistended. NEUROLOGIC: Nonfocal. LABORATORY DATA: Sodium 142, potassium 3.9, chloride 102, bicarbonate 32, BUN of 5, creatinine 0.73 , magnesium 1.5, calcium 8.6, glucose 97. ASSESSMENT AND PLAN: 1. Abdominal pain/nausea and vomiting, persists unclear etiology. The patient has a long history o f nausea and vomiting even prior to this hospitalization and unclear etiology. We will continue wit h medications and adjust as needed. 2. Post-laminectomy, syndrome/vertebral compression fracture/back pain. Patient continues to have moderate to severe pain. Appreciate Dr. Obando's consultation. We will continue with methadone a nd adjust as necessary. We will also add Cymbalta to assist and continue with gabapentin. 3. Hypomagnesemia persists with poor diet and nausea and vomiting. Will give 3 grams of magnesium sulfate today. 4. Constipation. We will give Dulcolax suppository. 5. Depression, anxiety. The patient having more depression since being off of the escitalopram wit hout taper. We will begin Cymbalta to see if we can get pain control with this as well as her depre ssion and anxiety. 6. Hypercapnia. We will continue to monitor, especially in light of admitting the methadone to her pain control. We will continue with intermittent ABGs to monitor. Dictated By: PRICILA BRONSON MD, SR/NTS Conf#: [id number] DID#: [id number]
[2017-11-03] MEDS: ONDANSETRON 4 MG INJ IV PRN ×2 (11:54→21:31)
[2017-11-03 14:14] VITALS: BP 127/85; RESP 18
[2017-11-03 21:18] VITALS: BP 158/102; RESP 18
[2017-11-03] MEDS: DOCUSATE SODIUM 100 MG CAP PO SCH (21:35)
[2017-11-04] MEDS: DIAZEPAM 5 MG TAB PO PRN (00:48)
[2017-11-04] MEDS: DEXTROSE 5%-0.45% NACL 1,000 ML IV SCH ×3 (02:29→18:13)
[2017-11-04 02:35] VITALS: BP 107/58; RESP 18
[2017-11-04] MEDS: PANTOPRAZOLE (EC) 40 MG TAB PO SCH ×2 (05:35→18:19)
[2017-11-04] MEDS: BISACODYL 10 MG SUPP PR PRN (05:35)
[2017-11-04] MEDS: HYDROmorphONE 2 MG TAB PO PRN ×4 (05:42→23:16)
[2017-11-04 06:31] LABS: ABNORMAL IP MESSAGE 1; BASOPHILS % 0.6 % (0.0-2.0); EOSINOPHILS # 0.2 10^3/ul (0.0-0.5); EOSINOPHILS % 3.1 % (0.0-7.0); HEMATOCRIT 31.3 % (37.0-47.0); HEMOGLOBIN 9.3 g/dl (12.0-16.0); LYMPHOCYTES # 2.5 10^3/ul (0.8-2.9); LYMPHOCYTES % 36.1 % (15.0-51.0); MEAN CORPUSCULAR HGB CONC 29.7 g/dl (32.0-37.0); MEAN CORPUSCULAR VOLUME 80.9 fl (82.0-101.0); MONOCYTE # 0.6 10^3/ul (0.3-0.9); MONOCYTES % 8.8 % (0.0-11.0); NEUTROPHIL # 3.5 10^3/ul (1.6-7.5); PLATELET COUNT 398 10^3/UL (140-415); RED BLOOD COUNT 3.87 10^6/ul (4.20-5.40); RED CELL DISTRIBUTION WIDTH 25.8 % (11.5-14.5)
[2017-11-04 06:49] LABS: POSITIVE DIFF @See below
[2017-11-04 07:05] LABS: CALCIUM 9.2 mg/dl (8.4-10.2); CREATININE 0.87 mg/dl (0.44-1.00); MAGNESIUM 1.6 mg/dl (1.7-2.5); POTASSIUM 4.1 mmol/L (3.5-5.1)
[2017-11-04 08:00] VITALS: BP 124/77; RESP 16
[2017-11-04] MEDS: FERROUS SULFATE (EC) 325 MG TAB PO SCH (09:04)
[2017-11-04] MEDS: BELLADONNA/PHENOBARBITAL TAB PO SCH ×4 (09:04→22:35)
[2017-11-04] MEDS: DULOXETINE 20 MG CAP DR PO SCH (09:04)
[2017-11-04] MEDS: METHADONE 10 MG TAB PO SCH ×2 (09:04→21:32)
[2017-11-04] MEDS: GABAPENTIN 400 MG CAP PO SCH ×3 (09:04→21:30)
[2017-11-04 14:00] VITALS: BP 161/99; RESP 18
[2017-11-04 21:02] VITALS: BP 115/71; RESP 18
[2017-11-04] MEDS: DOCUSATE SODIUM 100 MG CAP PO SCH (21:30)
--- NOTE | 2017-11-04 23:35 | PN ---
Date/Time of Note Date/Time of Note DATE: 11/04/17 TIME: 23:35 Assessment/Plan VTE Prophylaxis VTE Prophylaxis Intervention: ambulation Lines/Catheters IV Catheter Type (from Nrsg): Peripheral IV Central line still needed: No Urinary Cath still in place: No Assessment/Plan Assessment/Plan 1. abd pain/ n&v causing low Mg 2. back pain/ h/o laminectomy/ long time pain meds dependent 3. depression ---cont all supportive cares ---stay tight with pain management plans ---inc daytime fluid ---replace Mg ---encourage out of bed ambulations Subjective 24 Hr Interval Summary Free Text/Dictation still having abd pain, back pain, n&v sensations Exam/Review of Systems Vital Signs Vitals Vital Signs Date Time Temp Pulse Resp B/P Pulse Ox O2 Delivery O2 Flow Rate FiO2 11/04/17 21:02 98.3 81 18 115/71 98 Intake and Output 11/03/17 11/03/17 11/04/17 15:00 23:00 07:00 Intake Total 2096 ml 400 ml Balance 2096 ml 400 ml Exam resp--cta cardiac--rr, no m abd--soft, nd, nt, no mass no edema low back musc tense, tender, musc spasm+ Results Result Diagram: 11/04/17 0532 11/04/17 0532 Results 24 hrs Laboratory Tests Test 11/04/17 05:32 White Blood Count 7.0 Red Blood Count 3.87 L Hemoglobin 9.3 L Hematocrit 31.3 L Mean Corpuscular Volume 80.9 L Mean Corpuscular Hemoglobin 24.0 L Mean Corpuscular Hemoglobin Concent 29.7 L Red Cell Distribution Width 25.8 H Platelet Count 398 Mean Platelet Volume 9.0 Neutrophils % 50.0 Lymphocytes % 36.1 Monocytes % 8.8 Eosinophils % 3.1 Basophils % 0.6 Nucleated Red Blood Cells % 0.0 Neutrophils # 3.5 Lymphocytes # 2.5 Monocytes # 0.6 Eosinophils # 0.2 Basophils # 0.0 Nucleated Red Blood Cells # 0.0 Sodium Level 144 Potassium Level 4.1 Chloride Level 101 Carbon Dioxide Level 34 H Anion Gap 13 Blood Urea Nitrogen 6 L Creatinine 0.87 Glucose Level 77 Calcium Level 9.2 Magnesium Level 1.6 L Medications Medications Current Medications Ondansetron HCl (Zofran Inj) 4 mg Q4H PRN IV NAUSEA AND/OR VOMITING Last administered on 11/03/17 21:31; Admin Dose 4 MG; Start 10/09/17 at 13:00 Diazepam (Valium) 10 mg HS PRN PO insomnia Last administered on 11/04/17 00:48 ; Admin Dose 10 MG; Start 10/09/17 at 13:00 Clonidine (Catapres) 0.1 mg Q6H PRN PO ELEVATED BLOOD PRESSURE Last administered on 10/12/17 05:07; Admin Dose 0.1 MG; Start 10/09/17 at 15:30 Pantoprazole 40 mg 40 mg BID@06,18 PO Last administered on 11/04/17 18:19; Admin Dose 40 MG; Start 10/11/17 at 18:00 Dextrose/Sodium Chloride (D5-1/2ns) 1,000 ml @ 125 mls/hr Q8H IV Last administered on 11/04/17 18:13; Admin Dose 125 MLS/HR; Start 10/16/17 at 18:30 Docusate Sodium (Colace) 200 mg HS PO Last administered on 11/04/17 21:30; Admin Dose 200 MG; Start 10/21/17 at 21:00 Gabapentin (Neurontin) 400 mg TID PO Last administered on 11/04/17 21:30; Admin Dose 400 MG; Start 10/24/17 at 09:00 Ferrous Sulfate (Ferrous Sulfate (Ec)) 325 mg DAILY PO Last administered on 09:04; Admin Dose 325 MG; Start 10/29/17 at 12:00 Methadone HCl (Methadone) 10 mg BID PO Last administered on 11/04/17 21:32; Admin Dose 10 MG; Start 11/02/17 at 09:00 Hydromorphone HCl (Dilaudid) 2 mg Q4H PRN PO PAIN Last administered on 23:16; Admin Dose 2 MG; Start 11/02/17 at 09:23 Bisacodyl (Dulcolax Supp) 10 mg DAILY PRN [place] CONSTIPATION Last administered on 11/04/17 05:35; Admin Dose 10 MG; Start 11/03/17 at 08:00 Duloxetine HCl (Cymbalta) 20 mg DAILY PO Last administered on 11/04/17 09:04; Admin Dose 20 MG; Start 11/03/17 at 09:00 Magnesium Chloride (Mag 64) 400 mg BID PO ; Start 11/05/17 at 09:00; Status UNV ELZBIETA GUERRERO MD Nov 04, 2017 23:35
[2017-11-05 02:00] VITALS: BP 121/79; RESP 19
[2017-11-05] MEDS: DEXTROSE 5%-0.45% NACL 1,000 ML IV SCH ×4 (02:54→22:47)
[2017-11-05] MEDS: DIAZEPAM 5 MG TAB PO PRN (02:54)
[2017-11-05] MEDS: PANTOPRAZOLE (EC) 40 MG TAB PO SCH ×2 (05:53→18:15)
[2017-11-05 05:55] LABS: ABNORMAL IP MESSAGE 1; BASOPHIL # 0.1 10^3/ul (0.0-0.1); BASOPHILS % 0.7 % (0.0-2.0); EOSINOPHILS # 0.3 10^3/ul (0.0-0.5); EOSINOPHILS % 4.4 % (0.0-7.0); HEMATOCRIT 26.9 % (37.0-47.0); HEMOGLOBIN 8.1 g/dl (12.0-16.0); LYMPHOCYTES # 2.6 10^3/ul (0.8-2.9); LYMPHOCYTES % 37.3 % (15.0-51.0); MEAN CORPUSCULAR HEMOGLOBIN 24.6 pg (29.0-33.0); MEAN CORPUSCULAR HGB CONC 30.1 g/dl (32.0-37.0); MEAN CORPUSCULAR VOLUME 81.8 fl (82.0-101.0); MEAN PLATELET VOLUME 8.8 fl (7.4-10.4); MONOCYTE # 0.7 10^3/ul (0.3-0.9); MONOCYTES % 10.1 % (0.0-11.0); NEUTROPHIL # 3.2 10^3/ul (1.6-7.5); NEUTROPHILS % 46.5 % (39.0-77.0); PLATELET COUNT 309 10^3/UL (140-415); RED BLOOD COUNT 3.29 10^6/ul (4.20-5.40); RED CELL DISTRIBUTION WIDTH 25.7 % (11.5-14.5); WHITE BLOOD COUNT 6.9 10^3/ul (4.8-10.8)
[2017-11-05 06:22] LABS: POSITIVE DIFF @See below
[2017-11-05 06:46] LABS: ALBUMIN 2.9 g/dl (3.3-4.9); CALCIUM 8.7 mg/dl (8.4-10.2); CREATININE 0.61 mg/dl (0.44-1.00); POTASSIUM 3.9 mmol/L (3.5-5.1)
[2017-11-05 08:00] VITALS: BP 92/66; RESP 17
[2017-11-05] MEDS: DULOXETINE 20 MG CAP DR PO SCH (09:37)
[2017-11-05] MEDS: GABAPENTIN 400 MG CAP PO SCH ×3 (09:37→21:41)
[2017-11-05] MEDS: FERROUS SULFATE (EC) 325 MG TAB PO SCH (09:37)
[2017-11-05] MEDS: METHADONE 10 MG TAB PO SCH ×2 (09:38→21:41)
[2017-11-05] MEDS: BELLADONNA/PHENOBARBITAL TAB PO SCH ×4 (09:38→21:41)
[2017-11-05] MEDS: MAGNESIUM OXIDE 400 MG TAB PO SCH ×2 (09:39→21:41)
[2017-11-05 14:00] VITALS: BP 102/75; RESP 18
[2017-11-05] MEDS: ONDANSETRON 4 MG INJ IV PRN (19:18)
[2017-11-05 20:34] VITALS: BP 130/70; RESP 21
--- NOTE | 2017-11-05 20:37 | PN ---
Date/Time of Note Date/Time of Note DATE: 11/05/17 TIME: 20:11 Assessment/Plan VTE Prophylaxis VTE Prophylaxis Intervention: ambulation Lines/Catheters IV Catheter Type (from Nrsg): Peripheral IV Central line still needed: No Urinary Cath still in place: No Assessment/Plan Assessment/Plan 1. abd pain, n/v, low alb, anemia, low Mg 2. ls disc ds--cont c/o mus c spasm pain+, pain dependent 3. depression/ anxiety ---per pain management ---consider reglan or creon or levsin ---consider psych counseling ---replace all low elements ---stay close to section cutter recommended diet menu/ schedule Subjective 24 Hr Interval Summary Free Text/Dictation "having pain always, current po dilaudid & methadone schedules are not working" Exam/Review of Systems Vital Signs Vitals Vital Signs Date Time Temp Pulse Resp B/P Pulse Ox O2 Delivery O2 Flow Rate FiO2 11/05/17 14:00 97.8 80 18 102/75 98 Intake and Output 11/04/17 11/04/17 11/05/17 14:59 22:59 06:59 Intake Total 2000 ml 1975 ml Balance 2000 ml 1975 ml Exam dishevelled, only 25-30% solid food eatten. before next meal time, vomited food she ate. rr cta no edema c/o low back musc fgivl-gcvem-cqvjy+/ global mid abd tender+ Results Result Diagram: 11/05/17 0513 11/05/17 0513 Results 24 hrs Laboratory Tests Test 11/05/17 05:13 White Blood Count 6.9 Red Blood Count 3.29 L Hemoglobin 8.1 L Hematocrit 26.9 L Mean Corpuscular Volume 81.8 L Mean Corpuscular Hemoglobin 24.6 L Mean Corpuscular Hemoglobin Concent 30.1 L Red Cell Distribution Width 25.7 H Platelet Count 309 # Mean Platelet Volume 8.8 Neutrophils % 46.5 Lymphocytes % 37.3 Monocytes % 10.1 Eosinophils % 4.4 Basophils % 0.7 Nucleated Red Blood Cells % 0.0 Neutrophils # 3.2 Lymphocytes # 2.6 Monocytes # 0.7 Eosinophils # 0.3 Basophils # 0.1 Nucleated Red Blood Cells # 0.0 Sodium Level 141 Potassium Level 3.9 Chloride Level 103 Carbon Dioxide Level 32 H Anion Gap 10 Blood Urea Nitrogen 5 L Creatinine 0.61 Glucose Level 92 Calcium Level 8.7 Albumin 2.9 L Medications Medications Current Medications Ondansetron HCl (Zofran Inj) 4 mg Q4H PRN IV NAUSEA AND/OR VOMITING Last administered on 11/05/17 19:18; Admin Dose 4 MG; Start 10/09/17 at 13:00 Diazepam (Valium) 10 mg HS PRN PO insomnia Last administered on 11/05/17 02: 54; Admin Dose 10 MG; Start 10/09/17 at 13:00 Clonidine (Catapres) 0.1 mg Q6H PRN PO ELEVATED BLOOD PRESSURE Last administered on 10/12/17 05:07; Admin Dose 0.1 MG; Start 10/09/17 at 15:30 Pantoprazole 40 mg 40 mg BID@06,18 PO Last administered on 11/05/17 18:15; Admin Dose 40 MG; Start 10/11/17 at 18:00 Dextrose/Sodium Chloride (D5-1/2ns) 1,000 ml @ 125 mls/hr Q8H IV Last administered on 11/05/17 13:56; Admin Dose 125 MLS/HR; Start 10/16/17 at 18: 30 Docusate Sodium (Colace) 200 mg HS PO Last administered on 11/04/17 21:30; Admin Dose 200 MG; Start 10/21/17 at 21:00 Gabapentin (Neurontin) 400 mg TID PO Last administered on 11/05/17 13:55; Admin Dose 400 MG; Start 10/24/17 at 09:00 Ferrous Sulfate (Ferrous Sulfate (Ec)) 325 mg DAILY PO Last administered on 09:37; Admin Dose 325 MG; Start 10/29/17 at 12:00 Methadone HCl (Methadone) 10 mg BID PO Last administered on 11/05/17 09:38; Admin Dose 10 MG; Start 11/02/17 at 09:00 Hydromorphone HCl (Dilaudid) 2 mg Q4H PRN PO PAIN Last administered on 23:16; Admin Dose 2 MG; Start 11/02/17 at 09:23 Bisacodyl (Dulcolax Supp) 10 mg DAILY PRN [place] CONSTIPATION Last administered on 11/04/17 05:35; Admin Dose 10 MG; Start 11/03/17 at 08:00 Duloxetine HCl (Cymbalta) 20 mg DAILY PO Last administered on 11/05/17 09:37 ; Admin Dose 20 MG; Start 11/03/17 at 09:00 Magnesium Oxide (Mag-Ox 400) 400 mg BID PO Last administered on 11/05/17 09: 39; Admin Dose 400 MG; Start 11/05/17 at 09:00 ELZBIETA GUERRERO MD Nov 05, 2017 20:21
[2017-11-05] MEDS: DOCUSATE SODIUM 100 MG CAP PO SCH (21:41)
[2017-11-06 00:23] VITALS: BP 121/74
[2017-11-06] MEDS: DIAZEPAM 5 MG TAB PO PRN (01:54)
[2017-11-06 02:53] VITALS: BP 139/76; RESP 18
[2017-11-06] MEDS: PANTOPRAZOLE (EC) 40 MG TAB PO SCH ×2 (05:29→17:17)
[2017-11-06 06:39] LABS: ABNORMAL IP MESSAGE 1; BASOPHILS % 0.5 % (0.0-2.0); EOSINOPHILS # 0.3 10^3/ul (0.0-0.5); EOSINOPHILS % 3.3 % (0.0-7.0); HEMATOCRIT 29.5 % (37.0-47.0); HEMOGLOBIN 8.9 g/dl (12.0-16.0); LYMPHOCYTES # 2.5 10^3/ul (0.8-2.9); LYMPHOCYTES % 31.5 % (15.0-51.0); MEAN CORPUSCULAR HEMOGLOBIN 24.8 pg (29.0-33.0); MEAN CORPUSCULAR HGB CONC 30.2 g/dl (32.0-37.0); MEAN CORPUSCULAR VOLUME 82.2 fl (82.0-101.0); MEAN PLATELET VOLUME 9.2 fl (7.4-10.4); MONOCYTE # 0.8 10^3/ul (0.3-0.9); MONOCYTES % 10.1 % (0.0-11.0); NEUTROPHIL # 4.2 10^3/ul (1.6-7.5); NEUTROPHILS % 53.2 % (39.0-77.0); PLATELET COUNT 335 10^3/UL (140-415); RED BLOOD COUNT 3.59 10^6/ul (4.20-5.40); RED CELL DISTRIBUTION WIDTH 25.5 % (11.5-14.5); WHITE BLOOD COUNT 7.9 10^3/ul (4.8-10.8)
[2017-11-06 06:45] LABS: POSITIVE DIFF @See below
[2017-11-06 06:50] VITALS: BP 122/76; PULSE 67
[2017-11-06] MEDS: HYDROmorphONE 2 MG TAB PO PRN (06:54)
[2017-11-06] MEDS: DEXTROSE 5%-0.45% NACL 1,000 ML IV SCH ×2 (06:55→18:04)
[2017-11-06 07:08] LABS: CALCIUM 8.8 mg/dl (8.4-10.2); CREATININE 0.67 mg/dl (0.44-1.00); MAGNESIUM 1.5 mg/dl (1.7-2.5); POTASSIUM 4.6 mmol/L (3.5-5.1)
[2017-11-06 08:01] VITALS: BP 129/77; RESP 20
[2017-11-06] MEDS: GABAPENTIN 400 MG CAP PO SCH ×3 (08:20→20:35)
[2017-11-06] MEDS: DULOXETINE 20 MG CAP DR PO SCH (08:20)
[2017-11-06] MEDS: FERROUS SULFATE (EC) 325 MG TAB PO SCH (08:20)
[2017-11-06] MEDS: MAGNESIUM OXIDE 400 MG TAB PO SCH ×2 (08:20→20:35)
[2017-11-06] MEDS: BELLADONNA/PHENOBARBITAL TAB PO SCH ×4 (08:20→20:35)
[2017-11-06] MEDS: METHADONE 10 MG TAB PO SCH ×2 (08:21→20:35)
[2017-11-06] MEDS ORDERED: MAGNESIUM SULFATE 3 GM in DEXTROSE 5% 100 ML IVPB ONE (09:00)
[2017-11-06] MEDS ORDERED: METHADONE 10 MG TAB PO SCH (09:00)
[2017-11-06 14:00] VITALS: BP 107/67; RESP 20
--- NOTE | 2017-11-06 16:09 | PN ---
DATE: 11/06/2017 SUBJECTIVE: The patient complains of ongoing abdominal pain, nausea and vomiting as well as severe headache associated with the methadone OBJECTIVE: VITAL SIGNS: Temperature 98.5, pulse 67, respirations 18, blood pressure 122/76, oxygen saturation 98% on room air. GENERAL: Well-developed, ill-appearing female in no acute distress, lying in bed. LUNGS: Clear to auscultation bilaterally. HEART: Regular rate and rhythm. ABDOMEN: Soft, mild distention, monitor severe tenderness to minimal palpation, decreased bowel galileo nds. NEUROLOGIC: Nonfocal. LABORATORY DATA: Sodium 143, potassium 4.6, chloride 102, bicarbonate 34, BUN 5, creatinine 0.67, b lood sugar of 88. Magnesium was 1.5, hemoglobin 8.9. White blood cell count 7.9, hematocrit 29.5, platelets 235. ASSESSMENT AND PLAN: 1. Abdominal pain/nausea and vomiting persists, although patient reports somewhat better, although she continues to have nausea and vomiting. Will continue to adjust meds. 2. Post-laminectomy, syndrome/back pain/vertebral compression fracture patient continues to have si gnificant pain and methadone may be giving patient a headache. The patient is willing to wait anoth er day the day to see if things settle down but may have to discontinue the methadone in exchange fo r another long-acting pain medication: 3. Hypomagnesemia persists, will continue with replacement give 3 grams of IV magnesium sulfate tod ay. 4. Anemia. Stable. We will continue to monitor. 5. Hypercapnia is improved and will continue to monitor intermittently but no need for BiPAP or oth er at this time. on nodes #[id number]. Dictated By: PRICILA BRONSON MD SR/NTS Conf#: [id number] DID#: [id number]
[2017-11-06 19:55] VITALS: BP 114/75; RESP 18
[2017-11-06] MEDS: DOCUSATE SODIUM 100 MG CAP PO SCH (20:35)
[2017-11-07 02:21] VITALS: BP 125/78; RESP 18
[2017-11-07] MEDS: DEXTROSE 5%-0.45% NACL 1,000 ML IV SCH ×5 (04:06→21:14)
[2017-11-07] MEDS: PANTOPRAZOLE (EC) 40 MG TAB PO SCH ×2 (06:12→17:38)
[2017-11-07 06:54] LABS: ABNORMAL IP MESSAGE 1; BASOPHIL # 0.1 10^3/ul (0.0-0.1); BASOPHILS % 0.5 % (0.0-2.0); EOSINOPHILS # 0.3 10^3/ul (0.0-0.5); EOSINOPHILS % 3.4 % (0.0-7.0); HEMATOCRIT 31.7 % (37.0-47.0); HEMOGLOBIN 9.4 g/dl (12.0-16.0); LYMPHOCYTES # 2.1 10^3/ul (0.8-2.9); LYMPHOCYTES % 22.4 % (15.0-51.0); MEAN CORPUSCULAR HEMOGLOBIN 24.4 pg (29.0-33.0); MEAN CORPUSCULAR HGB CONC 29.7 g/dl (32.0-37.0); MEAN CORPUSCULAR VOLUME 82.1 fl (82.0-101.0); MEAN PLATELET VOLUME 9.2 fl (7.4-10.4); NEUTROPHILS % 62.9 % (39.0-77.0); PLATELET COUNT 370 10^3/UL (140-415); RED BLOOD COUNT 3.86 10^6/ul (4.20-5.40); RED CELL DISTRIBUTION WIDTH 25.9 % (11.5-14.5); WHITE BLOOD COUNT 9.5 10^3/ul (4.8-10.8)
[2017-11-07] MEDS: HYDROmorphONE 2 MG TAB PO PRN ×2 (06:54→15:15)
[2017-11-07 06:58] LABS: POSITIVE DIFF @See below
[2017-11-07 07:18] LABS: CALCIUM 9.1 mg/dl (8.4-10.2); CREATININE 0.68 mg/dl (0.44-1.00); MAGNESIUM 1.9 mg/dl (1.7-2.5); POTASSIUM 5.4 mmol/L (3.5-5.1)
[2017-11-07 07:32] VITALS: BP 116/77; RESP 20
[2017-11-07] MEDS: BELLADONNA/PHENOBARBITAL TAB PO SCH ×4 (08:07→21:10)
[2017-11-07] MEDS: MAGNESIUM OXIDE 400 MG TAB PO SCH ×2 (08:07→21:10)
[2017-11-07] MEDS: GABAPENTIN 400 MG CAP PO SCH ×3 (08:07→21:09)
[2017-11-07] MEDS: TRIMETHOPRIM/SULFAMETHOX (DS) TAB PO SCH ×2 (08:07→21:10)
[2017-11-07] MEDS: DULOXETINE 20 MG CAP DR PO SCH (08:08)
[2017-11-07] MEDS: METHADONE 10 MG TAB PO SCH ×2 (08:08→21:10)
[2017-11-07] MEDS: FERROUS SULFATE (EC) 325 MG TAB PO SCH (08:11)
--- NOTE | 2017-11-07 10:12 | PN ---
DATE: 11/07/2017 SUBJECTIVE: Patient with less headache, slightly improved overall pain, still with some nausea, occ asional vomiting. OBJECTIVE: VITAL SIGNS: Temperature 98.1, pulse 80, respirations 20, blood pressure 116/77, oxygen saturation 95% on room air. GENERAL: Well-developed, ill-appearing female in no acute distress, lying in bed. EXTREMITIES: There is edema, erythema and tenderness to palpation with small pustule at an IV site dorsum right hand, no lymphangitic spread. CHEST: Clear to auscultation bilaterally. HEART: Regular rate and rhythm. ABDOMEN: Soft, nondistended. There is mild to moderate epigastric tenderness to palpation. NEUROLOGIC: Nonfocal. LABORATORY DATA: Potassium is 5.4, sodium 143, chloride of 101, bicarbonate 37, BUN of 6, creatinin e 0.68. Magnesium is 1.9, hemoglobin is 9.4, hematocrit is 31.7, platelets 370, white blood cell co unt 9.5. ASSESSMENT AND PLAN: 1. Abdominal pain/nausea and vomiting, slightly improved with less nausea and vomiting yesterday an d slight improvement in her abdominal pain. We will continue with current treatment plan. 2. Post-laminectomy syndrome/vertebral compression fracture/back pain, somewhat improved with metha done, no further headache. We will continue with this and avoid increasing the dosage at this time. The patient continues to improve and anticipate discharge home on . 3. Hypomagnesemia, improved. No need for further replacement today. 4. Phlebitis, patient with evidence of superficial thrombophlebitis in the right hand at an IV site . Will do compresses and start antibiotics. 5. Anemia, stable. Continue to monitor. 6. Hypercapnia remains stable, but patient has had some somnolence and will continue to use incenti ve spirometer to improve her hypoventilation. Dictated By: PRICILA BRONSON MD SR/GLORIA Conf#: [id number] DID#: [id number]
[2017-11-07 14:16] VITALS: BP 110/76; RESP 20
[2017-11-07 20:16] VITALS: BP 127/77; RESP 18
[2017-11-07] MEDS: DOCUSATE SODIUM 100 MG CAP PO SCH (21:10)
[2017-11-08 03:21] VITALS: BP 123/74; RESP 18
[2017-11-08] MEDS: DEXTROSE 5%-0.45% NACL 1,000 ML IV SCH ×3 (05:40→23:12)
[2017-11-08] MEDS: PANTOPRAZOLE (EC) 40 MG TAB PO SCH ×2 (05:40→17:39)
[2017-11-08 05:57] LABS: ABNORMAL IP MESSAGE 1; BASOPHIL # 0.1 10^3/ul (0.0-0.1); BASOPHILS % 0.4 % (0.0-2.0); EOSINOPHILS # 0.1 10^3/ul (0.0-0.5); EOSINOPHILS % 1.1 % (0.0-7.0); HEMATOCRIT 29.1 % (37.0-47.0); HEMOGLOBIN 8.8 g/dl (12.0-16.0); LYMPHOCYTES # 1.6 10^3/ul (0.8-2.9); LYMPHOCYTES % 13.4 % (15.0-51.0); MEAN CORPUSCULAR HEMOGLOBIN 24.6 pg (29.0-33.0); MEAN CORPUSCULAR HGB CONC 30.2 g/dl (32.0-37.0); MEAN CORPUSCULAR VOLUME 81.5 fl (82.0-101.0); MEAN PLATELET VOLUME 8.7 fl (7.4-10.4); MONOCYTE # 0.9 10^3/ul (0.3-0.9); MONOCYTES % 7.7 % (0.0-11.0); NEUTROPHIL # 9.1 10^3/ul (1.6-7.5); NEUTROPHILS % 76.6 % (39.0-77.0); PLATELET COUNT 339 10^3/UL (140-415); RED BLOOD COUNT 3.57 10^6/ul (4.20-5.40); RED CELL DISTRIBUTION WIDTH 25.8 % (11.5-14.5); WHITE BLOOD COUNT 11.8 10^3/ul (4.8-10.8)
[2017-11-08 06:06] LABS: POSITIVE DIFF @See below
[2017-11-08 06:24] LABS: CALCIUM 8.6 mg/dl (8.4-10.2); CREATININE 0.67 mg/dl (0.44-1.00); MAGNESIUM 1.6 mg/dl (1.7-2.5); POTASSIUM 4.2 mmol/L (3.5-5.1)
[2017-11-08 08:25] VITALS: BP 125/69; RESP 17
[2017-11-08] MEDS: BELLADONNA/PHENOBARBITAL TAB PO SCH ×4 (08:25→20:45)
[2017-11-08] MEDS: MAGNESIUM OXIDE 400 MG TAB PO SCH ×2 (08:51→20:46)
[2017-11-08] MEDS: METHADONE 10 MG TAB PO SCH ×2 (08:51→20:46)
[2017-11-08] MEDS: TRIMETHOPRIM/SULFAMETHOX (DS) TAB PO SCH ×2 (08:51→20:46)
[2017-11-08] MEDS: FERROUS SULFATE (EC) 325 MG TAB PO SCH (08:51)
[2017-11-08] MEDS: GABAPENTIN 400 MG CAP PO SCH ×3 (08:51→20:45)
[2017-11-08] MEDS: DULOXETINE 20 MG CAP DR PO SCH ×2 (09:00→11:12)
[2017-11-08 09:41] LABS: AADO2 Arterial 26.7 mmHg (7.0-24.0); Allen Test ACCEPTAB; Arterial Base Excess 4.5 mmol/L (-3.0-3); Arterial COHb 0.3 % (0.0-3.0); Arterial Fraction of Oxyhgb 92.4 % (93.0-99.0); Arterial HCO3 29.9 mmol/L (22.0-26.0); Arterial MetHb 0.3 % (0.0-1.5); Arterial Total Hemglobin 10.4 g/dl (12.0-18.0); MODE ROOM AIR
[2017-11-08] MEDS ORDERED: MAGNESIUM SULFATE 3 GM in DEXTROSE 5% 100 ML IVPB ONE (10:00)
--- NOTE | 2017-11-08 11:35 | PN ---
DATE: 11/08/2017 SUBJECTIVE: The patient continues to have some nausea, vomiting but less. The patient continues to have moderate to severe back pain and abdominal pain. The abdominal pain is slightly improved. The patient continues to have right wrist pain and swelling. OBJECTIVE: VITAL SIGNS: Temperature 98.2, pulse 94, respirations 18, blood pressure 123/74 , oxygen saturation 96% on room air. GENERAL: Well-developed, thin female in no acute distress, sitting up in bed. CHEST: Clear to auscultation bilaterally. HEART: Tachycardic, but regular. ABDOMEN: Soft, nondistended, moderate epigastric tenderness to palpation. Normoactive bowel sounds. EXTREMITIES: Right upper extremity with 2+ edema with erythema, pustule at the dorsal wrist with moderate tenderness to palpation. NEUROLOGIC: Nonfocal. LABORATORY DATA: Magnesium of 1.6. Sodium 137, potassium 4.2, chloride of 96, bicarbonate 32, BUN of 6, creatinine 0.67. White blood cell count 11.8 thousand , hemoglobin 8.8, hematocrit of 29.1, platelets 339. ASSESSMENT AND PLAN: 1. Abdominal pain/nausea and vomiting. The patient with gastritis, esophagitis. He continues to have some nausea and vomiting, but somewhat improved. We will continue with current medications and treatment plan. 2. Post-laminectomy syndrome/vertebral compression fracture/back pain, stable, but persistent. We will continue with current medications and adjust as necessary likely as an outpatient. 3. Superficial thrombophlebitis, stable, but persistent. The patient on antibiotics and using hot compresses, elevation. We will continue with this plan. 4. Hypomagnesemia, worse. We will continue with replacement and give 3 grams IV magnesium sulfate x1. 5. Anemia, stable. Continue to monitor. 6. Hypercapnia. The patient continues to have this as a problem. Continue to use incentive spirometer. We will check an arterial blood gas today in anticipation of possible discharge home tomorrow. 7. Discharge planning. The patient possible for discharge home tomorrow if remains stable and see improvement in the thrombophlebitis and we will arrange for home health. 8.Protein-calorie malnutrition-severe:stable and present at admission; encourage increased calorie intake with protein supplements/drinks, ricardo when pt goes home. Dictated By: PRICILA BRONSON MD SR/NTS Conf#: [id number] [facility]#: [id number] MTDD
[2017-11-08 14:00] VITALS: BP 110/56; RESP 18
[2017-11-08] MEDS: HYDROmorphONE 2 MG TAB PO PRN (15:37)
[2017-11-08] MEDS: BISACODYL 10 MG SUPP PR PRN (17:39)
[2017-11-08 20:05] VITALS: BP 119/81; RESP 18
[2017-11-08] MEDS: DOCUSATE SODIUM 100 MG CAP PO SCH (20:46)
[2017-11-09] MEDS: HYDROmorphONE 2 MG TAB PO PRN ×2 (00:19→04:46)
[2017-11-09 04:00] VITALS: BP 140/84; RESP 19
[2017-11-09] MEDS: PANTOPRAZOLE (EC) 40 MG TAB PO SCH (06:04)
[2017-11-09 06:42] LABS: ABNORMAL IP MESSAGE 1; BASOPHILS % 0.4 % (0.0-2.0); EOSINOPHILS # 0.2 10^3/ul (0.0-0.5); EOSINOPHILS % 2.8 % (0.0-7.0); HEMATOCRIT 26.6 % (37.0-47.0); LYMPHOCYTES # 2.1 10^3/ul (0.8-2.9); LYMPHOCYTES % 29.6 % (15.0-51.0); MEAN CORPUSCULAR HEMOGLOBIN 24.5 pg (29.0-33.0); MEAN CORPUSCULAR HGB CONC 30.1 g/dl (32.0-37.0); MEAN CORPUSCULAR VOLUME 81.6 fl (82.0-101.0); MONOCYTE # 0.9 10^3/ul (0.3-0.9); MONOCYTES % 12.3 % (0.0-11.0); NEUTROPHIL # 3.9 10^3/ul (1.6-7.5); NEUTROPHILS % 54.2 % (39.0-77.0); PLATELET COUNT 297 10^3/UL (140-415); RED BLOOD COUNT 3.26 10^6/ul (4.20-5.40); RED CELL DISTRIBUTION WIDTH 25.7 % (11.5-14.5); WHITE BLOOD COUNT 7.2 10^3/ul (4.8-10.8)
[2017-11-09 06:50] LABS: POSITIVE DIFF @See below
[2017-11-09] MEDS: DEXTROSE 5%-0.45% NACL 1,000 ML IV SCH (07:10)
--- NOTE | 2017-11-09 07:44 | PDOCDIS ---
Discharge Instructions DIAGNOSIS Discharge Diagnosis gastritis;esophagitis; postlaminectomy syndrome/vertebral compression fracture CONDITION Patient Condition: Fair HOME CARE INSTRUCTIONS: Diet Instructions: RegularSpecial Diet: REGULAR DIET ACTIVITY: Activity Restrictions: Slowly Increase Activity FOLLOW UP/APPOINTMENTS Follow-up Plan follow up with Dr. Grimm in the next week;call for appt REFERRALS Agency Name and Phone Number: [facility] PRICILA GRIMM MD- Nov 09, 2017 07:44
[2017-11-09 07:51] LABS: CALCIUM 8.8 mg/dl (8.4-10.2); CREATININE 0.8 mg/dl (0.44-1.00); MAGNESIUM 1.7 mg/dl (1.7-2.5)
[2017-11-09] MEDS ORDERED: PANT40TA4 PO (07:51)
[2017-11-09] MEDS ORDERED: [UNRECOGNIZED DRUG - CODE] PO (07:51)
[2017-11-09] MEDS ORDERED: DULO20CA43 PO (07:51)
[2017-11-09] MEDS ORDERED: SULF-182 PO (07:51)
[2017-11-09] MEDS ORDERED: MAGN400T27 PO (07:51)
[2017-11-09] MEDS ORDERED: METH10TA2 PO (07:51)
[2017-11-09] MEDS ORDERED: GABA400C14 PO (07:51)
[2017-11-09] MEDS ORDERED: ONDA4VIA2 IV (07:51)
[2017-11-09] MEDS ORDERED: FER325 PO (07:51)
[2017-11-09 08:00] VITALS: BP 124/74; RESP 16
[2017-11-09] MEDS: DULOXETINE 20 MG CAP DR PO SCH (09:00)
[2017-11-09] MEDS: FERROUS SULFATE (EC) 325 MG TAB PO SCH (09:58)
[2017-11-09] MEDS: MAGNESIUM OXIDE 400 MG TAB PO SCH (09:58)
[2017-11-09] MEDS: METHADONE 10 MG TAB PO SCH (09:59)
[2017-11-09] MEDS: BELLADONNA/PHENOBARBITAL TAB PO SCH (09:59)
[2017-11-09] MEDS: TRIMETHOPRIM/SULFAMETHOX (DS) TAB PO SCH (09:59)
[2017-11-09] MEDS: GABAPENTIN 400 MG CAP PO SCH (09:59)
--- NOTE | 2017-11-09 16:51 | PN ---
DATE: 11/09/2017 SUBJECTIVE: The patient is feeling better, minimal nausea, vomiting, still with moderate to severe back pain, but better abdominal pain. Patient has less right wrist, hand pain. OBJECTIVE: VITAL SIGNS: Temperature 98.1, pulse 71, respirations 19, blood pressure 140/84 , oxygen saturation 95% on room air. GENERAL: Well-developed, thin female in no acute distress, sitting in bed. LUNGS: Clear to auscultation bilaterally. HEART: Regular rate and rhythm. ABDOMEN: Mild to moderate epigastric tenderness. Normoactive bowel sounds, nondistended. EXTREMITIES: No cyanosis, clubbing. There is edema and erythema and tenderness in the right dorsal hand. No drainage, no lymphangitic spread. NEUROLOGIC: Nonfocal. LABORATORY DATA: Hemoglobin of 8, hematocrit of 26.6, white blood cell count 7.2, platelets 297. Arterial blood gas done 11/08/2017, room air shows pH 7.406 , pCO2 of 48.7, pO2 of 64.7, oxygen saturation 93% on room air ASSESSMENT AND PLAN: 1. Abdominal pain/nausea, vomiting/gastritis and esophagitis. The patient is improved. We will discharge home on pantoprazole b.i.d., p.r.n. Zofran and . 2. Post-laminectomy syndrome/vertebral compression fracture/back pain, somewhat improved. We will discharge the patient home on methadone, gabapentin , duloxetine. 3. Hypomagnesemia, improved. We will continue p.o. magnesium oxide and diet. 4. Depression, anxiety, stable. Continue with duloxetine and adjust as needed. 5. Anemia. Continue with iron replacement. 6. Hypercapnia, improved, but the patient continues to be at risk due to medications. Will continue use incentive spirometer and continue off of smoking. This is what contributed to her problems. 7.Protein Calorie malnutrition-severe:stable but present prior to admission: will continue to encourage increased protein intake and supplements especially after d/c and do f/u labs to follow progress. DISCHARGE PLANNIN. Patient is stable for discharge home. The patient should follow up Dr. Grimm within 1 week and call for an appointment. 2. We will have home health see the patient and give physical therapy, as well as monitor her condition. DISCHARGE DIET: Regular. Dictated By: PRICILA GRIMM MD SR/NTS Conf#: [id number] [facility]#: [id number] MTDD
== END 2017-11-09 11:39 | disposition home or self-care (01) | DRG 391 ==
LOC: PP2 11:49
PROVIDERS: ADMIT Internal Medicine; ATTEND Internal Medicine
PROC: 0DB98ZX Excision of Duodenum, Via Natural or Artificial Opening Endoscopic, Diagnostic (ICD-10-PCS; 2017-10-10)
PROC: 0DB68ZX Excision of Stomach, Via Natural or Artificial Opening Endoscopic, Diagnostic (ICD-10-PCS; 2017-10-10)
PROC: 0DB48ZX Excision of Esophagogastric Junction, Via Natural or Artificial Opening Endoscopic, Diagnostic (ICD-10-PCS; 2017-10-10)
PROC: CD171ZZ Planar Nuclear Medicine Imaging of Gastrointestinal Tract using Technetium 99m (Tc-99m) (ICD-10-PCS; 2017-10-10)
PROC: 30233N1 Transfusion of Nonautologous Red Blood Cells into Peripheral Vein, Percutaneous Approach (ICD-10-PCS; principal; 2017-10-10 16:00)
PROC: 0DBK8ZX Excision of Ascending Colon, Via Natural or Artificial Opening Endoscopic, Diagnostic (ICD-10-PCS; 2017-10-13)
PROC: 0DBN8ZX Excision of Sigmoid Colon, Via Natural or Artificial Opening Endoscopic, Diagnostic (ICD-10-PCS; 2017-10-13)
PROC: 0DBM8ZX Excision of Descending Colon, Via Natural or Artificial Opening Endoscopic, Diagnostic (ICD-10-PCS; 2017-10-13)
DX: K29.70 Gastritis, unspecified, without bleeding (principal); E43 Unspecified severe protein-calorie malnutrition; M48.54XA Collapsed vertebra, not elsewhere classified, thoracic region, initial encounter for fracture; E83.42 Hypomagnesemia; E83.39 Other disorders of phosphorus metabolism; I80.9 Phlebitis and thrombophlebitis of unspecified site; D50.9 Iron deficiency anemia, unspecified; F32.9 Major depressive disorder, single episode, unspecified; F41.9 Anxiety disorder, unspecified; M54.16 Radiculopathy, lumbar region; K22.70 Barrett's esophagus without dysplasia; K57.90 Diverticulosis of intestine, part unspecified, without perforation or abscess without bleeding; K21.0 Gastro-esophageal reflux disease with esophagitis; K59.00 Constipation, unspecified; R09.02 Hypoxemia; E87.6 Hypokalemia; M81.0 Age-related osteoporosis without current pathological fracture; Z85.42 Personal history of malignant neoplasm of other parts of uterus; M96.1 Postlaminectomy syndrome, not elsewhere classified; G89.29 Other chronic pain; K63.5 Polyp of colon; M51.35 Other intervertebral disc degeneration, thoracolumbar region; F17.210 Nicotine dependence, cigarettes, uncomplicated; R06.89 Other abnormalities of breathing
CPT/HCPCS: 36430; 36600; 70450; 71010; 72146; 74177; 74185; 78264; 80048; 80053; 82040; 82150; 82270; 82607; 82728; 82746; 82803; 83540; 83690; 83735; 85025; 85610; 85730; 86850; 86900; 86901; 86920; 88305; 88312; 88313; 93005; 97110; 97116; 97162; 97530; A9541; C9113; J0360; J1170; J1200; J2270; J2370; J2405; J2765; J2916; J3475; J3480; J7042; P9016; Q9967

== ENCOUNTER 2018-03-03 19:04 | Emergency (ER) | END 2018-03-04 00:45 | disposition home or self-care (01) ==

== ENCOUNTER 2018-08-17 19:47 | Emergency (ER) | END 2018-08-17 23:14 | disposition home or self-care (01) ==

== ENCOUNTER 2019-08-03 11:34 | Emergency (ER) | payer OTHER, MEDICAID ==
[~2019-08-03] VITALS: Ht 165.1 cm; Wt 45.2 kg
[~2019-08-03 11:34] MED LIST changes: -CHLO1CAP56 PO; -DIAZ10TA4 PO; +DICY10CA40 PO; +DIPH1TAB PO; +DULO20CA43 PO; -ESCI10TA PO; -ESOM40CA PO; +FER325 PO; +GABA400C14 PO; +HYDR-4011 PO; -HYDR2TAB36 PO; +MAGN400T27 PO; +METH10TA2 PO; +NAPR-985 PO; +ONDA4TAB14 PO; -ONDA4TAB35 PO; +ONDA4VIA6 IV; +OXYC-279 PO; -OXYC40TA26 PO; +PANT40TA4 PO; -SUCR1TAB27 PO; +SULF-182 PO; +[UNRECOGNIZED DRUG - CODE] PO
[2019-08-03 11:41] VITALS: Ht 165.1 cm; Wt 45.2 kg
[2019-08-03] MEDS ORDERED: morphine 4 MG/ML VIAL IV STA (11:54)
[2019-08-03] MEDS ORDERED: SOD CHLORIDE 0.9% 1,000 ML IV STA (11:54)
[2019-08-03] MEDS ORDERED: ONDANSETRON 4 MG INJ IV STA (11:54)
[2019-08-03] MEDS ORDERED: DICYCLOMINE 10 MG CAP PO ONE (12:00)
[2019-08-03] MEDS ORDERED: HYDROmorphONE 1 MG/ML SYG IV STA (12:51)
[2019-08-03 14:29] VITALS: BP 119/86; PULSE 84; RESP 18
== END 2019-08-03 14:31 | disposition home or self-care (01) ==
LOC: E/R 11:34
DX: R10.84 Generalized abdominal pain (principal); R11.2 Nausea with vomiting, unspecified; R19.7 Diarrhea, unspecified; I10 Essential (primary) hypertension; Z85.3 Personal history of malignant neoplasm of breast; Z85.43 Personal history of malignant neoplasm of ovary; Z85.828 Personal history of other malignant neoplasm of skin; Z87.891 Personal history of nicotine dependence
CPT/HCPCS: 36415; 74176; 80053; 83690; 85025; 96361; 96374; 96375; 99285; J1170; J2270; J2405; J7030